=== PATIENT | female | born 1930 | race Asian ===

== ENCOUNTER → 2016-10-31 | Outpatient (CLI) | payer MEDICARE, OTHER | LOC: RAD 17:38 | PROVIDERS: ATTEND Family Medicine | DX: M25.551 Pain in right hip (principal) | CPT/HCPCS: 72110 ==

== ENCOUNTER 2016-11-03 04:18 | Emergency (ER) | payer MEDICARE, OTHER ==
[2016-11-03 04:42] VITALS: BP 171/62
--- NOTE | 2016-11-03 05:03 | ER Document Report ---
ED Hip Pain/Injury - General Chief Complaint: Hip Pain Stated Complaint: HIP PAIN Mode of Arrival: Medic Information source: Patient, Relative Notes: Pt is an 86 year old female who presents to the ER today for right hip pain that comes and goes and is worse with standing. She states it has been present for a few weeks, received an x-ray of the hip on the third of this month, 3 days ago which was negative for any acute pathology, however she did follow-up with orthopedics who states that on physical exam they believe that the hip is fractured, they have placed an MRI for next week. Daughter states that she was complaining of pain so badly today that she decided to bring her back and be further evaluated here in the emergency department for the hip pain, thinking that it is a fracture at this time. Patient denies any numbness, tingling or shooting pain anywhere else. Daughter also states the patient is being treated for UTI and has had 24 hours of an antibiotic, seems better as she apparently had an altered mental status prior to taking antibiotics and daughter states that she is back to her baseline now. Daughter does not remember what the antibiotic is called. Daughter also states that patient may or may not have had some chest pain earlier today on the right side of her chest. She has no history of heart attack or stroke. Patient denies chest pain at this time or prior today. TRAVEL OUTSIDE OF THE [place] IN LAST 30 DAYS: No - Related Data Allergies/Adverse Reactions: rosuvastatin calcium [From Crestor] Allergy (Unknown, Verified 11/03/16 04:42) "Symptoms like the flu" Past Medical History - General Information source: Patient, Relative - Social History Smoking Status: Unknown if Ever Smoked Frequency of alcohol use: None Drug Abuse: None Family History: Reviewed & Not Pertinent Patient has suicidal ideation: No Patient has homicidal ideation: No - Past Medical History Cardiac Medical History: Reports: Hx Congestive Heart Failure, Hx Coronary Artery Disease, Hx Heart Attack - PER EKG READING ON 03/25/14, Hx Hypercholesterolemia, Hx Hypertension Pulmonary Medical History: Reports: Hx COPD, Hx Pneumonia - Hx of 12/2014 Denies: Hx Asthma, Hx Bronchitis, Hx Tuberculosis Neurological Medical History: Denies: Hx Cerebrovascular Accident, Hx Seizures Endocrine Medical History: Reports: Hx Diabetes Mellitus Type 2 Renal/ Medical History: Reports: Hx End Stage Renal Disease GI Medical History: Reports: Hx Gastroesophageal Reflux Disease Musculoskeltal Medical History: Reports Hx Arthritis Traumatic Medical History: Reports: Hx Fractures - RECENT PELVIS Fx Past Surgical History: Reports: Hx Hysterectomy, Hx Orthopedic Surgery - left knee, Hx Vascular Surgery - Immunizations Hx Diphtheria, Pertussis, Tetanus Vaccination: No - unknown Hx Pneumococcal Vaccination: 10/29/13 Review of Systems - Review of Systems Constitutional: No symptoms reported EENT: No symptoms reported Cardiovascular: See HPI Respiratory: No symptoms reported Gastrointestinal: No symptoms reported Genitourinary: See HPI Female Genitourinary: No symptoms reported Musculoskeletal: See HPI Skin: No symptoms reported Hematologic/Lymphatic: No symptoms reported Neurological/Psychological: No symptoms reported Physical Exam - Vital signs Vitals: Temp Pulse Resp BP Pulse Ox 98.5 F 74 16 171/62 H 95 11/03/16 04:41 11/03/16 04:41 11/03/16 04:41 11/03/16 04:41 11/03/16 04:41 - Notes Notes: PHYSICAL EXAMINATION: GENERAL: Well-appearing and in no acute distress. HEAD: Atraumatic, normocephalic. EYES: Pupils equal round and reactive to light, extraocular movements intact, sclera anicteric, conjunctiva are normal. NECK: Normal range of motion, supple without lymphadenopathy LUNGS: CTAB and equal. No wheezes rales or rhonchi. HEART: Chest Nontender to palpation, Regular rate and rhythm without murmurs ABDOMEN: Soft, no tenderness. No guarding, no rebound BACK: Right SI joint tenderness, no tenderness to the right lateral hip or femur , no vertebral tenderness, normal ROM GI/: no CVA tenderness EXTREMITIES: Normal range of motion, no pitting edema. No cyanosis. NEUROLOGICAL: Cranial nerves grossly intact. Normal sensory/motor exams. PSYCH: Normal mood, normal affect. SKIN: Warm, Dry, normal turgor, no rashes or lesions noted Course - Re-evaluation Re-evalutation: 11/03/16 06:40 Lab work is unremarkable today, patient is at her baseline with kidney function with slightly elevated potassium but has dialysis in 1-1/2 hours. She will be discharged from here to go to dialysis on time. White count is normal here, patient does have a UTI but daughter states that she looks much better and is already on antibiotics that she's only been on for 2 doses. Advise her to continue those. CT of the hip/pelvis was performed and negative for any fracture or acute pathology. Patient is actually tender directly over the SI joint only, I will treat her with a muscle relaxer as she already takes narcotic pain medication at home and I will not give her steroids due to her chronic illnesses and dialysis. EKG was completely unchanged from recent EKG months ago with no evidence of abnormality or ischemia. 11/03/16 07:04 - Vital Signs Vital signs: Temp Pulse Resp BP Pulse Ox 98.5 F 74 16 171/62 H 95 11/03/16 04:41 11/03/16 04:41 11/03/16 04:41 11/03/16 04:41 11/03/16 04:41 - Laboratory Result Diagrams: 11/03/16 05:12 11/03/16 05:12 Laboratory results interpreted by me: 11/03/16 11/03/16 11/03/16 05:05 05:12 05:12 MCV 102 H MCH 33.6 H Potassium 5.4 H Chloride 97 L Carbon Dioxide 21 L Anion Gap 20 H BUN 54 H Creatinine 6.25 H Est GFR ( Amer) 8 L Est GFR (Non-Af Amer) 6 L Urine Protein 100 H Ur Leukocyte Esterase MODERATE H Discharge - Discharge Clinical Impression: Hip pain Qualifiers: Laterality: right Qualified Code(s): M25.551 - Pain in right hip UTI (urinary tract infection) Qualifiers: Urinary tract infection type: site unspecified Hematuria presence: without hematuria Qualified Code(s): N39.0 - Urinary tract infection, site not specified Condition: Stable Disposition: HOME, SELF-CARE Instructions: Urinary Tract Infection ([facility]) Additional Instructions: Return immediately for any new or worsening symptoms. Follow up with primary care provider, call tomorrow to make followup appointment. Prescriptions: Methocarbamol [Robaxin 500 mg Tablet] 500 mg PO QID PRN #40 tablet PRN Reason: Referrals: MC GONZALEZ MD [Primary Care Provider] - Follow up as needed
[2016-11-03 05:30] LABS: ABSOLUTE BASOPHILS # (AUTO) 0.1 10^3/uL (0.0-0.2); ABSOLUTE EOSINOPHILS # (AUTO) 0.2 10^3/uL (0.0-0.6); ABSOLUTE LYMPHOCYTES (AUTO) 1.2 10^3/uL (0.5-4.7); ABSOLUTE MONOCYTES (AUTO) 0.5 10^3/uL (0.1-1.4); BASOPHILS % (AUTO) 0.8 % (0-2); EOSINOPHILS % (AUTO) 2.3 % (0-6); HEMATOCRIT 38.2 % (36.0-47.0); HEMOGLOBIN 12.6 g/dL (12.0-15.5); HGB HCT DIFFERENCE -0.4; LYMPHOCYTES % (AUTO) 15.3 % (13-45); MEAN CORPUSCULAR HEMOGLOBIN 33.6 pg (27.0-33.4); MEAN CORPUSCULAR HGB CONC 32.9 g/dL (32.0-36.0); MEAN CORPUSCULAR VOLUME 102 fl (80-97); MONOCYTES % (AUTO) 6.7 % (3-13); RED BLOOD COUNT 3.74 10^6/uL (3.72-5.28); SEGMENTED NEUTROPHILS % (AUTO) 74.9 % (42-78)
[2016-11-03 05:37] LABS: APPEARANCE,URINE CLEAR; BILIRUBIN,URINE NEGATIVE (NEGATIVE); GLUCOSE, URINE NEGATIVE (NEGATIVE); KETONES,URINE NEGATIVE (NEGATIVE); LEUKOCYTE ESTERASE,URINE MODERATE (NEGATIVE); NITRITE,URINE NEGATIVE (NEGATIVE); PROTEIN,URINE 100 mg/dL (NEGATIVE); URINE SPECIFIC GRAVITY 1.014; UROBILINOGEN,URINE NEGATIVE mg/dL (<2.0)
[2016-11-03 05:49] LABS: ALANINE AMINOTRANSFERASE 25 U/L (9-52); ALBUMIN 4.8 g/dL (3.5-5.0); ALKALINE PHOSPHATASE 105 U/L (38-126); ASPARTATE AMINO TRANSFERASE 17 U/L (14-36); BILIRUBIN,TOTAL 0.5 mg/dL (0.2-1.3); BLOOD UREA NITROGEN 54 mg/dL (7-20); CALCIUM 9.2 mg/dL (8.4-10.2); CREATININE RESULT 6.25 mg/dL (0.52-1.25); GLUCOSE 102 mg/dL (75-110); POTASSIUM 5.4 mmol/L (3.6-5.0); SODIUM 138.3 mmol/L (137-145)
[2016-11-03 06:02] LABS: CARBON DIOXIDE 21 mmol/L (22-30); CHLORIDE 97 mmol/L (98-107)
[2016-11-03 06:06] LABS: ANION GAP 20 (5-19)
[2016-11-03] MEDS ORDERED: METHOCARBAMOL 500 MG TABLET PO ONE (06:27)
--- NOTE | 2016-11-03 10:24 | EKG REPORT ---
SEVERITY:- ABNORMAL ECG - SINUS RHYTHM FIRST DEGREE AV BLOCK BORDERLINE R WAVE PROGRESSION, ANTERIOR LEADS : Confirmed by: Rigo Herrera 03-Nov-2016 10:22:47
== END 2016-11-03 06:40 | disposition home or self-care (01) ==
LOC: ER 04:18
DX: M25.551 Pain in right hip (principal); N39.0 Urinary tract infection, site not specified; I25.10 Atherosclerotic heart disease of native coronary artery without angina pectoris; E11.22 Type 2 diabetes mellitus with diabetic chronic kidney disease; I12.0 Hypertensive chronic kidney disease with stage 5 chronic kidney disease or end stage renal disease; N18.6 End stage renal disease; Z99.2 Dependence on renal dialysis; J44.9 Chronic obstructive pulmonary disease, unspecified; Z87.81 Personal history of (healed) traumatic fracture; Z79.891 Long term (current) use of opiate analgesic; Z88.8 Allergy status to other drugs, medicaments and biological substances
CPT/HCPCS: 93005; 99284; 51701; 36415; 85025; 80053; 81001; 72192; 93010; A9270

== ENCOUNTER 2016-11-28 06:37 | Day surgery (SDC) | payer MEDICARE, OTHER ==
[2016-11-28 07:22] LABS: ABSOLUTE BASOPHILS # (AUTO) 0.1 10^3/uL (0.0-0.2); ABSOLUTE EOSINOPHILS # (AUTO) 0.3 10^3/uL (0.0-0.6); ABSOLUTE LYMPHOCYTES (AUTO) 1.2 10^3/uL (0.5-4.7); ABSOLUTE MONOCYTES (AUTO) 0.7 10^3/uL (0.1-1.4); ABSOLUTE NEUT (AUTO) 2.9 10^3/uL (1.7-8.2); BASOPHILS % (AUTO) 1.8 % (0-2); EOSINOPHILS % (AUTO) 5.5 % (0-6); HEMATOCRIT 31.7 % (36.0-47.0); HEMOGLOBIN 10.5 g/dL (12.0-15.5); HGB HCT DIFFERENCE -0.2; MEAN CORPUSCULAR HGB CONC 33.3 g/dL (32.0-36.0); MEAN CORPUSCULAR VOLUME 99 fl (80-97); RED BLOOD COUNT 3.19 10^6/uL (3.72-5.28); RED CELL DISTRIBUTION WIDTH 13.8 % (11.5-14.0); SEGMENTED NEUTROPHILS % (AUTO) 56.7 % (42-78); WHITE BLOOD COUNT 5.2 10^3/uL (4.0-10.5)
[2016-11-28 07:24] LABS: PROTHROMBIN TIME 13.3 SEC (11.4-15.4)
[2016-11-28 07:25] LABS: PARTIAL THROMBOPLASTIN TIME 31.7 SEC (23.5-35.8)
[2016-11-28 07:30] LABS: ANION GAP 14 (5-19); BLOOD UREA NITROGEN 30 mg/dL (7-20); CALCIUM 8.9 mg/dL (8.4-10.2); CARBON DIOXIDE 26 mmol/L (22-30); CHLORIDE 98 mmol/L (98-107); CREATININE RESULT 4.11 mg/dL (0.52-1.25); GLUCOSE 90 mg/dL (75-110); POTASSIUM 4.6 mmol/L (3.6-5.0); SODIUM 138.2 mmol/L (137-145)
[2016-11-28] MEDS ORDERED: LIDOCAINE 0.5% INJ-PF (5 MG/ML) 50 ML SDV ONE (08:09)
[2016-11-28] MEDS ORDERED: OXYCODONE-ACETAMINOPHEN 5-325 MG TABLET ONE (08:26)
[2016-11-28] MEDS ORDERED: DIAZEPAM 5 MG TABLET ONE ×2 (08:26→08:32)
[2016-11-28] MEDS ORDERED: MIDAZOLAM 2 MG/2 ML INJ ONE (08:27)
[2016-11-28] MEDS ORDERED: FENTANYL CITRATE INJ/PF 100 MCG/2 ML AMPUL ONE (08:28)
[2016-11-28] MEDS ORDERED: HEPARIN SOD (PORCINE) 5,000 UNIT/ML 1 ML SYRINGE ONE (08:28)
--- NOTE | 2016-11-28 09:37 | PDOC H&P ---
General Chief Complaint: This patient was referred across for evaluation and treatment of fistula. Apparently flow rates have been in decline. She is needed to have angioplasty every few months for the last year or so. It seems worthwhile and preserving this pressures transposed fistula, and a fragile patient. - Current Medications/Allergies Home Medications: Hydralazine HCl 50 mg PO TID 03/12/14 Omeprazole [Prilosec] 40 mg PO DAILY 03/12/14 Allopurinol 100 mg PO DAILY 04/30/14 Amlodipine Besylate [Norvasc 10 mg Tablet] 10 mg PO DAILY 05/01/14 Sevelamer HCl [Renagel] 2,400 mg PO BID 02/23/15 Aspirin 81 mg PO DAILY 05/28/15 Citalopram Hydrobromide [Celexa 10 mg Tablet] 10 mg PO QHS 05/28/15 Docusate Sodium [Colace 100 mg Capsule] 100 mg PO BID 05/28/15 Furosemide [Lasix 40 mg Tablet] 40 mg PO BID 05/28/15 Clonidine HCl [Catapres] 0.1 mg PO DAILY 06/30/15 Acetaminophen [Tylenol Extra Strength] 2 tab PO PRN PRN 08/10/15 Oxycodone HCl 5 mg PO ASDIR PRN 08/10/15 Clonidine HCl 0.2 mg PO QHS 11/28/16 Methocarbamol [Robaxin 500 mg Tablet] 500 mg PO Q8 11/28/16 Allergies/Adverse Reactions: rosuvastatin calcium [From Crestor] Allergy (Unknown, Verified 11/28/16 07:24) "Symptoms like the flu" Past Medical History Cardiac Medical History: Reports: Congestive Heart Failure, Coronary Artery Disease, Myocardial Infarction - PER EKG READING ON 03/25/14, Hyperlipidema, Hypertension Pulmonary Medical History: Reports: Chronic Obstructive Pulmonary Disease (COPD) , Pneumonia - Hx of 12/2014 Denies: Asthma, Bronchitis, Tuberculosis Neurological Medical History: Denies: Seizures Endocrine Medical History: Reports: Diabetes Mellitus Type 2 Renal/ Medical History: Reports: End Stage Renal Disease GI Medical History: Reports: Gastroesophageal Reflux Disease Musculoskeltal Medical History: Reports: Arthritis Hematology: Denies: Anemia Past Surgical History Past Surgical History: Reports: Hysterectomy, Orthopedic Surgery - left knee, Vascular Surgery Family History Family History: Reviewed & Not Pertinent Parental Family History Reviewed: No Children Family History Reviewed: No Sibling(s) Family History Reviewed.: No Social History Smoking Status: Never Smoker Frequency of Alcohol Use: None Hx Recreational Drug Use: No Hx Prescription Drug Abuse: No Physical Exam Vital Signs: Temp Pulse Resp BP Pulse Ox 98.7 F 64 16 160/52 H 97 11/28/16 07:11 11/28/16 09:15 11/28/16 07:11 11/28/16 07:11 11/28/16 07:11 Intake & Output 11/27/16 11/28/16 11/29/16 06:59 06:59 06:59 Weight 59.874 kg Additional comments: A well-developed well-nourished [place] lady. Mildly increased body habitus. No acute distress. Eyes membranes is pink and moist, sclerae anicteric. Respiratory no shortness of breath. Breath sounds are normal and equal bilaterally. Cardiac: Heart sounds 1 and 2 heard, no murmurs. Upper extremities show normal range of movement and pulsatile to the radials. Normal capillary refill. A transposed basilic to brachial fistula is appreciated. In the left upper extremity. Somewhat firm, suggesting cephalad stenosis. Psychiatric the patient is alert, oriented, judgment, memory, insight normal Impression/Plan Impression: #1 malfunctioning AV fistula left transposed basilic to brachial. #2 end-stage renal disease on hemodialysis. #3 diabetes mellitus type II. #4 coronary artery disease. #5 history of uterine cancer. #6 history of back pain. Plan: The plan is to admit the patient for ambulatory angiogram and possible angioplasty as needed. The risks, benefits, expected outcome and alternatives her family to the patient and her daughter.
--- NOTE | 2016-11-28 09:40 | PDOC DISCHARGE SUMMARY ---
Discharge Summary (SDC) - Discharge Final Diagnosis: #1 malfunctioning AV fistula left transposed basilic to brachial. #2 end-stage renal disease on hemodialysis. #3 diabetes mellitus type II. #4 coronary artery disease. #5 history of uterine cancer. #6 history of back pain. Date of Surgery: 11/28/16 Discharge Date: 11/28/16 Condition: Fair Treatment or Instructions: #1 activities within moderation encouraged. #2 follow up in my office by appointment in about 1 month. Call for appointment. #3 the wounds covered clean and dry until removed in dialysis. #4 hold off on school/work until evaluation in office. #5 may shower in 48 hours, keep operated area as dry as possible. #6 discharge from ambulatory when ASU criteria met. #7 medications per medication reconciliation sheet. #8 ADA diet. Discharge Diet: Other (Comments) - Renal, ADA. Respiratory Treatments at Home: Deep Breathing/Coughing Discharge Activity: Activity As Tolerated Report the Following to Your Physician Immediately: Unusual Bleeding
--- NOTE | 2016-11-28 09:46 | Operative Report ---
Operative Report DATE OF SURGERY: 11/28/16 PREOPERATIVE DIAGNOSIS: #1 malfunctioning AV fistula left transposed basilic to brachial. #2 end-stage renal disease on hemodialysis. #3 diabetes mellitus type II. #4 coronary artery disease. #5 history of uterine cancer. #6 history of back pain. POSTOPERATIVE DIAGNOSIS: #1 malfunctioning AV fistula left transposed basilic to brachial. #2 end-stage renal disease on hemodialysis. #3 diabetes mellitus type II. #4 coronary artery disease. #5 history of uterine cancer. #6 history of back pain. OPERATION: #1 needle introduction and arteriovenous fistula. #2 angioplasty and fistula. #3 angiogram and interpretation. SURGEON: CORTEZ RIGGINS RADIO DIRECTOR: none ANESTHESIA: Moderate Sedation TISSUE REMOVED OR ALTERED: Not applicable. ESTIMATED BLOOD LOSS: 2 mL. INTRAOPERATIVE FINDINGS: Of an initially very firm left basilic transposed fistula. Culprit lesions at about 25 cm, the connecting point of the basilic vein to the brachial vein and also at 17 cm. Each of these quite significant easily 90% of the adjacent lumen and for about 2 or 3 mm in length. The 17 cm lesion completely resolved. The lesion at 25 cm exhibited rebound with a residual 20% stenosis. Inflating with a larger balloon in this case 9 or 10 mm was considered but given the initial small size and the fragility of this patient's ulceration. Inserting a stent is certainly a possible solution but with very grave possibility of jailing the brachial vein. In addition after the procedure holding pressure resulted in continued bleeding for some time. A suture was placed and pressure continued. PROCEDURE: PROCEDURE: After verifying the procedure and having obtained informed consent, the patient's left arm was prepared with Chlorhexidine and draped out with sterile linen. Local anesthesia infiltrated. Percutaneous access into the fistula ,[ antegrade], obtained about [6 cm] from the arteriovenous anastomosis using a micro puncture needle followed by micro puncture wire and then a micro puncture catheter. Angiogram demonstrated the aforementioned findings. Angioplasty was elected. A 0.035 Baxter wire was inserted, and over this, a 7 Korean short introducer was placed, this was followed by a [8] angioplasty balloon . Angioplasty was serially done from the upper fistula down to the introducer. Inflating up to 18 atmospheres for 1-2 minutes at a time.]. Completion angiogram demonstrated fairly [satisfactory result]. The instrumentation was now withdrawn over pressure for over 20 minutes. Dressings applied, procedure concluded. Exposure time: 0.3 minutes Radiation: 14 ronni per centimeters squared Contrast: 25 mL of Isovue-M 300 low osmolality. DICTATING PHYSICIAN: CORTEZ HOGAN M.D. cc: CORTEZ HOGAN M.D. ([id number]) >>
--- NOTE | 2016-11-28 11:05 | EKG REPORT ---
SEVERITY:- ABNORMAL ECG - SINUS RHYTHM ATRIAL PREMATURE COMPLEX FIRST DEGREE AV BLOCK CONSIDER LEFT VENTRICULAR HYPERTROPHY : Confirmed by: Rigo Herrera 28-Nov-2016 11:03:46
[2016-11-28 11:13] VITALS: BP 151/41
== END 2016-11-28 11:00 | disposition home or self-care (01) ==
LOC: CCL 06:37
PROVIDERS: ATTEND Surgery
PROC: 057A3DZ Dilation of Left Brachial Vein with Intraluminal Device, Percutaneous Approach (ICD-10-PCS; principal; 2016-11-28)
DX: T82.858A Stenosis of other vascular prosthetic devices, implants and grafts, initial encounter (principal); Y83.2 Surgical operation with anastomosis, bypass or graft as the cause of abnormal reaction of the patient, or of later complication, without mention of misadventure at the time of the procedure; Z79.01 Long term (current) use of anticoagulants; E11.22 Type 2 diabetes mellitus with diabetic chronic kidney disease; N18.6 End stage renal disease; Z99.2 Dependence on renal dialysis; I25.10 Atherosclerotic heart disease of native coronary artery without angina pectoris; I50.9 Heart failure, unspecified; J44.9 Chronic obstructive pulmonary disease, unspecified; M19.90 Unspecified osteoarthritis, unspecified site; K21.9 Gastro-esophageal reflux disease without esophagitis; Z79.82 Long term (current) use of aspirin; Z88.8 Allergy status to other drugs, medicaments and biological substances; I25.2 Old myocardial infarction; Z85.42 Personal history of malignant neoplasm of other parts of uterus; Z79.899 Other long term (current) drug therapy
CPT/HCPCS: 36415; 85025; 85610; 85730; 80048; 36902; 36901; 71010; 93005; 93010; C1725; C1752; C1894; Q9967; C1769; J1644 ×2; A9270 ×2; J3490; J2250; J3010

== ENCOUNTER 2016-12-11 11:43 | Inpatient (IN) | payer MEDICARE, OTHER ==
[2016-12-11] MEDS ORDERED: IPRATROPIUM/ALBUTEROL 0.5-2.5 MG/3 ML AMPUL NEB ONE (11:57)
[2016-12-11] MEDS ORDERED: ONDANSETRON HCL INJ/PF 4 MG/2 ML SDV IV ONE (11:57)
--- NOTE | 2016-12-11 12:01 | ER Document Report ---
ED General - General Chief Complaint: Cough Stated Complaint: WEAKNESS Time seen by provider: 11:58 Mode of Arrival: Medic Information source: Patient, Relative Notes: 86-year-old female with a four-day history of generalized weakness and nonproductive cough. Patient was supposed to go to dialysis this morning but in route began vomiting after coughing episode and patient came to emergency department instead. Family reports patient ordinarily does dialysis and Dr. Rodriguez Sunday last week did Sunday and . Patient traveled out of town this weekend in spite of feeling weak. Family reports she still makes urine but had not noticed any dysuria. Other allergies had no fever, diarrhea. She dialyzes through left upper extremity fistula that is still working as far as they know. Patient denies any specific chest pain, abdominal pain, back pain, earache, sore throat. Physical Exam: General: Alert, appears well. HEENT: Normocephalic. Atraumatic. PERRLA. Extraocular movements intact. Oropharynx clear. Neck: Supple. Non-tender. No JVD Respiratory: No respiratory distress. Scattered rhonchi bilaterally breath sounds equal no accessory muscle use Cardiovascular: Regular rate and rhythm. PMI not displaced Abdominal: Normal Inspection. Soft, non-tender. No distension. Normal Bowel Sounds. Back: Non-tender. No deformity or step off. Extremities: Moves all four extremities. Upper extremities: Normal inspection. Non-tender. Normal color. Normal ROM. Normal temperature. Left upper extremity dialysis access site appears healthy Both lower extremities warm no cyanosis no edema no Homans sign. Neurological: Patient slow to answer questions. Life Management Teacher strength 5 out of 5 equal both upper extremities motor function 4-5 equal both lower extremities Psychological: Normal affect. Normal Mood. Skin: Warm. Dry. Normal color. TRAVEL OUTSIDE OF THE [place] IN LAST 30 DAYS: No - Related Data Allergies/Adverse Reactions: rosuvastatin calcium [From Crestor] Allergy (Unknown, Verified 12/11/16 13:24) "Symptoms like the flu" Past Medical History - Social History Smoking Status: Never Smoker Family History: Reviewed & Not Pertinent - Past Medical History Cardiac Medical History: Reports: Hx Congestive Heart Failure, Hx Coronary Artery Disease, Hx Heart Attack - PER EKG READING ON 03/25/14, Hx Hypercholesterolemia, Hx Hypertension Pulmonary Medical History: Reports: Hx COPD, Hx Pneumonia - Hx of 12/2014 Denies: Hx Asthma, Hx Bronchitis, Hx Tuberculosis Neurological Medical History: Denies: Hx Cerebrovascular Accident, Hx Seizures Endocrine Medical History: Reports: Hx Diabetes Mellitus Type 2 Renal/ Medical History: Reports: Hx End Stage Renal Disease GI Medical History: Reports: Hx Gastroesophageal Reflux Disease Musculoskeltal Medical History: Reports Hx Arthritis Traumatic Medical History: Reports: Hx Fractures - RECENT PELVIS Fx Past Surgical History: Reports: Hx Hysterectomy, Hx Orthopedic Surgery - left knee, Hx Vascular Surgery - Immunizations Hx Diphtheria, Pertussis, Tetanus Vaccination: Yes Hx Pneumococcal Vaccination: 07/29/16 Review of Systems - Review of Systems Constitutional: denies: Chills, Fever EENT: denies: Ear pain, Throat pain Cardiovascular: denies: Chest pain Respiratory: Cough, Short of breath Gastrointestinal: Vomiting. denies: Abdominal pain, Diarrhea Genitourinary: denies: Burning Female Genitourinary: denies: Musculoskeletal: denies: Back pain Hematologic/Lymphatic: denies: Swollen glands Neurological/Psychological: Weakness - Generalized Physical Exam - Vital signs Vitals: Temp Pulse Resp BP Pulse Ox 98.7 F 85 20 184/45 H 99 12/11/16 11:49 12/11/16 11:49 12/11/16 11:49 12/11/16 11:49 12/11/16 11:49 Course - Re-evaluation Re-evalutation: 12/11/16 17:45 And discussed disposition with patient's daughter. They're concerned the patient is not safe at home because her inability to walk. I believe her increasing weakness is due to a right lower lobe pneumonia and she also has some of her UTI. She is started on IV antibiotics. We had some difficulty getting chemistry results but ultimately potassiums come back at 6.1. The patient is not have any evidence of volume overload and did not believe she needs emergent dialysis. I discussed case with Dr. Zamorano who requested [facility] bed and discussed case with Dr. Rodriguez who is agreeing to provide inpatient dialysis - Vital Signs Vital signs: Temp Pulse Resp BP Pulse Ox 98.7 F 85 13 196/58 H 98 12/11/16 11:49 12/11/16 11:49 12/11/16 13:01 12/11/16 13:01 12/11/16 13:01 - Laboratory Result Diagrams: 12/11/16 12:45 12/11/16 16:45 Laboratory results interpreted by me: 12/11/16 12/11/16 12/11/16 12:45 13:55 16:45 WBC 12.5 H RBC 2.96 L Hgb 9.9 L Hct 29.8 L MCV 101 H RDW 15.0 H Seg Neutrophils % 87.1 H Lymphocytes % 5.7 L Absolute Neutrophils 10.9 H Sodium 134.1 L Potassium 6.1 H* Carbon Dioxide 17 L BUN 63 H Creatinine 8.19 H Est GFR ( Amer) 6 L Est GFR (Non-Af Amer) 5 L Glucose 120 H Total Bilirubin 1.9 H AST 13 L Urine Protein 100 H Urine Blood SMALL H Ur Leukocyte Esterase MODERATE H - Diagnostic Test Radiology reviewed: Image reviewed, Reports reviewed - EKG Interpretation by Me Additional EKG results interpreted by me: 12/11/16 12:32 EKG review, so shows sinus rhythm at 79 first degree AV block no acute change no significant change compared to 11/28/2016 Discharge - Discharge Clinical Impression: End stage renal failure on dialysis Pneumonia Qualifiers: Pneumonia type: due to unspecified organism Laterality: right Lung location: lower lobe of lung Qualified Code(s): J18.1 - Lobar pneumonia, unspecified organism Urinary tract infection Qualifiers: Urinary tract infection type: site unspecified Hematuria presence: without hematuria Qualified Code(s): N39.0 - Urinary tract infection, site not specified Condition: Fair Disposition: ADMITTED INPATIENT Admitting Provider: Zamorano Unit Admitted: [facility]
[2016-12-11 13:00] LABS: ABSOLUTE EOSINOPHILS # (AUTO) 0.1 10^3/uL (0.0-0.6); ABSOLUTE LYMPHOCYTES (AUTO) 0.7 10^3/uL (0.5-4.7); ABSOLUTE MONOCYTES (AUTO) 0.7 10^3/uL (0.1-1.4); ABSOLUTE NEUT (AUTO) 10.9 10^3/uL (1.7-8.2); BASOPHILS % (AUTO) 0.4 % (0-2); EOSINOPHILS % (AUTO) 1.2 % (0-6); HEMATOCRIT 29.8 % (36.0-47.0); HEMOGLOBIN 9.9 g/dL (12.0-15.5); HGB HCT DIFFERENCE -0.1; LYMPHOCYTES % (AUTO) 5.7 % (13-45); MEAN CORPUSCULAR HEMOGLOBIN 33.4 pg (27.0-33.4); MEAN CORPUSCULAR HGB CONC 33.2 g/dL (32.0-36.0); MEAN CORPUSCULAR VOLUME 101 fl (80-97); MONOCYTES % (AUTO) 5.6 % (3-13); RED BLOOD COUNT 2.96 10^6/uL (3.72-5.28); SEGMENTED NEUTROPHILS % (AUTO) 87.1 % (42-78); WHITE BLOOD COUNT 12.5 10^3/uL (4.0-10.5)
[2016-12-11 14:19] LABS: APPEARANCE,URINE SLIGHTLY-CLOUDY; BILIRUBIN,URINE NEGATIVE (NEGATIVE); GLUCOSE, URINE NEGATIVE (NEGATIVE); KETONES,URINE NEGATIVE (NEGATIVE); LEUKOCYTE ESTERASE,URINE MODERATE (NEGATIVE); NITRITE,URINE NEGATIVE (NEGATIVE); PROTEIN,URINE 100 mg/dL (NEGATIVE); URINE SPECIFIC GRAVITY 1.015; UROBILINOGEN,URINE NEGATIVE mg/dL (<2.0)
[2016-12-11] MEDS ORDERED: VANCOMYCIN HCL INJ 1000 MG VIAL IV ONE (16:19)
[2016-12-11] MEDS ORDERED: CEFEPIME 2 GM/D5W RTU 50 ML IV ONE (16:20)
[2016-12-11] MEDS ORDERED: LEVOFLOXACIN 750 MG TABLET PO ONE (16:20)
[2016-12-11 17:14] LABS: ALANINE AMINOTRANSFERASE 15 U/L (9-52); ALBUMIN 4.2 g/dL (3.5-5.0); ALKALINE PHOSPHATASE 99 U/L (38-126); ANION GAP 18 (5-19); ASPARTATE AMINO TRANSFERASE 13 U/L (14-36); BILIRUBIN,TOTAL 1.9 mg/dL (0.2-1.3); BLOOD UREA NITROGEN 63 mg/dL (7-20); CALCIUM 9.2 mg/dL (8.4-10.2); CARBON DIOXIDE 17 mmol/L (22-30); CHLORIDE 99 mmol/L (98-107); CREATINE KINASE 52 U/L (30-135); CREATININE RESULT 8.19 mg/dL (0.52-1.25); GLUCOSE 120 mg/dL (75-110); LIPASE 44.5 U/L (23-300); MAGNESIUM 2.1 mg/dL (1.6-2.3); SODIUM 134.1 mmol/L (137-145); TOTAL PROTEIN 6.6 g/dL (6.3-8.2)
[2016-12-11 17:19] LABS: POTASSIUM 6.1 mmol/L (3.6-5.0)
[2016-12-11 17:26] LABS: CREATINE KINASE MB 2.49 ng/mL (<4.55)
[2016-12-11 17:28] LABS: TROPONIN I 0.112 ng/mL
[2016-12-11] MEDS ORDERED: ONDANSETRON HCL INJ/PF 4 MG/2 ML SDV IV PRN (17:47)
[2016-12-11] MEDS ORDERED: OXYCODONE-ACETAMINOPHEN 5-325 MG TABLET PO PRN (17:47)
[2016-12-11] MEDS ORDERED: FUROSEMIDE INJ/PF 40 MG/4 ML SDV IV ONE (17:50)
[2016-12-11] MEDS ORDERED: SODIUM POLYSTYRENE SULFONATE 15 GM/60 ML PO ONE (17:50)
[2016-12-11] MEDS ORDERED: DEXTROSE 40% GEL 15 GM TUBE PO PRN ×2 (17:50)
[2016-12-11] MEDS ORDERED: DEXTROSE 50%-WATER 25 GM/50 ML DISP.SYRIN IV PRN ×2 (17:50)
[2016-12-11] MEDS ORDERED: INSULIN LISPRO 100 UNIT/ML 3 ML VIAL SUBCUT PRN (17:50)
[2016-12-11] MEDS ORDERED: GLUCAGON,HUMAN RECOMB 1 MG INJ IM PRN (17:50)
--- NOTE | 2016-12-11 17:59 | PDOC H&P ---
History of Present Illness Admission Date/PCP: [facility] GONZALEZ MD Patient complains of: weak/cough and congestion History of Present Illness: DAVID FLETCHER is a 86 year old female pt came with c/o weakness and not feeling well since came from [place] pt aslo c/o cough and congstion and er pt wbc is elevated and cxr shows vasculer congetion vs infiltrate pt also miss appt for hd today pt potassium was 6.1 and d/w nephrology and give lasix and kaxlate and no ekg chage and hd in am Past Medical History Cardiac Medical History: Reports: Congestive Heart Failure, Coronary Artery Disease, Myocardial Infarction - PER EKG READING ON 03/25/14, Hyperlipidema, Hypertension Pulmonary Medical History: Reports: Chronic Obstructive Pulmonary Disease (COPD) , Pneumonia - Hx of 12/2014 Denies: Asthma, Bronchitis, Tuberculosis Neurological Medical History: Denies: Seizures Endocrine Medical History: Reports: Diabetes Mellitus Type 2 Renal/ Medical History: Reports: End Stage Renal Disease GI Medical History: Reports: Gastroesophageal Reflux Disease Musculoskeltal Medical History: Reports: Arthritis Hematology: Denies: Anemia Past Surgical History Past Surgical History: Reports: Hysterectomy, Orthopedic Surgery - left knee, Vascular Surgery Social History Smoking Status: Never Smoker Frequency of Alcohol Use: None Hx Recreational Drug Use: No Hx Prescription Drug Abuse: No Family History Family History: Reviewed & Not Pertinent Parental Family History Reviewed: Yes Children Family History Reviewed: Yes Sibling(s) Family History Reviewed.: Yes Medication/Allergy Allergies/Adverse Reactions: rosuvastatin calcium [From Crestor] Allergy (Unknown, Verified 12/11/16 13:24) "Symptoms like the flu" Review of Systems Constitutional: PRESENT: fatigue, weakness Nose, Mouth, and Throat: ABSENT: as per HPI, headache(s), mouth pain, sore throat, vertigo, other Cardiovascular: ABSENT: as per HPI, chest pain, dyspnea on exertion, edema, orthropnea, palpitations, other Respiratory: PRESENT: cough Gastrointestinal: PRESENT: nausea, vomiting Genitourinary: ABSENT: as per HPI, difficulty urinating, dysuria, hematuria, nocturia, other Musculoskeletal: PRESENT: back pain Neurological: ABSENT: as per HPI, abnormal gait, abnormal movements, abnormal speech, confusion, convulsions, dizziness, focal weakness, frequent falls, lack of coordination, memory loss, numbness, paresthesias, restless legs, syncope, tingling, tremor(s), vertigo, weakness, other Psychiatric: PRESENT: anxiety Physical Exam Vital Signs: Temp Pulse Resp BP Pulse Ox 98.7 F 85 13 196/58 H 98 12/11/16 11:49 12/11/16 11:49 12/11/16 13:01 12/11/16 13:01 12/11/16 13:01 General appearance: PRESENT: no acute distress Head exam: PRESENT: normocephalic Eye exam: PRESENT: PERRLA Mouth exam: PRESENT: moist Neck exam: PRESENT: full ROM Respiratory exam: PRESENT: clear to auscultation irma Cardiovascular exam: PRESENT: +S1, +S2 GI/Abdominal exam: PRESENT: normal bowel sounds, soft. ABSENT: tenderness Extremities exam: ABSENT: pedal edema Musculoskeletal exam: PRESENT: deformity Neurological exam: PRESENT: alert, awake, oriented to person, oriented to place Psychiatric exam: PRESENT: anxious Skin exam: PRESENT: dry, normal color Results Laboratory Results: 12/11/16 12:45 12/11/16 16:45 12/11/16 12/11/16 12/11/16 12:45 12:45 13:55 WBC 12.5 H RBC 2.96 L Hgb 9.9 L Hct 29.8 L MCV 101 H MCH 33.4 MCHC 33.2 RDW 15.0 H Plt Count 195 Seg Neutrophils % 87.1 H Lymphocytes % 5.7 L Monocytes % 5.6 Eosinophils % 1.2 Basophils % 0.4 Absolute Neutrophils 10.9 H Absolute Lymphocytes 0.7 Absolute Monocytes 0.7 Absolute Eosinophils 0.1 Absolute Basophils 0.0 Sodium Cancelled Potassium Cancelled Chloride Cancelled Carbon Dioxide Cancelled Anion Gap Cancelled BUN Cancelled Creatinine Cancelled Est GFR ( Amer) Cancelled Est GFR (Non-Af Amer) Cancelled Glucose Cancelled Calcium Cancelled Magnesium Cancelled Total Bilirubin Cancelled AST Cancelled ALT Cancelled Alkaline Phosphatase Cancelled Total Protein Cancelled Albumin Cancelled Lipase Cancelled Urine Color YELLOW Urine Appearance SLIGHTLY-CLOUDY Urine pH 5.0 Ur Specific [place] 1.015 Urine Protein 100 H Urine Glucose (UA) NEGATIVE Urine Ketones NEGATIVE Urine Blood SMALL H Urine Nitrite NEGATIVE Ur Leukocyte Esterase MODERATE H Urine WBC (Auto) 23 Urine RBC (Auto) 8 12/11/16 16:45 WBC RBC Hgb Hct MCV MCH MCHC RDW Plt Count Seg Neutrophils % Lymphocytes % Monocytes % Eosinophils % Basophils % Absolute Neutrophils Absolute Lymphocytes Absolute Monocytes Absolute Eosinophils Absolute Basophils Sodium 134.1 L Potassium 6.1 H* Chloride 99 Carbon Dioxide 17 L Anion Gap 18 BUN 63 H Creatinine 8.19 H Est GFR ( Amer) 6 L Est GFR (Non-Af Amer) 5 L Glucose 120 H Calcium 9.2 Magnesium 2.1 Total Bilirubin 1.9 H AST 13 L ALT 15 Alkaline Phosphatase 99 Total Protein 6.6 Albumin 4.2 Lipase 44.5 Urine Color Urine Appearance Urine pH Ur Specific [place] Urine Protein Urine Glucose (UA) Urine Ketones Urine Blood Urine Nitrite Ur Leukocyte Esterase Urine WBC (Auto) Urine RBC (Auto) 12/11/16 12/11/16 12/11/16 12:45 12:45 16:45 Creatine Kinase Cancelled 52 CK-MB (CK-2) Cancelled Troponin I Cancelled 12/11/16 16:45 Creatine Kinase CK-MB (CK-2) 2.49 Troponin I 0.112 Impressions: Chest X-Ray 12/11/16 11:56 IMPRESSION: Cardiomegaly with mild pulmonary vascular congestion. On the current study there is some blunting of the costophrenic angles suggesting small bilateral pleural effusions. Other findings as noted above Assessment & Plan - Diagnosis (1) End stage renal disease on dialysis Is this a current diagnosis for this admission?: YesPlan: on hd consult dr alva (2) Pneumonia Qualifiers: Pneumonia type: due to unspecified organism Laterality: right Lung location: lower lobe of lung Qualified Code(s): J18.1 - Lobar pneumonia, unspecified organism Is this a current diagnosis for this admission?: YesPlan: start iv antibiotics (3) UTI (urinary tract infection) Qualifiers: Urinary tract infection type: site unspecified Hematuria presence: without hematuria Qualified Code(s): N39.0 - Urinary tract infection, site not specified Is this a current diagnosis for this admission?: YesPlan: send urine culture (4) CAD (coronary artery disease) Is this a current diagnosis for this admission?: YesPlan: elevated tropnin but no s/s of acute cad and due to ckd troponin leak (5) Diabetes mellitus Qualifiers: Diabetes mellitus type: type 2 Is this a current diagnosis for this admission?: YesPlan: ss with [facility] (6) CHF (congestive heart failure) Qualifiers: Congestive heart failure type: diastolic Congestive heart failure chronicity: chronic Qualified Code(s): I50.32 - Chronic diastolic ( congestive) heart failure Is this a current diagnosis for this admission?: YesPlan: give lasix 40 mg iv (8) Hypertension Is this a current diagnosis for this admission?: YesPlan: cont curr med - Time Time Spent: 30 to 50 Minutes Medications reviewed and adjusted accordingly: Yes Anticipated discharge: Home - Inpatient Certification Medical Necessity: Significant Comorbidiites Make Outpatient Treatment Too Risky , Need for IV Antibiotics Post Hospital Care: D/C Brewing Technician Documentation - Plan Summary Plan Summary: d/w pt and family about pt condition and admit
[2016-12-11] MEDS ORDERED: CEFTRIAXONE 1 GM/D5W RTU 50 ML IV SCH (18:00)
[2016-12-11] MEDS ORDERED: CEFEPIME HCL 2 GM in DEXTROSE 5%-WATER 50 ML IV ONE (18:30)
[2016-12-11] MEDS: IPRATROPIUM/ALBUTEROL 0.5-2.5 MG/3 ML AMPUL NEB SCH (20:22)
[2016-12-11] MEDS ORDERED: LUBIPROSTONE 24 MCG CAPSULE PO PRN (20:48)
[2016-12-11] MEDS ORDERED: METHOCARBAMOL 500 MG TABLET PO PRN (20:48)
--- NOTE | 2016-12-11 21:52 | EKG REPORT ---
SEVERITY:- ABNORMAL ECG - SINUS RHYTHM FIRST DEGREE AV BLOCK PROBABLE LEFT ATRIAL ABNORMALITY BORDERLINE R WAVE PROGRESSION, ANTERIOR LEADS : Confirmed by: Rigo Herrera 11-Dec-2016 21:51:44
[2016-12-11] MEDS ORDERED: CEFEPIME 1 GM/D5W RTU 50 ML IV SCH (22:00)
[2016-12-11] MEDS ORDERED: CLONIDINE HCL 0.2 MG TABLET PO SCH (22:00)
[2016-12-11] MEDS ORDERED: DOCUSATE SODIUM 100 MG CAPSULE PO SCH (22:00)
[2016-12-11] MEDS ORDERED: ENOXAPARIN SODIUM INJ 30 MG/0.3 ML DISP.SYRIN SUBCUT ONE (23:00)
[2016-12-11] MEDS: CLONIDINE HCL 0.1 MG TABLET PO SCH (23:29)
[2016-12-11] MEDS: DOCUSATE SODIUM 100 MG CAPSULE PO SCH (23:29)
[2016-12-12] MEDS: IPRATROPIUM/ALBUTEROL 0.5-2.5 MG/3 ML AMPUL NEB SCH ×4 (02:06→20:11)
[2016-12-12 06:54] LABS: ABSOLUTE BASOPHILS # (AUTO) 0.1 10^3/uL (0.0-0.2); ABSOLUTE EOSINOPHILS # (AUTO) 0.2 10^3/uL (0.0-0.6); ABSOLUTE LYMPHOCYTES (AUTO) 0.8 10^3/uL (0.5-4.7); ABSOLUTE MONOCYTES (AUTO) 0.7 10^3/uL (0.1-1.4); ABSOLUTE NEUT (AUTO) 9.8 10^3/uL (1.7-8.2); BASOPHILS % (AUTO) 0.6 % (0-2); HEMATOCRIT 29.7 % (36.0-47.0); HEMOGLOBIN 9.8 g/dL (12.0-15.5); HGB HCT DIFFERENCE -0.3; LYMPHOCYTES % (AUTO) 6.5 % (13-45); MEAN CORPUSCULAR HEMOGLOBIN 33.2 pg (27.0-33.4); MEAN CORPUSCULAR HGB CONC 32.9 g/dL (32.0-36.0); MEAN CORPUSCULAR VOLUME 101 fl (80-97); MONOCYTES % (AUTO) 6.1 % (3-13); RED BLOOD COUNT 2.94 10^6/uL (3.72-5.28); RED CELL DISTRIBUTION WIDTH 14.5 % (11.5-14.0); SEGMENTED NEUTROPHILS % (AUTO) 84.8 % (42-78); WHITE BLOOD COUNT 11.5 10^3/uL (4.0-10.5)
[2016-12-12 07:08] LABS: ANION GAP 19 (5-19); BLOOD UREA NITROGEN 69 mg/dL (7-20); CALCIUM 9.1 mg/dL (8.4-10.2); CARBON DIOXIDE 16 mmol/L (22-30); CHLORIDE 100 mmol/L (98-107); CREATINE KINASE 62 U/L (30-135); CREATININE RESULT 8.45 mg/dL (0.52-1.25); GLUCOSE 108 mg/dL (75-110); MAGNESIUM 2.1 mg/dL (1.6-2.3); SODIUM 135.2 mmol/L (137-145)
[2016-12-12 07:22] LABS: CREATINE KINASE MB 2.62 ng/mL (<4.55); TROPONIN I 0.096 ng/mL
[2016-12-12 07:35] LABS: POTASSIUM 6.5 mmol/L (3.6-5.0)
[2016-12-12] MEDS ORDERED: EPOETIN ALFA 10,000 UNIT in SYRINGE, DISPOSABLE, 1 EACH IV PRN (09:00)
[2016-12-12] MEDS: ENOXAPARIN SODIUM INJ 30 MG/0.3 ML DISP.SYRIN SUBCUT SCH (09:08)
[2016-12-12] MEDS ORDERED: AZITHROMYCIN 250 MG TABLET PO SCH (10:00)
[2016-12-12] MEDS ORDERED: (PENDING PHARMACY ID) (Citalopram Hydrobromide [Celexa 10 Mg Tablet] 10 MG) PO SCH (10:00)
[2016-12-12] MEDS: CLONIDINE HCL 0.1 MG TABLET PO SCH ×2 (10:07→22:29)
--- NOTE | 2016-12-12 10:41 | PDOC PROGRESS REPORT ---
Subjective Progress Note for:: 12/12/16 Subjective:: Patient is currently doing and currently on the hemodialysis denied any chest denied any shortness of the breath and denied any abdominal pain no nausea no vomiting Physical Exam Vital Signs: Temp Pulse Resp BP Pulse Ox 97.8 F 83 18 189/42 H 98 12/12/16 03:46 12/12/16 08:58 12/12/16 08:58 12/12/16 03:46 12/12/16 08:58 Intake & Output 12/11/16 12/12/16 12/13/16 06:59 06:59 06:59 Intake Total 720 Balance 720 Weight 58.6 kg General appearance: PRESENT: no acute distress Head exam: PRESENT: normocephalic Eye exam: PRESENT: PERRLA Mouth exam: PRESENT: neck supple Respiratory exam: PRESENT: clear to auscultation irma. ABSENT: wheezes Cardiovascular exam: PRESENT: +S1, +S2 GI/Abdominal exam: PRESENT: normal bowel sounds, soft. ABSENT: tenderness Extremities exam: ABSENT: pedal edema Neurological exam: PRESENT: alert, awake, oriented to person, oriented to place Results Laboratory Results: 12/12/16 06:40 12/12/16 06:40 12/12/16 12/12/16 06:40 06:40 WBC 11.5 H RBC 2.94 L Hgb 9.8 L Hct 29.7 L MCV 101 H MCH 33.2 MCHC 32.9 RDW 14.5 H Plt Count 162 Seg Neutrophils % 84.8 H Lymphocytes % 6.5 L Monocytes % 6.1 Eosinophils % 2.0 Basophils % 0.6 Absolute Neutrophils 9.8 H Absolute Lymphocytes 0.8 Absolute Monocytes 0.7 Absolute Eosinophils 0.2 Absolute Basophils 0.1 Sodium 135.2 L Potassium 6.5 H* Chloride 100 Carbon Dioxide 16 L Anion Gap 19 BUN 69 H Creatinine 8.45 H Est GFR ( Amer) 5 L Est GFR (Non-Af Amer) 4 L Glucose 108 Calcium 9.1 Magnesium 2.1 12/12/16 12/12/16 06:40 06:40 Creatine Kinase 62 CK-MB (CK-2) 2.62 Troponin I 0.096 Impressions: Chest X-Ray 12/11/16 11:56 IMPRESSION: Cardiomegaly with mild pulmonary vascular congestion. On the current study there is some blunting of the costophrenic angles suggesting small bilateral pleural effusions. Other findings as noted above Assessment & Plan - Diagnosis (1) End stage renal disease on dialysis Is this a current diagnosis for this admission?: YesPlan: Currently on hemodialysis (2) Pneumonia Qualifiers: Pneumonia type: due to unspecified organism Laterality: right Lung location: lower lobe of lung Qualified Code(s): J18.1 - Lobar pneumonia, unspecified organism Is this a current diagnosis for this admission?: YesPlan: Continues to IV antibiotic (3) UTI (urinary tract infection) Qualifiers: Urinary tract infection type: site unspecified Hematuria presence: without hematuria Qualified Code(s): N39.0 - Urinary tract infection, site not specified Is this a current diagnosis for this admission?: YesPlan: Urine cultures show some gram-negative wait for the culture and sensitivity (4) CAD (coronary artery disease) Is this a current diagnosis for this admission?: YesPlan: elevated tropnin but no s/s of acute cad and due to ckd troponin leak (5) Diabetes mellitus Qualifiers: Diabetes mellitus type: type 2 Is this a current diagnosis for this admission?: YesPlan: ss with [facility] (6) CHF (congestive heart failure) Qualifiers: Congestive heart failure type: diastolic Congestive heart failure chronicity: chronic Qualified Code(s): I50.32 - Chronic diastolic ( congestive) heart failure Is this a current diagnosis for this admission?: YesPlan: give lasix 40 mg iv (7) Weakness generalized Plan: Possible from the UTI and sepsis (8) Hypertension Is this a current diagnosis for this admission?: YesPlan: Improving - Time Time Spent with patient: 15-24 minutes Medications reviewed and adjusted accordingly: Yes Anticipated discharge: Home Within: within 48 hours - Inpatient Certification Medical Necessity: Need Close Monitoring Due to Risk of Patient Decompensation, Need for IV Antibiotics - Plan Summary Plan Summary: Continues to IV and follow with the nephrology
[2016-12-12] MEDS: AMLODIPINE BESYLATE 10 MG TABLET PO SCH (12:01)
[2016-12-12] MEDS: DOCUSATE SODIUM 100 MG CAPSULE PO SCH ×2 (12:01→22:29)
[2016-12-12] MEDS: ALLOPURINOL 100 MG TABLET PO SCH (12:01)
[2016-12-12] MEDS: CITALOPRAM HYDROBROMIDE 20 MG TABLET PO SCH (12:02)
[2016-12-12] MEDS: FUROSEMIDE 40 MG TABLET PO SCH ×2 (12:02→17:51)
[2016-12-12] MEDS: HYDRALAZINE HCL 50 MG TABLET PO SCH ×3 (12:02→17:51)
[2016-12-12] MEDS: LANSOPRAZOLE 30 MG TAB.RAP.DR PO SCH (12:03)
--- NOTE | 2016-12-12 14:40 | Physician Advisory Note ---
Physician Advisor ProgressNote .: Pursuant to the plan for [facility], I have reviewed the medical record for this patient. Physician Advisor Statement: Nice documentation of chronic diastolic CHF, DM type 2, ESRD on HD. Possible documentation opportunities if attending agrees: 1. "RLL Pneumonia, possibly gram-negative type given DM pt on Hemodialysis" 2. "mild hyponatremia, possibly due to intravascular volume overload due to missing HD" 3. "small bilateral pleural effusions" 4. "anemia of chronic kidney dz" 5. Medical necessity - please document concerns such as those below under "Status" with which you agree, to support decision for Inpatient status. As always, if concerned about any unstable VS or abnormal labs, please comment on them & note what doing about them, & please document each day the potential clinical problems you are concerned could occur if pt not kept in hospital for tx at this time. Discussion: 86yo female w/ chronic co-morbidities including ESRD on HD, chr diastolic CHF, CAD w/CO per EKG, HTN, DM-2, COPD, recent pelvic fx - presented late /13 AM to ED w/cough, weakness x4days, SOB, post-tussive vomiting. Had last HD 1 day early & missed that AM's HD. Daughter concerned pt unsafe at home due to inability to walk from the degree of weakness. (+) T98.7, HR85, R20, BP 184/45.scattered bilat rhonchi per ED drSoo WBC 12.5, HGb 9.9 w/high MCV/RDW, Na 134.1, K 6.1, bicarb 17, Cr 8.19, CXR w/vasc congestion vs infiltrate, possible small bilat pl effusions. No acute EKG changes. ED gave meds including Lasix, Kayexalate. Attending ordered IV CEfepime, IV vanc, & po Levaquin, Lasix IV x1 then po bid, hydralazine IV prn Duonebs q6h, I/O'ss, daily wts, nephrol consult, tele, specialty bed, sputum cx, BCs. Status: 86yo female with multiple concerning co-morbidities came in w/acute pneumonia + acute metabolic acidosis/hyperkalemia/azotemia due to missing hemodialysis. So weak from this acute illness that she was unable to walk (as she normally does based on description). Thai Masseur ordered HepB testing, AM labs for 12/13. Although she was initially appearing hemodynamicaly stable - and H&P doesn't explicitly document reasons pt was expected, from time of admission, to require at least 2MNs, after 1MN - she still has leukocytosis with only small improvement from >24hrs of abx, and ur cx is growing GNRs. With her ESRD/HD tx, & DM-2, as well as underlying COPD, GNR infxn in lungs is also quite possible, & these organisms are frequently [id number] these days. She still has hypontremia present, & hyperkalemia, & acute metabolic acidosis. She may quickly worsen again if she is inadequately covered by abx outpt, risking further organ system failure. Ur Cx sensitivities, sputum cx, & BC results, are pending. Continued tx & close monitoring in inpatient hospital setting for a 2nd MN appears medically reasonable & necessary to protect pt's health, safety, & medical condition. Appropriate for Inpt status. Thanks for your help with documentation accuracy/specificity improvement! Mary Donohue MD [facility] Physician Advisor, Fellow of Hospital Medicine
[2016-12-12] MEDS: HYDRALAZINE HCL INJ/PF 20 MG/1 ML SDV IV PRN ×2 (16:24→19:57)
[2016-12-12] MEDS: SEVELAMER HCL 400 MG TABLET PO SCH (16:24)
--- NOTE | 2016-12-12 18:16 | PDOC CONSULTATION ---
Consultation Consult Date: 12/12/16 Consult reason:: Acute hemodialysis in the setting of congestive heart failure and hyperkalemia. History of Present Illness Admission Date/PCP: 12/11/16 17:47 MC GONZALEZ MD History of Present Illness: Mrs. Viveros is an 86 years old lady of [place] extraction was brought to the ER with complaints of progressive shortness of breath generalized weakness. She is a ESRD patient in the background of diabetes hypertension with other comorbidities which includes diastolic heart failure uterine cancer CAD. Evaluations revealed that she was in no early heart failure and the potassium was about 6. She was admitted and treated immediately with appropriate anti- potassium measures and admitted for dialysis. Patient denied any history of chest pains no history of any fever or chills. She has a dry cough. No history of generalized myalgia. She is presently undergoing dialysis and has no specific complaints. She is quite anxious. Past Medical History Cardiac Medical History: Reports: Coronary Artery Disease, Hyperlipidemia, Hypertension-primary, Myocardial Infarction - PER EKG READING ON 03/25/14 Pulmonary Medical History: Reports: Chronic Obstructive Pulmonary Disease (COPD) , Pneumonia - Hx of 12/2014 Denies: Asthma, Bronchitis, Tuberculosis Neurological Medical History: Denies: Seizures Endocrine Medical History: Reports: Diabetes Mellitus Type 2 Renal/ Medical History: Reports: End Stage Renal Disease Malignancy Medical History: Reports: Other - Uterine cancer GI Medical History: Reports: Gastroesophageal Reflux Disease Musculoskeltal Medical History: Reports: Arthritis Psychiatric Medical History: Denies: Depression Hematology Medical History: Reports Anemia of Chronic Kidney Disease Past Surgical History Past Surgical History: Reports: Hysterectomy, Orthopedic Surgery - left knee, Vascular Surgery Social History Smoking Status: Never Smoker Frequency of Alcohol Use: None Hx Recreational Drug Use: No Drugs: None Hx Prescription Drug Abuse: No - Advance Directive Resuscitation Status: Full Code Family History Parental Family History Reviewed: Yes - Negative for ESRD Children Family History Reviewed: No Sibling(s) Family History Reviewed.: No Medication/Allergy Home Medications: Allopurinol [Zyloprim 100 mg Tablet] 100 mg PO DAILY 12/11/16 Amlodipine Besylate [Norvasc 10 mg Tablet] 10 mg PO DAILY 12/11/16 Citalopram Hydrobromide [Celexa 10 mg Tablet] 10 mg PO DAILY 12/11/16 Clonidine HCl [Catapres 0.1 mg Tablet] 0.1 mg PO Q12 12/11/16 Clonidine HCl [Catapres 0.2 mg Tablet] 0.2 mg PO QHS 12/11/16 Docusate Sodium [Dok] 100 mg PO Q12 12/11/16 Furosemide [Lasix] 40 mg PO BID 12/11/16 Hydralazine HCl [Apresoline 50 mg Tablet] 100 mg PO TID 12/11/16 Lubiprostone [Amitiza 24 Mcg Capsule] 24 mcg PO Q12HP PRN 12/11/16 Methocarbamol [Robaxin 500 mg Tablet] 500 mg PO Q8HP PRN 12/11/16 Omeprazole 40 mg PO DAILY 12/11/16 Oxycodone HCl [Oxy-Ir 5 mg Tablet] 5 mg PO BIDP PRN 12/11/16 Sevelamer HCl [Renagel] 2,400 mg PO MEALS 12/11/16 Aspirin [Adult Low Dose Aspirin EC] 81 mg PO DAILY 12/12/16 Benzonatate 100 mg PO TID 12/12/16 Ipratropium/Albuterol Sulfate [Iprat-Albut 0.5-3(2.5) Mg/3 Ml] 3 ml IH Q8 Polyethylene Glycol 3350 [Miralax Powder 17 gm/Packet] 1 packet PO DAILY Polyvinyl Alcohol/Povidone/Pf [Refresh Classic Eye Drops] 1 each OP DAILY Allergies/Adverse Reactions: rosuvastatin calcium [From Crestor] Allergy (Unknown, Verified 12/11/16 19:13) "Symptoms like the flu" Review of Systems Review of Systems: Constitutional: PRESENT: as per HPI. ABSENT: chills, fever(s), headache(s), weight gain, weight loss Eyes: ABSENT: visual disturbances Ears: ABSENT: hearing changes Cardiovascular: ABSENT: chest pain, edema, orthropnea, palpitations Respiratory: ABSENT: cough, hemoptysis Gastrointestinal: ABSENT: abdominal pain, constipation, diarrhea, hematemesis, hematochezia, nausea, vomiting Genitourinary: ABSENT: dysuria, hematuria Musculoskeletal: ABSENT: joint swelling Integumentary: ABSENT: rash, wounds Neurological: ABSENT: abnormal gait, abnormal speech, confusion, dizziness, focal weakness, syncope Psychiatric: ABSENT: Depression, homicidal ideation, suicidal ideation Endocrine: ABSENT: cold intolerance, heat intolerance, menstrual abnormalities, polydipsia, polyuria Hematologic/Lymphatic: ABSENT: easy bleeding, easy bruising, lymphadenopathy Physical Exam Vital Signs: Temp Pulse Resp BP Pulse Ox 98.9 F 87 20 178/46 H 97 12/12/16 16:12 12/12/16 16:12 12/12/16 16:12 12/12/16 16:12 12/12/16 16:12 Intake & Output 12/11/16 12/12/16 12/13/16 06:59 06:59 06:59 Intake Total 720 0 Output Total 800 Balance 720 -800 Weight 58.6 kg General appearance: PRESENT: mild distress Eye exam: PRESENT: conjunctiva pink, EOMI, PERRLA. ABSENT: nystagmus, periorbital swelling, scleral icterus Ear exam: PRESENT: normal external ear exam Mouth exam: PRESENT: moist, neck supple Neck exam: ABSENT: meningismus, tenderness, thyromegaly, tracheal deviation Respiratory exam: PRESENT: clear to auscultation irma, crackles, symmetrical, tachypnea. ABSENT: rhonchi, stridor Cardiovascular exam: PRESENT: +S1, +S2 GI/Abdominal exam: PRESENT: soft. ABSENT: distended, firm, guarding, organomegaly, tenderness Extremities exam: PRESENT: +1 edema Neurological exam: PRESENT: alert, awake, oriented to person, oriented to place , oriented to time Skin exam: PRESENT: dry. ABSENT: cyanosis, erythema, normal color, rash, vesicles Results Laboratory Results: 12/12/16 06:40 12/12/16 06:40 12/12/16 12/12/16 06:40 06:40 WBC 11.5 H RBC 2.94 L Hgb 9.8 L Hct 29.7 L MCV 101 H MCH 33.2 MCHC 32.9 RDW 14.5 H Plt Count 162 Seg Neutrophils % 84.8 H Lymphocytes % 6.5 L Monocytes % 6.1 Eosinophils % 2.0 Basophils % 0.6 Absolute Neutrophils 9.8 H Absolute Lymphocytes 0.8 Absolute Monocytes 0.7 Absolute Eosinophils 0.2 Absolute Basophils 0.1 Sodium 135.2 L Potassium 6.5 H* Chloride 100 Carbon Dioxide 16 L Anion Gap 19 BUN 69 H Creatinine 8.45 H Est GFR ( Amer) 5 L Est GFR (Non-Af Amer) 4 L Glucose 108 Calcium 9.1 Magnesium 2.1 12/12/16 12/12/16 06:40 06:40 Creatine Kinase 62 CK-MB (CK-2) 2.62 Troponin I 0.096 Impressions: Chest X-Ray 12/11/16 11:56 IMPRESSION: Cardiomegaly with mild pulmonary vascular congestion. On the current study there is some blunting of the costophrenic angles suggesting small bilateral pleural effusions. Other findings as noted above Assessment & Plan - Diagnosis (1) Anemia due to chronic kidney disease treated with erythropoietin Plan: We will adjust erythropoietin. (2) End stage renal disease on dialysis Is this a current diagnosis for this admission?: YesPlan: Congestive heart failure as well as hyperkalemia. Orders have been placed and patient undergoing dialysis without any issues. Orders were discussed with the treating nurse Liliane. Will try to extract at least 1-2 L of fluid. Patient on a 2K bath this should correct her hyperkalemia. Discussed with patient about dietary modifications. (3) Diabetes mellitus Qualifiers: Diabetes mellitus type: type 2 Is this a current diagnosis for this admission?: YesPlan: Advised on diet controlled. (4) CHF (congestive heart failure) Qualifiers: Congestive heart failure type: diastolic Congestive heart failure chronicity: chronic Qualified Code(s): I50.32 - Chronic diastolic ( congestive) heart failure Is this a current diagnosis for this admission?: YesPlan: Respond to dialysis. Discussed dietary modifications and compliance with medications. She should be on p.o. Lasix. (6) Hypertension Is this a current diagnosis for this admission?: YesPlan: Monitor postdialysis
[2016-12-12] MEDS: ACETAMINOPHEN 325 MG TABLET PO PRN (19:52)
[2016-12-12] MEDS ORDERED: LORAZEPAM 0.5 MG TABLET PO ONE (20:00)
[2016-12-12] MEDS ORDERED: POLYETHYLENE GLYCOL 3350 POWDER 17 GM/1 PACKET PO ONE (21:00)
[2016-12-13] MEDS: IPRATROPIUM/ALBUTEROL 0.5-2.5 MG/3 ML AMPUL NEB SCH ×4 (02:01→19:54)
[2016-12-13 06:37] LABS: ABSOLUTE EOSINOPHILS # (AUTO) 0.1 10^3/uL (0.0-0.6); ABSOLUTE LYMPHOCYTES (AUTO) 0.6 10^3/uL (0.5-4.7); ABSOLUTE MONOCYTES (AUTO) 0.8 10^3/uL (0.1-1.4); ABSOLUTE NEUT (AUTO) 5.9 10^3/uL (1.7-8.2); BASOPHILS % (AUTO) 0.5 % (0-2); EOSINOPHILS % (AUTO) 0.9 % (0-6); HEMATOCRIT 25.7 % (36.0-47.0); HEMOGLOBIN 8.7 g/dL (12.0-15.5); HGB HCT DIFFERENCE 0.4; LYMPHOCYTES % (AUTO) 8.6 % (13-45); MEAN CORPUSCULAR HEMOGLOBIN 33.2 pg (27.0-33.4); MEAN CORPUSCULAR HGB CONC 33.7 g/dL (32.0-36.0); MEAN CORPUSCULAR VOLUME 99 fl (80-97); MONOCYTES % (AUTO) 10.5 % (3-13); RED CELL DISTRIBUTION WIDTH 14.3 % (11.5-14.0); SEGMENTED NEUTROPHILS % (AUTO) 79.5 % (42-78); WHITE BLOOD COUNT 7.4 10^3/uL (4.0-10.5)
[2016-12-13 07:07] LABS: CALCIUM 8.5 mg/dL (8.4-10.2); CHLORIDE 97 mmol/L (98-107); CREATININE RESULT 4.37 mg/dL (0.52-1.25); GLUCOSE 105 mg/dL (75-110)
[2016-12-13 07:15] LABS: ANION GAP 12 (5-19)
[2016-12-13 07:24] LABS: BLOOD UREA NITROGEN 26 mg/dL (7-20); CARBON DIOXIDE 30 mmol/L (22-30); POTASSIUM 3.8 mmol/L (3.6-5.0)
[2016-12-13] MEDS ORDERED: EPOETIN ALFA INJ 20000 UNIT/1 ML VIAL (RENAL) IV PRN (09:51)
[2016-12-13] MEDS ORDERED: HEPARIN SOD (PORCINE) 1,000 UNIT/ML 10 ML VIAL IV PRN (09:51)
[2016-12-13] MEDS ORDERED: DEXTROSE 50%-WATER 25 GM/50 ML DISP.SYRIN IV PRN (09:52)
[2016-12-13] MEDS ORDERED: CLONIDINE HCL 0.1 MG TABLET PO ONE (11:30)
[2016-12-13] MEDS: ALLOPURINOL 100 MG TABLET PO SCH (13:19)
[2016-12-13] MEDS: HYDRALAZINE HCL 50 MG TABLET PO SCH ×2 (13:20→21:24)
[2016-12-13] MEDS: AMLODIPINE BESYLATE 10 MG TABLET PO SCH (13:20)
[2016-12-13] MEDS: CITALOPRAM HYDROBROMIDE 20 MG TABLET PO SCH (13:21)
[2016-12-13] MEDS: FUROSEMIDE 40 MG TABLET PO SCH ×2 (13:21→17:39)
[2016-12-13] MEDS: DOCUSATE SODIUM 100 MG CAPSULE PO SCH ×2 (13:21→21:24)
[2016-12-13] MEDS: SEVELAMER HCL 400 MG TABLET PO SCH ×2 (13:22→17:39)
[2016-12-13] MEDS: LANSOPRAZOLE 30 MG TAB.RAP.DR PO SCH (13:22)
[2016-12-13] MEDS: POLYETHYLENE GLYCOL 3350 POWDER 17 GM/1 PACKET PO SCH (13:28)
[2016-12-13] MEDS: ENOXAPARIN SODIUM INJ 30 MG/0.3 ML DISP.SYRIN SUBCUT SCH (13:29)
--- NOTE | 2016-12-13 13:46 | PDOC PROGRESS REPORT ---
Subjective Progress Note for:: 12/13/16 Subjective:: Patient is doing well no fever no chills no chest pain and no shortness of the breath. Patient scheduled for dialysis today. Patient urine culture so the E. coli. Physical Exam Vital Signs: Temp Pulse Resp BP Pulse Ox 99.0 F 84 20 161/54 H 100 12/13/16 07:17 12/13/16 07:46 12/13/16 07:46 12/13/16 07:17 12/13/16 07:46 Intake & Output 12/12/16 12/13/16 12/14/16 06:59 06:59 06:59 Intake Total 720 240 Output Total 850 Balance 720 -610 Weight 58.6 kg General appearance: PRESENT: no acute distress Head exam: PRESENT: normocephalic Eye exam: PRESENT: PERRLA Mouth exam: PRESENT: neck supple Respiratory exam: PRESENT: clear to auscultation irma Cardiovascular exam: PRESENT: +S1, +S2 GI/Abdominal exam: PRESENT: normal bowel sounds, soft Extremities exam: ABSENT: pedal edema Neurological exam: PRESENT: alert, awake, oriented to person, oriented to place Psychiatric exam: PRESENT: anxious Results Laboratory Results: 12/13/16 06:21 12/13/16 06:21 12/13/16 12/13/16 06:21 06:21 WBC 7.4 RBC 2.60 L Hgb 8.7 L Hct 25.7 L MCV 99 H MCH 33.2 MCHC 33.7 RDW 14.3 H Plt Count 157 Seg Neutrophils % 79.5 H Lymphocytes % 8.6 L Monocytes % 10.5 Eosinophils % 0.9 Basophils % 0.5 Absolute Neutrophils 5.9 Absolute Lymphocytes 0.6 Absolute Monocytes 0.8 Absolute Eosinophils 0.1 Absolute Basophils 0.0 Sodium 139.0 Potassium 3.8 D Chloride 97 L Carbon Dioxide 30 D Anion Gap 12 BUN 26 H D Creatinine 4.37 H Est GFR ( Amer) 12 L Est GFR (Non-Af Amer) 10 L Glucose 105 Calcium 8.5 12/12/16 12/12/16 06:40 06:40 Creatine Kinase 62 CK-MB (CK-2) 2.62 Troponin I 0.096 Impressions: Chest X-Ray 12/13/16 07:00 IMPRESSION: Cardiomegaly. Small bilateral pleural effusions are identified and I cannot exclude some associated atelectasis or infiltrate in the lung bases. Other findings as noted above Assessment & Plan - Diagnosis (1) End stage renal disease on dialysis Is this a current diagnosis for this admission?: YesPlan: Currently on hemodialysis (2) Pneumonia Qualifiers: Pneumonia type: due to unspecified organism Laterality: right Lung location: lower lobe of lung Qualified Code(s): J18.1 - Lobar pneumonia, unspecified organism Is this a current diagnosis for this admission?: YesPlan: Continues to Levaquin and Rocephin (3) UTI (urinary tract infection) Qualifiers: Urinary tract infection type: site unspecified Hematuria presence: without hematuria Qualified Code(s): N39.0 - Urinary tract infection, site not specified Is this a current diagnosis for this admission?: YesPlan: Start the Rocephin for the sensitivity (4) CAD (coronary artery disease) Is this a current diagnosis for this admission?: YesPlan: Stable (5) Diabetes mellitus Qualifiers: Diabetes mellitus type: type 2 Is this a current diagnosis for this admission?: YesPlan: ss with [facility] (6) CHF (congestive heart failure) Qualifiers: Congestive heart failure type: diastolic Congestive heart failure chronicity: chronic Qualified Code(s): I50.32 - Chronic diastolic ( congestive) heart failure Is this a current diagnosis for this admission?: YesPlan: give lasix 40 mg iv (8) Hypertension Is this a current diagnosis for this admission?: Yes - Time Time Spent with patient: 15-24 minutes Medications reviewed and adjusted accordingly: Yes Anticipated discharge: Home Within: within 24 hours - Inpatient Certification Medical Necessity: Need for IV Antibiotics 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
[2016-12-13] MEDS ORDERED: CEFTRIAXONE 1 GM/D5W RTU 1 GM/50 ML RTUPB IV ONE (16:00)
--- NOTE | 2016-12-13 17:07 | PDOC PROGRESS REPORT ---
Subjective Progress Note for:: 12/13/16 Subjective:: Patient is seen on dialysis this morning. Overall she is looking better. However she seemed a little bit fidgety. I did stat Accu-Chek and it came back up to 104. I have ordered an amp of D50 and will see the response. She denies any history of chest pain shortness of breath no history of nausea vomiting. She is being treated for UTI with Levaquin. Her daughter was at the bedside and we discussed the case at length. Dialysis orders were discussed with the treating nurse Physical Exam Vital Signs: Temp Pulse Resp BP Pulse Ox 99.0 F 95 14 161/54 H 94 12/13/16 07:17 12/13/16 14:00 12/13/16 14:00 12/13/16 07:17 12/13/16 14:00 Intake & Output 12/12/16 12/13/16 12/14/16 06:59 06:59 06:59 Intake Total 720 240 Output Total 850 2000 Balance 720 -610 -2000 Weight 58.6 kg General appearance: PRESENT: no acute distress Respiratory exam: PRESENT: clear to auscultation irma. ABSENT: crackles, rhonchi Cardiovascular exam: PRESENT: +S1, +S2 GI/Abdominal exam: PRESENT: soft. ABSENT: distended, firm, guarding, organomegaly, tenderness Neurological exam: PRESENT: awake, oriented to person, oriented to place, oriented to time. ABSENT: aphasic Results Laboratory Results: 12/13/16 06:21 12/13/16 06:21 12/13/16 12/13/16 06:21 06:21 WBC 7.4 RBC 2.60 L Hgb 8.7 L Hct 25.7 L MCV 99 H MCH 33.2 MCHC 33.7 RDW 14.3 H Plt Count 157 Seg Neutrophils % 79.5 H Lymphocytes % 8.6 L Monocytes % 10.5 Eosinophils % 0.9 Basophils % 0.5 Absolute Neutrophils 5.9 Absolute Lymphocytes 0.6 Absolute Monocytes 0.8 Absolute Eosinophils 0.1 Absolute Basophils 0.0 Sodium 139.0 Potassium 3.8 D Chloride 97 L Carbon Dioxide 30 D Anion Gap 12 BUN 26 H D Creatinine 4.37 H Est GFR ( Amer) 12 L Est GFR (Non-Af Amer) 10 L Glucose 105 Calcium 8.5 12/12/16 12/12/16 06:40 06:40 Creatine Kinase 62 CK-MB (CK-2) 2.62 Troponin I 0.096 Impressions: Chest X-Ray 12/13/16 07:00 IMPRESSION: Cardiomegaly. Small bilateral pleural effusions are identified and I cannot exclude some associated atelectasis or infiltrate in the lung bases. Other findings as noted above Assessment & Plan - Diagnosis (1) Anemia due to chronic kidney disease treated with erythropoietin Plan: We will adjust erythropoietin. Presently stable numbers. (2) End stage renal disease on dialysis Is this a current diagnosis for this admission?: YesPlan: Congestive heart failure and hyperkalemia Has improved with yesterday's dialysis. We will see how she responds to today as well. Orders were discussed with the treating nurse Liliane. We will try to extract 1-2 L as tolerated. Even though she was initially a bit fidgety she seems to have become more stable after I gave her D50 in spite of the blood sugars being 104. Orders have been placed and patient undergoing dialysis without any issues. Orders were discussed with the treating nurse Liliane. (3) Diabetes mellitus Qualifiers: Diabetes mellitus type: type 2 Is this a current diagnosis for this admission?: Yes (4) CHF (congestive heart failure) Qualifiers: Congestive heart failure type: diastolic Congestive heart failure chronicity: chronic Qualified Code(s): I50.32 - Chronic diastolic ( congestive) heart failure Is this a current diagnosis for this admission?: YesPlan: Has responded well to dialysis. Discussed dietary modifications and compliance with medications. She should be on p.o. Lasix. (6) Hypertension Is this a current diagnosis for this admission?: Yes (7) UTI (urinary tract infection) Qualifiers: Urinary tract infection type: site unspecified Hematuria presence: without hematuria Qualified Code(s): N39.0 - Urinary tract infection, site not specified Is this a current diagnosis for this admission?: YesPlan: On Levaquin
[2016-12-13] MEDS ORDERED: LEVOFLOXACIN 250 MG TABLET PO SCH (18:00)
[2016-12-13] MEDS: ACETAMINOPHEN 325 MG TABLET PO PRN (18:55)
[2016-12-13] MEDS ORDERED: CLONIDINE HCL 0.1 MG TABLET PO SCH (22:00)
[2016-12-14] MEDS: IPRATROPIUM/ALBUTEROL 0.5-2.5 MG/3 ML AMPUL NEB SCH ×2 (02:01→07:51)
[2016-12-14] MEDS: HYDRALAZINE HCL 50 MG TABLET PO SCH (05:42)
[2016-12-14 06:41] LABS: FOLATE 9.11 ng/mL (>2.76)
[2016-12-14 07:00] LABS: HEMOGLOBIN 9.8 g/dL (12.0-15.5); HGB HCT DIFFERENCE 0.4; MEAN CORPUSCULAR HEMOGLOBIN 33.8 pg (27.0-33.4); MEAN CORPUSCULAR HGB CONC 33.8 g/dL (32.0-36.0); MEAN CORPUSCULAR VOLUME 100 fl (80-97); WHITE BLOOD COUNT 5.7 10^3/uL (4.0-10.5)
[2016-12-14] MEDS: ENOXAPARIN SODIUM INJ 30 MG/0.3 ML DISP.SYRIN SUBCUT SCH (08:24)
[2016-12-14] MEDS: SEVELAMER HCL 400 MG TABLET PO SCH (08:25)
[2016-12-14] MEDS: LANSOPRAZOLE 30 MG TAB.RAP.DR PO SCH (09:37)
[2016-12-14] MEDS: FUROSEMIDE 40 MG TABLET PO SCH (09:37)
[2016-12-14] MEDS: CITALOPRAM HYDROBROMIDE 20 MG TABLET PO SCH (09:37)
[2016-12-14] MEDS: POLYETHYLENE GLYCOL 3350 POWDER 17 GM/1 PACKET PO SCH (09:37)
[2016-12-14] MEDS: ALLOPURINOL 100 MG TABLET PO SCH (09:38)
[2016-12-14] MEDS: AMLODIPINE BESYLATE 10 MG TABLET PO SCH (09:38)
[2016-12-14] MEDS: DOCUSATE SODIUM 100 MG CAPSULE PO SCH (09:38)
[2016-12-14] MEDS ORDERED: CLONIDINE HCL 0.1 MG TABLET PO SCH (10:00)
[2016-12-14 12:14] VITALS: BP 184/45
--- NOTE | 2016-12-14 17:11 | PDOC DISCHARGE SUMMARY ---
General - Admit/Disc Date/PCP Admission Date/Primary Care Provider: 12/11/16 17:47 [facility] GONZALEZ MD Discharge Date: 12/14/16 - Discharge Diagnosis (1) End stage renal disease on dialysis Is this a current diagnosis for this admission?: YesSummary: Currently on hemodialysis (2) Pneumonia Is this a current diagnosis for this admission?: YesSummary: Continues to Levaquin (3) UTI (urinary tract infection) Is this a current diagnosis for this admission?: YesSummary: E. coliContinues the Keflex (4) CAD (coronary artery disease) Is this a current diagnosis for this admission?: YesSummary: Stable (5) Diabetes mellitus Is this a current diagnosis for this admission?: YesSummary: Continues the current medication (6) CHF (congestive heart failure) Is this a current diagnosis for this admission?: YesSummary: Stable (7) Weakness generalized Summary: Most likely from the infections is all improving arrange for home physical therapy (8) Hypertension Is this a current diagnosis for this admission?: YesSummary: IMPROVING currently stable - Additional Information Resuscitation Status: Full Code Discharge Activity: Activity As Tolerated Home Medications: Allopurinol [Zyloprim 100 mg Tablet] 100 mg PO DAILY 12/11/16 Amlodipine Besylate [Norvasc 10 mg Tablet] 10 mg PO DAILY 12/11/16 Citalopram Hydrobromide [Celexa 10 mg Tablet] 10 mg PO DAILY 12/11/16 Clonidine HCl [Catapres 0.1 mg Tablet] 0.1 mg PO Q12 12/11/16 Clonidine HCl [Catapres 0.2 mg Tablet] 0.2 mg PO QHS 12/11/16 Docusate Sodium [Dok] 100 mg PO Q12 12/11/16 Furosemide [Lasix] 40 mg PO BID 12/11/16 Hydralazine HCl [Apresoline 50 mg Tablet] 100 mg PO TID 12/11/16 Lubiprostone [Amitiza 24 Mcg Capsule] 24 mcg PO Q12HP PRN 12/11/16 Methocarbamol [Robaxin 500 mg Tablet] 500 mg PO Q8HP PRN 12/11/16 Omeprazole 40 mg PO DAILY 12/11/16 Oxycodone HCl [Oxy-Ir 5 mg Tablet] 5 mg PO BIDP PRN 12/11/16 Sevelamer HCl [Renagel] 2,400 mg PO MEALS 12/11/16 Aspirin [Adult Low Dose Aspirin EC] 81 mg PO DAILY 12/12/16 Benzonatate 100 mg PO TID 12/12/16 Ipratropium/Albuterol Sulfate [Iprat-Albut 0.5-3(2.5) mg/3 ml] 3 ml IH Q8 Polyethylene Glycol 3350 [Miralax Powder 17 gm/Packet] 1 packet PO DAILY Polyvinyl Alcohol/Povidone/Pf [Refresh Classic Eye Drops] 1 each OP DAILY Cephalexin Monohydrate [Keflex 500 mg Capsule] 500 mg PO BID #14 capsule Levofloxacin [Levaquin 250 mg Tablet] 250 mg PO DAILY #7 tablet 12/14/16 History of Present Illness History of Present Illness: DAVID FLETCHER is a 86 year old female pt came with c/o weakness and not feeling well since came from [place] pt aslo c/o cough and congstion and er pt wbc is elevated and cxr shows vasculer congetion vs infiltrate pt also miss appt for hd today pt potassium was 6.1 and d/w nephrology and give lasix and kaxlate and no ekg chage and hd in am Hospital Course Hospital Course: This is a 86-year-old female present in the emergency department with a not feeling well and some mild Congestions and the bronchitis and the patient's also found possible pneumonia and urinary tract infections and a vascular congestions from missing the dialysis and admitting in the hospital for further evaluation and give IV antibiotic. Patient's responds very well with IV antibiotic and responded very well with the dialysis and patients back to the baseline and patient is discharged home with the p.o. antibiotic. Discussed with the daughter about the patient's current conditions and arrange the home health and physical therapy and follow as outpatient in 1 week and continues follow-up with the nephrology as per schedule dialysis Physical Exam Vital Signs: Temp Pulse Resp BP Pulse Ox 98.1 F 62 16 184/45 H 99 12/14/16 11:33 12/14/16 11:33 12/14/16 11:33 12/14/16 11:33 12/14/16 11:33 Intake & Output 12/13/16 12/14/16 12/15/16 06:59 06:59 06:59 Intake Total 240 1501 Output Total 850 2000 Balance -610 -499 Weight 58.6 kg General appearance: PRESENT: no acute distress Eye exam: PRESENT: PERRLA Mouth exam: PRESENT: neck supple Respiratory exam: PRESENT: clear to auscultation irma Cardiovascular exam: PRESENT: +S1, +S2 GI/Abdominal exam: PRESENT: normal bowel sounds, soft Extremities exam: ABSENT: pedal edema Neurological exam: PRESENT: alert, awake, oriented to person, oriented to place Psychiatric exam: PRESENT: anxious Skin exam: PRESENT: dry Results Laboratory Results: 12/14/16 04:34 12/13/16 06:21 12/14/16 12/14/16 12/14/16 04:34 04:34 04:34 WBC 5.7 RBC 2.90 L Hgb 9.8 L Hct 29.0 L MCV 100 H MCH 33.8 H MCHC 33.8 RDW 14.0 Plt Count 180 Retic Count (auto) 1.40 Absolute Retic 0.042 Iron 64.4 TIBC 178 L % Saturation 36 Ferritin 713.00 H Vitamin B12 955.0 H Folate 9.11 12/12/16 12/12/16 06:40 06:40 Creatine Kinase 62 CK-MB (CK-2) 2.62 Troponin I 0.096 Impressions: Chest X-Ray 12/13/16 07:00 IMPRESSION: Cardiomegaly. Small bilateral pleural effusions are identified and I cannot exclude some associated atelectasis or infiltrate in the lung bases. Other findings as noted above Plan Time Spent: Less than 30 Minutes - Discussed with the daughter about the patient 's current conditions and discuss about the all the new medications and follow as outpatient
[2016-12-14] MEDS ORDERED: CEFTRIAXONE 1 GM/D5W RTU 1 GM/50 ML RTUPB IV SCH (18:00)
== END 2016-12-14 12:14 | disposition home health service (06) | DRG 291 ==
LOC: ER 11:43 → EH 17:47 → UNDOADMIN 19:30 → EH 19:30 → 3N 21:56
PROVIDERS: ADMIT Family Medicine; ATTEND Family Medicine
PROC: 5A1D60Z (ICD-10-PCS; principal; 2016-12-12)
DX: I13.2 Hypertensive heart and chronic kidney disease with heart failure and with stage 5 chronic kidney disease, or end stage renal disease (principal); N18.6 End stage renal disease; J18.9 Pneumonia, unspecified organism; I50.32 Chronic diastolic (congestive) heart failure; N39.0 Urinary tract infection, site not specified; I25.10 Atherosclerotic heart disease of native coronary artery without angina pectoris; E78.5 Hyperlipidemia, unspecified; E11.22 Type 2 diabetes mellitus with diabetic chronic kidney disease; E87.5 Hyperkalemia; D63.1 Anemia in chronic kidney disease; I25.2 Old myocardial infarction; Z99.2 Dependence on renal dialysis
CPT/HCPCS: 36415; 71010; 71020; 80048; 80053; 81001; 82550; 82553; 82607; 82728; 82746; 82962; 83540; 83550; 83690; 83735; 84466; 84484; 85025; 85027; 85045; 86317; 86706; 87040; 87086; 87088; 87186; 87340; 87804; 93005; 93010; 94640; 96365; 96367; 96375; 99285; J0360; J0692; J0696; J1644; J1650; J1940; J2405; J3370; J3490; J7620; Q4081

== ENCOUNTER 2016-12-25 10:11 | Emergency (ER) | payer MEDICARE, OTHER ==
[2016-12-25] MEDS ORDERED: ONDANSETRON ODT 4 MG TAB (6 TAB/DSPK) PO PRN ×2 (11:08→11:10)
--- NOTE | 2016-12-25 11:11 | ER Document Report ---
ED General - General Chief Complaint: Cough Stated Complaint: DIFFICULTY BREATHING TRAVEL OUTSIDE OF THE [place] IN LAST 30 DAYS: No - HPI Patient complains to provider of: cough difficulty breathing Notes: Patient coming in recent discharge from the hospital after having pneumonia scheduled for dialysis today at 11:00 for cough difficulty breathing generalized weakness. According to the daughter the patient's caregiver was unable to have the patient stand up today therefore EMS was called. Patient had an episode of coughing and vomiting prior to arrival. Upon arrival patient is alert has no complaints states that she is feeling better. No fevers no chills. Patient's vital signs are within normal limits. - Related Data Allergies/Adverse Reactions: rosuvastatin calcium [From Crestor] Allergy (Unknown, Verified 12/11/16 19:13) "Symptoms like the flu" Past Medical History - Social History Smoking Status: Unknown if Ever Smoked Family History: Reviewed & Not Pertinent - Past Medical History Cardiac Medical History: Reports: Hx Congestive Heart Failure, Hx Coronary Artery Disease, Hx Heart Attack - PER EKG READING ON 03/25/14, Hx Hypercholesterolemia, Hx Hypertension Pulmonary Medical History: Reports: Hx COPD, Hx Pneumonia - Hx of 12/2014 Denies: Hx Asthma, Hx Bronchitis, Hx Tuberculosis Neurological Medical History: Denies: Hx Cerebrovascular Accident, Hx Seizures Endocrine Medical History: Reports: Hx Diabetes Mellitus Type 2 Renal/ Medical History: Reports: Hx End Stage Renal Disease GI Medical History: Reports: Hx Gastroesophageal Reflux Disease Musculoskeltal Medical History: Reports Hx Arthritis Psychiatric Medical History: Denies: Hx Depression Traumatic Medical History: Reports: Hx Fractures - RECENT PELVIS Fx Past Surgical History: Reports: Hx Hysterectomy, Hx Orthopedic Surgery - left knee, Hx Vascular Surgery - Immunizations Hx Diphtheria, Pertussis, Tetanus Vaccination: Yes Hx Pneumococcal Vaccination: 07/29/16 Review of Systems - Review of Systems Constitutional: Weakness EENT: No symptoms reported Cardiovascular: No symptoms reported Respiratory: Short of breath Gastrointestinal: No symptoms reported Genitourinary: No symptoms reported Female Genitourinary: No symptoms reported Musculoskeletal: No symptoms reported Skin: No symptoms reported Hematologic/Lymphatic: No symptoms reported Neurological/Psychological: No symptoms reported -: Yes All other systems reviewed and negative Physical Exam - Vital signs Vitals: Temp Pulse Resp BP Pulse Ox 98.3 F 77 16 173/48 H 96 12/25/16 10:45 12/25/16 10:45 12/25/16 10:45 12/25/16 10:45 12/25/16 10:45 Interpretation: Normal - General General appearance: Appears well, Alert - HEENT Head: Normocephalic, Atraumatic Eyes: Normal Pupils: PERRL - Respiratory Respiratory status: No respiratory distress Chest status: Nontender Breath sounds: Rales Chest palpation: Normal - Cardiovascular Rhythm: Regular Heart sounds: Normal auscultation Murmur: No - Abdominal Inspection: Normal Distension: No distension Bowel sounds: Normal Tenderness: Nontender Organomegaly: No organomegaly - Back Back: Normal, Nontender - Extremities General upper extremity: Normal inspection, Nontender, Normal color, Normal ROM , Normal temperature, Other - AV fistula left upper extremity with palpable thrill General lower extremity: Normal inspection, Nontender, Normal color, Normal ROM , Normal temperature, Normal weight bearing. No: Carlos Alberto's sign - Neurological Neuro grossly intact: Yes Cognition: Normal Orientation: AAOx4 Neptali Coma Scale Eye Opening: Spontaneous [place] Coma Scale Verbal: Oriented Neptali Coma Scale Motor: Obeys Commands Neptali Coma Scale Total: 15 Speech: Normal Motor strength normal: LUE, RUE, LLE, RLE Sensory: Normal - Psychological Associated symptoms: Normal affect, Normal mood - Skin Skin Temperature: Warm Skin Moisture: Dry Skin Color: Normal Course - Re-evaluation Re-evalutation: 12/25/16 14:46 EKG showed no acute pathology. The x-ray shows mild fluid overload. Explained this to the family at bedside. Otherwise patient has normal vital signs doesn' t acute distress offered to obtain lab work otherwise patient could be safely discharged to go to her dialysis. Family agrees be taking the patient directly to dialysis will forego lab work at this time is that lab work will be performed at dialysis Center. I later found patient PCP discuss case Dr. Gonzalez is unaware - Vital Signs Vital signs: Temp Pulse Resp BP Pulse Ox 98.3 F 77 16 173/48 H 96 12/25/16 10:45 12/25/16 10:45 12/25/16 10:45 12/25/16 10:45 12/25/16 10:45 Discharge - Discharge Clinical Impression: End stage renal disease on dialysis Fluid overload Qualifiers: Hypervolemia type: unspecified Qualified Code(s): E87.70 - Fluid overload, unspecified Nausea & vomiting Qualifiers: Vomiting type: unspecified Vomiting Intractability: unspecified Qualified Code( s): R11.2 - Nausea with vomiting, unspecified Condition: Fair Disposition: HOME, SELF-CARE Instructions: Nausea or Vomiting, Nonspecific ([facility]) Additional Instructions: Your examination of this consistent with some mild fluid overload please go directly to dialysis. At this time your abdominal examination is benign do not see any surgical pathology more likely her nausea vomiting could be due to a virus. We will see any home with some medication to aid in the symptoms. Return to the ER symptoms worsen Prescriptions: Ondansetron [Zofran Odt 4 mg Tablet] 1 - 2 tab PO Q4H PRN #15 tab.rapdis PRN Reason: For Nausea/Vomiting Referrals: [facility] GONZALEZ MD [Primary Care Provider] - Follow up as needed
[2016-12-25 11:40] VITALS: BP 173/48
--- NOTE | 2016-12-25 15:34 | EKG REPORT ---
SEVERITY:- ABNORMAL ECG - SINUS RHYTHM FIRST DEGREE AV BLOCK BORDERLINE R WAVE PROGRESSION, ANTERIOR LEADS : Confirmed by: Ebenezer Hutchins MD 25-Dec-2016 15:33:40
== END 2016-12-25 11:10 | disposition home or self-care (01) ==
LOC: ER 10:11
DX: N18.6 End stage renal disease (principal); E87.70 Fluid overload, unspecified; R11.2 Nausea with vomiting, unspecified; R05 Cough; R06.02 Shortness of breath; Z99.2 Dependence on renal dialysis
CPT/HCPCS: 99284; 71020; 93005; 93010; A9270

== ENCOUNTER 2017-01-22 06:27 | Emergency (ER) | payer MEDICARE, OTHER ==
[2017-01-22] MEDS ORDERED: LEVOFLOXACIN 500 MG/D5W RTU 100 ML IV ONE (06:48)
[2017-01-22] MEDS ORDERED: VANCOMYCIN HCL INJ 1000 MG VIAL IV ONE (06:48)
[2017-01-22] MEDS ORDERED: PIPERACILLIN/TAZOBACTAM 3.375 GM VIAL IV ONE (06:48)
--- NOTE | 2017-01-22 06:48 | ER Document Report ---
ED General - General Stated Complaint: DIFFICULTY BREATHING Mode of Arrival: Medic Information source: Patient Notes: 86 yr old female dialysis who had dialysis last on sunday presents with complaints of sob of 2 day duration. denies any fevers or chills, admits to thick productive cough worsened with exertion. TRAVEL OUTSIDE OF THE [place] IN LAST 30 DAYS: No - HPI Onset: Other Onset/Duration: Persistent Quality of pain: No pain Severity: Moderate Pain Level: 0 Associated symptoms: Productive cough, Shortness of breath Exacerbated by: Movement, Walking Relieved by: Denies Similar symptoms previously: Yes Recently seen / treated by doctor: Yes - Related Data Allergies/Adverse Reactions: rosuvastatin calcium [From Crestor] Allergy (Unknown, Verified 12/11/16 19:13) "Symptoms like the flu" Past Medical History - Social History Smoking Status: Never Smoker Cigarette use (# per day): No Chew tobacco use (# tins/day): No Smoking Education Provided: No Family History: Reviewed & Not Pertinent - Past Medical History Cardiac Medical History: Reports: Hx Congestive Heart Failure, Hx Coronary Artery Disease, Hx Heart Attack - PER EKG READING ON 03/25/14, Hx Hypercholesterolemia, Hx Hypertension Pulmonary Medical History: Reports: Hx COPD, Hx Pneumonia - Hx of 12/2014 Denies: Hx Asthma, Hx Bronchitis, Hx Tuberculosis Neurological Medical History: Denies: Hx Cerebrovascular Accident, Hx Seizures Endocrine Medical History: Reports: Hx Diabetes Mellitus Type 2 Renal/ Medical History: Reports: Hx End Stage Renal Disease GI Medical History: Reports: Hx Gastroesophageal Reflux Disease Musculoskeltal Medical History: Reports Hx Arthritis Psychiatric Medical History: Denies: Hx Depression Traumatic Medical History: Reports: Hx Fractures - RECENT PELVIS Fx Past Surgical History: Reports: Hx Hysterectomy, Hx Orthopedic Surgery - left knee, Hx Vascular Surgery - Immunizations Hx Diphtheria, Pertussis, Tetanus Vaccination: Yes Hx Pneumococcal Vaccination: 07/29/16 Review of Systems - Review of Systems Notes: REVIEW OF SYSTEMS: CONSTITUTIONAL : Denies fever, chills, or sweats. Denies recent illness. EENT: Denies eye, ear, throat, or mouth pain or symptoms. Denies nasal or sinus congestion or discharge. Denies throat, tongue, or mouth swelling or difficulty swallowing. CARDIOVASCULAR: Denies chest pain. Denies palpitations or racing or irregular heart beat. Denies ankle edema. RESPIRATORY: Admits shortness breath productive cough GASTROINTESTINAL: Denies abdominal pain or distention. Denies nausea, vomiting , or diarrhea. Denies blood in vomitus, stools, or per rectum. Denies black, tarry stools. Denies constipation. GENITOURINARY: Denies difficulty urinating, painful urination, burning, frequency, blood in urine, or discharge. FEMALE GENITOURINARY: Denies vaginal bleeding, heavy or abnormal periods, irregular periods. Denies vaginal discharge or odor. MUSCULOSKELETAL: Denies back or neck pain or stiffness. Denies joint pain or swelling. SKIN: Denies rash, lesions or sores. HEMATOLOGIC : Denies easy bruising or bleeding. LYMPHATIC: Denies swollen, enlarged glands. NEUROLOGICAL: Denies confusion or altered mental status. Denies passing out or loss of consciousness. Denies dizziness or lightheadedness. Denies headache. Denies weakness or paralysis or loss of use of either side. Denies problems with gait or speech. Denies sensory loss, numbness, or tingling. Denies seizures. PSYCHIATRIC: Denies anxiety or stress. Denies depression, suicidal ideation, or homicidal ideation. ALL OTHER SYSTEMS REVIEWED AND NEGATIVE. Dictation was performed using [employer] voice recognition software PHYSICAL EXAMINATION: GENERAL: Elderly Well-appearing, well-nourished and in no acute distress. HEAD: Atraumatic, normocephalic. EYES: Pupils equal round and reactive to light, extraocular movements intact, conjunctiva are normal. ENT: Nares patent, oropharynx clear without exudates. Moist mucous membranes. NECK: Normal range of motion, supple without lymphadenopathy LUNGS: Coarse rhonchi all throughout HEART: Regular rate and rhythm without murmurs ABDOMEN: Soft, nontender, nondistended abdomen. No guarding, no rebound. No masses appreciated. Female : deferred Musculoskeletal: Normal range of motion, no pitting or edema. No cyanosis. NEUROLOGICAL: Cranial nerves grossly intact. Normal speech, normal gait. Normal sensory, motor exams PSYCH: Normal mood, normal affect. SKIN: Warm, Dry, normal turgor, no rashes or lesions noted. Physical Exam - Vital signs Vitals: Temp 99.8 F 01/22/17 06:54 Course - Re-evaluation Re-evalutation: 01/22/17 06:47 Patient noted to be febrile by EMS, productive cough probable pneumonia septic workup ordered 01/22/17 08:32 Patient noted to have pneumonia, antibodies have already been ordered, patient unfortunately still does not have blood work due to difficulty. BiPAP ordered - Vital Signs Vital signs: Temp Pulse Resp BP Pulse Ox 99.8 F 01/22/17 06:54 Critical Care Note - Critical Care Note Total time excluding time spent on procedures (mins): 34 Comments: 34 minutes of critical care time spent in direct contact evaluating and reevaluating the patient, treating symptoms, reviewing labs and studies and speaking with family and consultants excluding any procedures Discharge - Discharge Clinical Impression: Respiratory distress, Hospital-acquired pneumonia, End stage renal disease on dialysis Condition: Fair Disposition: ADMITTED INPATIENT Admitting Provider: Hospitalist Unit Admitted: [facility]
[2017-01-22] MEDS ORDERED: LORAZEPAM INJ 2 MG/1 ML VIAL IV ONE (08:27)
[2017-01-22 10:05] LABS: VENOUS BLOOD BASE EXCESS -12.7 mmol/L; VENOUS BLOOD HCO3 14.8 mmol/L (20-32); VENOUS BLOOD PCO2 39.8 mmHg (35-63)
[2017-01-22 10:07] LABS: HEMATOCRIT 29.3 % (36.0-47.0); HEMOGLOBIN 9.9 g/dL (12.0-15.5); HGB HCT DIFFERENCE 0.4; MEAN CORPUSCULAR HGB CONC 33.7 g/dL (32.0-36.0); MEAN CORPUSCULAR VOLUME 101 fl (80-97); RED BLOOD COUNT 2.91 10^6/uL (3.72-5.28); WHITE BLOOD COUNT 10.1 10^3/uL (4.0-10.5)
[2017-01-22 10:09] LABS: VENOUS BLOOD PH 7.19 (7.30-7.42)
[2017-01-22 10:21] LABS: PROTHROMBIN TIME 13.5 SEC (11.4-15.4)
[2017-01-22 10:26] LABS: ALANINE AMINOTRANSFERASE 15 U/L (9-52); ALBUMIN 4.3 g/dL (3.5-5.0); ALKALINE PHOSPHATASE 126 U/L (38-126); ASPARTATE AMINO TRANSFERASE 19 U/L (14-36); BILIRUBIN,TOTAL 1.5 mg/dL (0.2-1.3); BLOOD UREA NITROGEN 89 mg/dL (7-20); CALCIUM 8.5 mg/dL (8.4-10.2); CARBON DIOXIDE 14 mmol/L (22-30); CHLORIDE 100 mmol/L (98-107); CREATININE RESULT 8.24 mg/dL (0.52-1.25); GLUCOSE 134 mg/dL (75-110); SODIUM 137.2 mmol/L (137-145); TOTAL PROTEIN 6.7 g/dL (6.3-8.2)
[2017-01-22 10:47] LABS: ANISOCYTOSIS 1+; BAND NEUTROPHILS % (MANUAL) 1 % (3-5); BASOPHILS % (MANUAL) 0 % (0-2); EOSINOPHILS % (MANUAL) 0 % (0-6); HYPOCHROMASIA SLIGHT; LYMPHOCYTES % (MANUAL) 1 % (13-45); OVALOCYTES SLIGHT; POIKILOCYTOSIS SLIGHT; TOTAL CELLS COUNTED 100; TOXIC GRANULATION SLIGHT; TOXIC VACUOLATION PRESENT
[2017-01-22 10:49] LABS: POTASSIUM 6.2 mmol/L (3.6-5.0)
[2017-01-22] MEDS ORDERED: ALBUTEROL SULFATE 0.083% NEB 2.5 MG/3 ML AMPUL NEB ONE (10:50)
[2017-01-22] MEDS ORDERED: INSULIN REG, HUMAN 100 UNIT/ML 3 ML VIAL (PYX) IV ONE (10:50)
[2017-01-22] MEDS ORDERED: SODIUM BICARBONATE 8.4% INJ 50 MEQ/50 ML DISP.SYRIN IV ONE (10:50)
[2017-01-22] MEDS ORDERED: DEXTROSE 50%-WATER 25 GM/50 ML DISP.SYRIN IV ONE (10:51)
[2017-01-22] MEDS ORDERED: CALCIUM CHLORIDE 10% PF/INJ 1000 MG/10 ML SDV IV ONE (10:52)
[2017-01-22 11:16] LABS: ANION GAP 23 (5-19)
[2017-01-22] MEDS ORDERED: ACETAMINOPHEN 325 MG TABLET PO ONE (13:16)
[2017-01-22] MEDS ORDERED: CALCIUM GLUCONATE 1000 MG/10 ML INJ IV ONE (13:16)
[2017-01-22 13:25] LABS: APPEARANCE,URINE CLOUDY; BILIRUBIN,URINE NEGATIVE (NEGATIVE); GLUCOSE, URINE 50 mg/dL (NEGATIVE); KETONES,URINE NEGATIVE (NEGATIVE); LEUKOCYTE ESTERASE,URINE MODERATE (NEGATIVE); NITRITE,URINE NEGATIVE (NEGATIVE); PROTEIN,URINE 100 mg/dL (NEGATIVE); URINE SPECIFIC GRAVITY 1.014; UROBILINOGEN,URINE NEGATIVE mg/dL (<2.0)
--- NOTE | 2017-01-22 16:06 | EKG REPORT ---
SEVERITY:- ABNORMAL ECG - SINUS RHYTHM BORDERLINE R WAVE PROGRESSION, ANTERIOR LEADS NONSPECIFIC T ABNORMALITIES, ANTERIOR LEADS : Confirmed by: Rigo Herrera 22-Jan-2017 16:05:09
[2017-01-22 17:23] VITALS: BP 163/78
== END 2017-01-22 17:26 | disposition short-term general hospital (02) ==
LOC: ER 06:27
DX: R06.00 Dyspnea, unspecified (principal); J18.9 Pneumonia, unspecified organism; Y95 Nosocomial condition; E11.22 Type 2 diabetes mellitus with diabetic chronic kidney disease; I13.2 Hypertensive heart and chronic kidney disease with heart failure and with stage 5 chronic kidney disease, or end stage renal disease; I50.9 Heart failure, unspecified; N18.6 End stage renal disease; I25.10 Atherosclerotic heart disease of native coronary artery without angina pectoris; E78.00 Pure hypercholesterolemia, unspecified; Z99.2 Dependence on renal dialysis; I25.2 Old myocardial infarction; Z90.710 Acquired absence of both cervix and uterus
CPT/HCPCS: 93005; 94640; 99285; 96375; 96365; 96366; 96367; 36415; 87040; 87086; 82962; 85025; 85610; 80053; 81001; 82803; 83605; 71010; 93010; A9270 ×3; J1956; J0610; J3490 ×2; J2060; J3370; J1815

== ENCOUNTER → 2017-02-16 | Outpatient (CLI) | payer MEDICARE, OTHER | LOC: OD 09:53 | PROVIDERS: ATTEND Physician Assistant | DX: R06.02 Shortness of breath (principal) | CPT/HCPCS: 71020 ==

== ENCOUNTER → 2017-03-01 | Outpatient (CLI) | payer MEDICARE, OTHER | LOC: OD 10:36 | PROVIDERS: ATTEND Family Medicine | DX: R06.02 Shortness of breath (principal); I51.7 Cardiomegaly | CPT/HCPCS: 71020 ==

== ENCOUNTER 2017-03-07 18:09 | Emergency (ER) | payer MEDICARE, OTHER ==
--- NOTE | 2017-03-07 18:47 | ER Document Report ---
ED General - General Chief Complaint: General Weakness Stated Complaint: WEAKNESS Time Seen by Provider: 03/07/17 18:19 Mode of Arrival: Medic Information source: Patient, Relative Notes: This is an 86-year-old female dialysis dependent who presents to the ER via EMS for complaints of generalized weakness. Majority of history is obtained from the daughter who the patient lives with. Daughter states that patient did well during her regular scheduled dialysis today. However upon returning patient had more fatigue and generalized weakness than is usual for her. The caregiver at home reported that patient was too weak to ambulate to the bathroom with her walker as she normally does. Of note patient saw her primary care physician Dr. Gonzalez last Sunday and was told that she might have pneumonia. She was already on an antibiotic (Keflex) for a UTI and no further antibiotics were ordered. No reported fever however EMS did have a temperature of 100.3. Daughter reports the patient has been intermittently cold and then diaphoretic this afternoon. Patient denies any specific complaints and states she just feels tired. She denies any chest pain, shortness of breath, abdominal pain, nausea or vomiting. She states she had a normal bowel movement this morning. She states she occasionally does still make urine and has not had dysuria. TRAVEL OUTSIDE OF THE [place] IN LAST 30 DAYS: No - Related Data Allergies/Adverse Reactions: rosuvastatin calcium [From Crestor] Allergy (Unknown, Verified 03/07/17 18:43) "Symptoms like the flu" Past Medical History - General Information source: Relative, [facility] Records - Social History Smoking Status: Unknown if Ever Smoked Frequency of alcohol use: None Drug Abuse: None Lives with: Family Family History: Reviewed & Not Pertinent - Past Medical History Cardiac Medical History: Reports: Hx Congestive Heart Failure, Hx Coronary Artery Disease, Hx Heart Attack - PER EKG READING ON 03/25/14, Hx Hypercholesterolemia, Hx Hypertension Pulmonary Medical History: Reports: Hx COPD, Hx Pneumonia - Hx of 12/2014 Denies: Hx Asthma, Hx Bronchitis, Hx Tuberculosis Neurological Medical History: Denies: Hx Cerebrovascular Accident, Hx Seizures Endocrine Medical History: Reports: Hx Diabetes Mellitus Type 2 Renal/ Medical History: Reports: Hx End Stage Renal Disease GI Medical History: Reports: Hx Gastroesophageal Reflux Disease Musculoskeltal Medical History: Reports Hx Arthritis Psychiatric Medical History: Denies: Hx Depression Traumatic Medical History: Reports: Hx Fractures - RECENT PELVIS Fx Past Surgical History: Reports: Hx Hysterectomy, Hx Orthopedic Surgery - left knee, Hx Vascular Surgery - Immunizations Hx Diphtheria, Pertussis, Tetanus Vaccination: Yes Hx Pneumococcal Vaccination: 07/29/16 Review of Systems - Review of Systems Constitutional: See HPI, Weakness. denies: Fever EENT: No symptoms reported Cardiovascular: No symptoms reported. denies: Chest pain, Palpitations Respiratory: See HPI, Short of breath Gastrointestinal: No symptoms reported, Abdominal pain, Nausea, Vomiting Genitourinary: No symptoms reported, See HPI Musculoskeletal: No symptoms reported Skin: No symptoms reported Hematologic/Lymphatic: No symptoms reported Neurological/Psychological: No symptoms reported Physical Exam - Vital signs Vitals: Temp Pulse Resp BP Pulse Ox 99.3 F 67 21 H 138/42 H 97 03/07/17 18:20 03/07/17 18:20 03/07/17 18:20 03/07/17 18:20 03/07/17 18:20 - Notes Notes: PHYSICAL EXAMINATION: GENERAL: Frail elderly female who appears younger than stated age, well- nourished pleasant/conversant, and in no acute distress. Smiling. HEAD: Atraumatic, normocephalic. EYES: Pupils equal round and reactive to light, extraocular movements intact, sclera anicteric, conjunctiva are normal. ENT: nares patent, oropharynx clear without exudates. Moist mucous membranes. NECK: Normal range of motion, supple without lymphadenopathy LUNGS: decreased bibasilar breath sounds, good air movement bilaterally, no wheezes or rhonchi appreciated HEART: Regular rate and rhythm without murmurs ABDOMEN: Soft, nontender, normoactive bowel sounds. No guarding, no rebound. No masses appreciated. EXTREMITIES: Normal range of motion, no edema NEUROLOGICAL: Cranial nerves grossly intact. Normal speech. No gross focal motor or sensory deficits appreciated. PSYCH: Normal mood, normal affect. SKIN: Warm, Dry, normal turgor, no rashes or lesions noted. Course - Re-evaluation Re-evalutation: 03/07/17 20:31 Patient was reevaluated. She is smiling, pleasant, and conversant. I discussed with her and with her daughter the lab results. Her chest x-ray shows no evidence of pneumonia. Her catheter urine specimen does show evidence of a UTI. I suspect that this is the source of the low-grade fever and generalized weakness. Given that she has been on Keflex for the past week, I will change her antibiotic to Levaquin. She received 1 dose of Levaquin IV in the ER. She is discharged with a prescription for oral antibiotic and will follow up with her primary care physician. She feels well at this time and does not want to stay in the hospital and I feel that outpatient treatment is appropriate at this time. Daughter is well versed in patient's care and reliable to return with the patient should symptoms persist or worsen. - Vital Signs Vital signs: Temp Pulse Resp BP Pulse Ox 99.3 F 67 16 146/42 H 97 03/07/17 18:20 03/07/17 18:20 03/07/17 19:02 03/07/17 19:02 03/07/17 19:02 - Laboratory Result Diagrams: 03/07/17 18:28 03/07/17 18:28 Laboratory results interpreted by me: 03/07/17 03/07/17 03/07/17 18:28 18:28 18:28 WBC 14.0 H RBC 2.78 L Hgb 9.2 L Hct 28.0 L MCV 101 H RDW 16.5 H Seg Neuts % (Manual) 92 H Lymphocytes % (Manual) 2 L Abs Neuts (Manual) 12.9 H Abs Lymphs (Manual) 0.3 L APTT 39.8 H Sodium 134.7 L Potassium 3.4 L Chloride 96 L BUN 24 H Creatinine 2.51 H Est GFR ( Amer) 22 L Est GFR (Non-Af Amer) 18 L Glucose 126 H Calcium 8.2 L Direct Bilirubin 0.7 H Alkaline Phosphatase 183 H Urine Protein Urine Blood Ur Leukocyte Esterase 03/07/17 19:32 WBC RBC Hgb Hct MCV RDW Seg Neuts % (Manual) Lymphocytes % (Manual) Abs Neuts (Manual) Abs Lymphs (Manual) APTT Sodium Potassium Chloride BUN Creatinine Est GFR ( Amer) Est GFR (Non-Af Amer) Glucose Calcium Direct Bilirubin Alkaline Phosphatase Urine Protein >=500 H Urine Blood MODERATE H Ur Leukocyte Esterase LARGE H - EKG Interpretation by Me Additional EKG results interpreted by me: 03/07/17 20:38 EKG at 1957 demonstrates sinus rhythm with multiple atrial premature complexes. No ST segment elevation or depression. Discharge - Discharge Clinical Impression: UTI (urinary tract infection) Condition: Stable Disposition: HOME, SELF-CARE Additional Instructions: URINARY TRACT INFECTION: Your evaluation indicates that you have a urinary tract infection. This is due to germs growing in the bladder. This is a common problem. This infection usually responds quickly to antibiotics. Your antibiotic should be taken exactly as prescribed. Drink plenty of fluids -- three to four quarts a day. Occasionally, a bladder anesthetic will be prescribed to help stop the feeling of urgency until the antibiotic has a chance to clear the infection. This may cause your urine to be dark orange. Certain urine infections require a culture. If the doctor obtained a culture, the results will be back in two days. You should call to see if a change in treatment is needed. A repeat urinalysis after you finish treatment is often recommended. The physician will let you know if further testing is required. Call the doctor if you develop fever, chills, flank pain, inability to urinate, or blood in the urine. ANTIBIOTIC THERAPY: You have been given an antibiotic prescription. It's important that you take all the medication, unless instructed otherwise by your physician. Failure to complete the entire course can result in relapse of your condition. Common side effects of antibiotics include nausea, intestinal cramping, or diarrhea. Women may develop vaginal yeast infections, and babies can get yeast (thrush) in the mouth following the use of antibiotics. Contact your physician if you develop significant side effects from this medication. Allergy to this antibiotic can result in hives, wheezing, faintness, or itching. If symptoms of allergy occur, stop the medication and call the doctor. LEVOFLOXACIN: You have been given an antibacterial agent, levofloxacin (Levaquin). This medicine is not related to the penicillins, sulfas, cephalosporins, or tetracyclines. It is often given to patients who are allergic to these drugs. It has been chosen for you either because other drugs are not appropriate, or because of the nature of your problem. Levaquin should not be taken with antacids, as these can decrease its effectiveness. It can be taken without regard to meals. LEVAQUIN SHOULD NOT BE TAKEN BY CHILDREN, NURSING WOMEN, OR WOMEN. Although Levaquin is usually well-tolerated, common side effects can include nausea and diarrhea. Contact your doctor if you experience any unusual symptoms while on this medication, such as joint pain or swelling, shortness of breath, wheezing, faintness, or hives. FOLLOW-UP CARE: If you have been referred to a physician for follow-up care, call the physician s office for an appointment as you were instructed or within the next two days. If you experience worsening or a significant change in your symptoms, notify the physician immediately or return to the Emergency Department at any time for re-evaluation. Prescriptions: Levofloxacin [Levaquin 750 mg Tablet] 750 mg PO DAILY #7 tablet Referrals: MC GONZALEZ MD [Primary Care Provider] - Follow up in 3-5 days
[2017-03-07 19:05] LABS: ALANINE AMINOTRANSFERASE 23 U/L (9-52); ALBUMIN 3.5 g/dL (3.5-5.0); ALKALINE PHOSPHATASE 183 U/L (38-126); ANION GAP 11 (5-19); ASPARTATE AMINO TRANSFERASE 15 U/L (14-36); BILIRUBIN,DIRECT 0.7 mg/dL (0.0-0.4); BILIRUBIN,TOTAL 0.9 mg/dL (0.2-1.3); BLOOD UREA NITROGEN 24 mg/dL (7-20); CALCIUM 8.2 mg/dL (8.4-10.2); CARBON DIOXIDE 28 mmol/L (22-30); CHLORIDE 96 mmol/L (98-107); CREATININE RESULT 2.51 mg/dL (0.52-1.25); GLUCOSE 126 mg/dL (75-110); POTASSIUM 3.4 mmol/L (3.6-5.0); PROTHROMBIN TIME 13.6 SEC (11.4-15.4); SODIUM 134.7 mmol/L (137-145); TOTAL PROTEIN 6.5 g/dL (6.3-8.2)
[2017-03-07 19:06] LABS: PARTIAL THROMBOPLASTIN TIME 39.8 SEC (23.5-35.8)
[2017-03-07] MEDS ORDERED: LEVOFLOXACIN 500 MG/D5W RTU 100 ML IV ONE ×2 (19:26→20:26)
[2017-03-07 19:29] LABS: HEMOGLOBIN 9.2 g/dL (12.0-15.5); HGB HCT DIFFERENCE -0.4; MEAN CORPUSCULAR HEMOGLOBIN 33.2 pg (27.0-33.4); MEAN CORPUSCULAR VOLUME 101 fl (80-97); RED BLOOD COUNT 2.78 10^6/uL (3.72-5.28); RED CELL DISTRIBUTION WIDTH 16.5 % (11.5-14.0)
[2017-03-07 19:49] LABS: BASOPHILS % (MANUAL) 1 % (0-2); EOSINOPHILS % (MANUAL) 0 % (0-6); LYMPHOCYTES % (MANUAL) 2 % (13-45); TOTAL CELLS COUNTED 100
[2017-03-07 19:51] LABS: APPEARANCE,URINE CLOUDY; BILIRUBIN,URINE NEGATIVE (NEGATIVE); GLUCOSE, URINE NEGATIVE (NEGATIVE); KETONES,URINE NEGATIVE (NEGATIVE); LEUKOCYTE ESTERASE,URINE LARGE (NEGATIVE); NITRITE,URINE NEGATIVE (NEGATIVE); PROTEIN,URINE >=500 mg/dL (NEGATIVE); UROBILINOGEN,URINE NEGATIVE mg/dL (<2.0)
[2017-03-07 19:52] LABS: ANISOCYTOSIS 1+; HYPOCHROMASIA 1+; ROULEAUX SLIGHT; TOXIC VACUOLATION PRESENT
[2017-03-07 21:01] VITALS: BP 135/56
--- NOTE | 2017-03-07 23:38 | EKG REPORT ---
SEVERITY:- ABNORMAL ECG - SINUS RHYTHM MULTIPLE ATRIAL PREMATURE COMPLEXES BORDERLINE R WAVE PROGRESSION, ANTERIOR LEADS : Confirmed by: Rigo Herrera 07-Mar-2017 23:38:01
== END 2017-03-07 21:00 | disposition home or self-care (01) ==
LOC: ER 18:09
DX: N39.0 Urinary tract infection, site not specified (principal); R50.9 Fever, unspecified; R53.1 Weakness; R53.83 Other fatigue; R06.02 Shortness of breath; I12.0 Hypertensive chronic kidney disease with stage 5 chronic kidney disease or end stage renal disease; E11.22 Type 2 diabetes mellitus with diabetic chronic kidney disease; N18.6 End stage renal disease; Z99.2 Dependence on renal dialysis; I25.10 Atherosclerotic heart disease of native coronary artery without angina pectoris; J44.9 Chronic obstructive pulmonary disease, unspecified; Z88.8 Allergy status to other drugs, medicaments and biological substances
CPT/HCPCS: 93005; 99285; 51701; 96365; 36415; 87040; 87086; 85025; 85610; 85730; 87077; 80053; 81001; 71010; 93010; J1956

== ENCOUNTER 2017-03-19 14:51 | Emergency (ER) | payer MEDICARE, OTHER ==
--- NOTE | 2017-03-19 16:02 | ER Document Report ---
ED Medical Screen (RME) - General Chief Complaint: Confusion, weakness Stated Complaint: CONFUSION Time Seen by Provider: 03/19/17 15:57 Mode of Arrival: Wheelchair Information source: Patient, Relative Notes: pt presents with family member who states pt has had confusion off/on for the past 3 days. Pt has had frequent bouts of pnuemonia and recently was treated for a UTI 2 weeks ago. Pt has been complaining of knee pain. Right knee swollen. Pt had difficulty ambulating which is not typical for patient. Hx Dialysis MWF, CHF TRAVEL OUTSIDE OF THE [place] IN LAST 30 DAYS: No - Related Data Allergies/Adverse Reactions: rosuvastatin calcium [From Crestor] Allergy (Unknown, Verified 03/07/17 18:43) "Symptoms like the flu" Past Medical History - Past Medical History Cardiac Medical History: Reports: Hx Congestive Heart Failure, Hx Coronary Artery Disease, Hx Heart Attack - PER EKG READING ON 03/25/14, Hx Hypercholesterolemia, Hx Hypertension Pulmonary Medical History: Reports: Hx COPD, Hx Pneumonia - Hx of 12/2014 Denies: Hx Asthma, Hx Bronchitis, Hx Tuberculosis Neurological Medical History: Denies: Hx Cerebrovascular Accident, Hx Seizures Endocrine Medical History: Reports: Hx Diabetes Mellitus Type 2 Renal/ Medical History: Reports: Hx End Stage Renal Disease. Denies: Hx Peritoneal Dialysis GI Medical History: Reports: Hx Gastroesophageal Reflux Disease Musculoskeltal Medical History: Reports Hx Arthritis Psychiatric Medical History: Denies: Hx Depression Traumatic Medical History: Reports: Hx Fractures - RECENT PELVIS Fx Past Surgical History: Reports: Hx Hysterectomy, Hx Orthopedic Surgery - left knee, Hx Vascular Surgery - Immunizations Hx Diphtheria, Pertussis, Tetanus Vaccination: Yes Physical Exam - Vital signs Vitals: Temp Pulse Resp BP Pulse Ox 98.1 F 69 16 129/48 H 97 03/19/17 15:19 03/19/17 15:19 03/19/17 15:19 03/19/17 15:19 03/19/17 15:19 - Respiratory Breath sounds: Nonproductive cough, Rales - Left side - Extremities General lower extremity: Tender - tender, swollen right knee Course - Vital Signs Vital signs: Temp Pulse Resp BP Pulse Ox 98.1 F 69 16 129/48 H 97 03/19/17 15:19 03/19/17 15:19 03/19/17 15:19 03/19/17 15:19 03/19/17 15:19
--- NOTE | 2017-03-19 16:58 | RADIOLOGY REPORT (SQ) ---
EXAM DESCRIPTION: CHEST PA/LAT COMPLETED DATE/TIME: 03/19/2017 4:46 pm REASON FOR STUDY: confusion COMPARISON: 12/25/2016 EXAM PARAMETERS: NUMBER OF VIEWS: two views TECHNIQUE: Digital Frontal and Lateral radiographic views of the chest acquired. RADIATION DOSE: NA LIMITATIONS: none FINDINGS: LUNGS AND PLEURA: Minimal pleural effusions are best seen on the lateral view. There are no pulmonary infiltrates. No mass is seen. MEDIASTINUM AND HILAR STRUCTURES: No masses or contour abnormalities. HEART AND VASCULAR STRUCTURES: Cardiomegaly with no evidence of failure. BONES: No acute findings. HARDWARE: None in the chest. OTHER: No other significant finding. IMPRESSION: Cardiomegaly with minimal pleural effusions but no jose maria CHF. TECHNICAL DOCUMENTATION: JOB ID: [id number] [employer]- All Rights Reserved
--- NOTE | 2017-03-19 17:00 | RADIOLOGY REPORT (SQ) ---
EXAM DESCRIPTION: KNEE RIGHT 2 VIEWS COMPLETED DATE/TIME: 03/19/2017 4:46 pm REASON FOR STUDY: r knee pain, swelling COMPARISON: None. NUMBER OF VIEWS: Two views. TECHNIQUE: AP and lateral radiographic images acquired of the right knee. LIMITATIONS: None. FINDINGS: MINERALIZATION: Osteopenia. BONES: No acute fracture or dislocation. No worrisome bone lesions. JOINT: There is narrowing of the medial joint compartment and the patellofemoral compartment. [place] Nurse ior patellar osteophytes are present. Marginal osteophytes are present the medial and lateral joint compartments. SOFT TISSUES: No soft tissue swelling. No radio-opaque foreign body. OTHER: No other significant finding. IMPRESSION: Degenerative joint disease as described. No acute abnormality is seen. TECHNICAL DOCUMENTATION: JOB ID: [id number] [employer]- All Rights Reserved
--- NOTE | 2017-03-19 17:24 | RADIOLOGY REPORT (SQ) ---
EXAM DESCRIPTION: CT HEAD WITHOUT COMPLETED DATE/TIME: 03/19/2017 4:59 pm REASON FOR STUDY: confusion COMPARISON: 04/19/2015 TECHNIQUE: Axial images acquired through the brain without intravenous contrast. Images reviewed wi th bone, brain and subdural windows. Images stored on PACS. All CT scanners at this facility use dose modulation, iterative reconstruction, and/or weight based d osing when appropriate to reduce radiation dose to as low as reasonably achievable (ALARA). [facility]: Dose Right [facility]: CareDose [facility]: Dose Right [facility]: Teradose 4D [facility]: Totally Interactive Weather RADIATION DOSE: 64.61 mGy. LIMITATIONS: None. FINDINGS: VENTRICLES: Normal size and contour. CEREBRUM: Cortical atrophy. There are small areas of decreased attenuation in the periventricular wh ite matter. There is an area of encephalomalacia in the right occipital lobe. No masses. No hemorr marco. No midline shift. Normal diaz/white matter differentiation. No evidence for acute infarction . CEREBELLUM: No masses. No hemorrhage. No alteration of density. No evidence for acute infarction. EXTRAAXIAL SPACES: No fluid collections. No masses. ORBITS AND GLOBE: No intra- or extraconal masses. Normal contour of globe without masses. CALVARIUM: No fracture. PARANASAL SINUSES: No fluid or mucosal thickening. SOFT TISSUES: No mass or hematoma. OTHER: No other significant finding. IMPRESSION: 1. Involutional changes of aging with evidence of chronic microvascular ischemic diseas e. 2. 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 TECHNICAL DOCUMENTATION: JOB ID: [id number] Quality ID # [id number]: Final reports with documentation of one or more dose reduction techniques (e.g., Au tomated exposure control, adjustment of the mA and/or kV according to patient size, use of iterative reconstruction technique) 2010 [employer]- All Rights Reserved
--- NOTE | 2017-03-19 18:44 | EKG REPORT ---
SEVERITY:- ABNORMAL ECG - SINUS RHYTHM MULTIPLE ATRIAL PREMATURE COMPLEXES BORDERLINE R WAVE PROGRESSION, ANTERIOR LEADS CONSIDER OLD ANTERIOR NC ABNORMAL T, CONSIDER ISCHEMIA, ANTERIOR LEADS : Confirmed by: Ebenezer Hutchins MD 19-Mar-2017 18:43:46
[2017-03-19 19:08] LABS: ABSOLUTE BASOPHILS # (AUTO) 0.1 10^3/uL (0.0-0.2); ABSOLUTE EOSINOPHILS # (AUTO) 0.1 10^3/uL (0.0-0.6); ABSOLUTE LYMPHOCYTES (AUTO) 0.9 10^3/uL (0.5-4.7); ABSOLUTE NEUT (AUTO) 7.9 10^3/uL (1.7-8.2); BASOPHILS % (AUTO) 0.6 % (0-2); EOSINOPHILS % (AUTO) 0.7 % (0-6); HEMATOCRIT 28.7 % (36.0-47.0); HEMOGLOBIN 9.6 g/dL (12.0-15.5); HGB HCT DIFFERENCE 0.1; MEAN CORPUSCULAR HEMOGLOBIN 33.5 pg (27.0-33.4); MEAN CORPUSCULAR HGB CONC 33.3 g/dL (32.0-36.0); MEAN CORPUSCULAR VOLUME 100 fl (80-97); MONOCYTES % (AUTO) 10.2 % (3-13); RED BLOOD COUNT 2.86 10^6/uL (3.72-5.28); RED CELL DISTRIBUTION WIDTH 15.2 % (11.5-14.0); SEGMENTED NEUTROPHILS % (AUTO) 79.5 % (42-78); WHITE BLOOD COUNT 9.9 10^3/uL (4.0-10.5)
[2017-03-19 19:29] LABS: ALANINE AMINOTRANSFERASE 21 U/L (9-52); ALBUMIN 3.6 g/dL (3.5-5.0); ALKALINE PHOSPHATASE 145 U/L (38-126); ANION GAP 16 (5-19); ASPARTATE AMINO TRANSFERASE 13 U/L (14-36); BILIRUBIN,DIRECT 0.8 mg/dL (0.0-0.4); BILIRUBIN,TOTAL 0.9 mg/dL (0.2-1.3); BLOOD UREA NITROGEN 23 mg/dL (7-20); CALCIUM 8.7 mg/dL (8.4-10.2); CARBON DIOXIDE 24 mmol/L (22-30); CHLORIDE 95 mmol/L (98-107); CREATININE RESULT 2.72 mg/dL (0.52-1.25); GLUCOSE 105 mg/dL (75-110); MAGNESIUM 1.7 mg/dL (1.6-2.3); POTASSIUM 3.8 mmol/L (3.6-5.0); SODIUM 135.2 mmol/L (137-145); TOTAL PROTEIN 6.3 g/dL (6.3-8.2)
[2017-03-19 19:30] LABS: CREATINE KINASE < 20 U/L (30-135)
[2017-03-19 19:41] LABS: CREATINE KINASE MB 1.09 ng/mL (<4.55); TROPONIN I 0.021 ng/mL
--- NOTE | 2017-03-19 20:09 | ER Document Report ---
ED General - General Chief Complaint: Confusion, weakness Stated Complaint: CONFUSION Time Seen by Provider: 03/19/17 15:57 Mode of Arrival: Wheelchair TRAVEL OUTSIDE OF THE [place] IN LAST 30 DAYS: No - HPI Patient complains to provider of: Generalized weakness Onset/Duration: Gradual, Persistent Quality of pain: Achy Severity: Moderate Pain Level: 3 Associated symptoms: Body/muscle aches, Weakness Exacerbated by: Denies Relieved by: Denies Similar symptoms previously: Yes Recently seen / treated by doctor: Yes Notes: Patient is an 86-year-old female with hypertension, COPD, diabetes, end-stage renal disease, acid reflux and arthritis, who was brought to the emergency room by daughter for complaints of generalized weakness, shortly after hemodialysis today, patient home health aide caregiver was unable to get her in and out of the car because of generalized weakness, she is also complaining of right knee pain, patient is a chronic pain patient who is involved in [place] pain management and takes oxycodone and Robaxin for her pain pain, she has a history of known arthritis, she was recently treated for urinary tract infection - Related Data Allergies/Adverse Reactions: rosuvastatin calcium [From Crestor] Allergy (Unknown, Verified 03/07/17 18:43) "Symptoms like the flu" Past Medical History - General Information source: Patient, Relative - Social History Smoking Status: Unknown if Ever Smoked Family History: Reviewed & Not Pertinent - Past Medical History Cardiac Medical History: Reports: Hx Congestive Heart Failure, Hx Coronary Artery Disease, Hx Heart Attack - PER EKG READING ON 03/25/14, Hx Hypercholesterolemia, Hx Hypertension Pulmonary Medical History: Reports: Hx COPD, Hx Pneumonia - Hx of 12/2014 Denies: Hx Asthma, Hx Bronchitis, Hx Tuberculosis Neurological Medical History: Denies: Hx Cerebrovascular Accident, Hx Seizures Endocrine Medical History: Reports: Hx Diabetes Mellitus Type 2 Renal/ Medical History: Reports: Hx End Stage Renal Disease. Denies: Hx Peritoneal Dialysis GI Medical History: Reports: Hx Gastroesophageal Reflux Disease Musculoskeltal Medical History: Reports Hx Arthritis Psychiatric Medical History: Denies: Hx Depression Traumatic Medical History: Reports: Hx Fractures - RECENT PELVIS Fx Past Surgical History: Reports: Hx Hysterectomy, Hx Orthopedic Surgery - left knee, Hx Vascular Surgery - Immunizations Hx Diphtheria, Pertussis, Tetanus Vaccination: Yes Hx Pneumococcal Vaccination: 07/29/16 Review of Systems - Review of Systems Constitutional: Weakness EENT: No symptoms reported Cardiovascular: No symptoms reported Respiratory: No symptoms reported Gastrointestinal: No symptoms reported Genitourinary: No symptoms reported Female Genitourinary: No symptoms reported Musculoskeletal: No symptoms reported Skin: No symptoms reported Hematologic/Lymphatic: No symptoms reported Neurological/Psychological: See HPI -: Yes All other systems reviewed and negative Physical Exam - Vital signs Vitals: Temp Pulse Resp BP Pulse Ox 98.1 F 69 16 129/48 H 97 03/19/17 15:19 03/19/17 15:19 03/19/17 15:19 03/19/17 15:19 03/19/17 15:19 Interpretation: Normal - General General appearance: Alert In distress: None - HEENT Head: Normocephalic, Atraumatic Eyes: Normal Conjunctiva: Normal Extraocular movements intact: Yes Eyelashes: Normal Pupils: PERRL - Respiratory Respiratory status: No respiratory distress Chest status: Nontender Breath sounds: Normal Chest palpation: Normal - Cardiovascular Rhythm: Regular Heart sounds: Normal auscultation Murmur: No - Abdominal Inspection: Normal Distension: No distension Bowel sounds: Normal Tenderness: Nontender Organomegaly: No organomegaly - Back Back: Normal, Tender - Palpation lumbar paraspinal musculature - Extremities General upper extremity: Normal inspection, Nontender, Normal color, Normal ROM , Normal temperature General lower extremity: Normal inspection, Nontender, Normal color, Normal ROM , Normal temperature. No: Carlos Alberto's sign - Neurological Neuro grossly intact: Yes Cognition: Normal [place] Coma Scale Eye Opening: Spontaneous Neptali Coma Scale Verbal: Oriented [place] Coma Scale Motor: Obeys Commands Neptali Coma Scale Total: 15 Speech: Normal - Psychological Associated symptoms: Normal affect, Normal mood - Skin Skin Temperature: Warm Skin Moisture: Dry Skin Color: Normal Course - Re-evaluation Re-evalutation: 03/19/17 20:15 Patient daughter at bedside who is her liquor inspector, she reports that she would prefer to take patient home and have her follow up with Dr. Zamorano as an outpatient, he was antibiotics for urinary tract infection, so she will also ensure that patient get the repeat urine at Dr. Zamorano's office, patient is uncomfortable because she has been sitting in a wheelchair since 230 this afternoon and would like to get home and take her pain medication, because she is in pain management daughter would prefer not to have her given pain medication in the emergency room but would prefer for patient to take her medications once they arrive home, lab and imaging findings were discussed with patient and daughter at bedside which are relatively unremarkable, therefore patient was discharged with instructions for follow-up and advised to return if symptoms worsen, patient and daughter acknowledge understanding and agreement with this plan - Vital Signs Vital signs: Temp Pulse Resp BP Pulse Ox 98.1 F 69 16 129/48 H 97 03/19/17 15:19 03/19/17 15:19 03/19/17 15:19 03/19/17 15:19 03/19/17 15:19 - Laboratory Result Diagrams: 03/19/17 18:43 03/19/17 18:43 Laboratory results interpreted by me: 03/19/17 03/19/17 18:43 18:43 RBC 2.86 L Hgb 9.6 L Hct 28.7 L MCV 100 H MCH 33.5 H RDW 15.2 H Plt Count 141 L Seg Neutrophils % 79.5 H Lymphocytes % 9.0 L Sodium 135.2 L Chloride 95 L BUN 23 H Creatinine 2.72 H Est GFR ( Amer) 20 L Est GFR (Non-Af Amer) 17 L Direct Bilirubin 0.8 H AST 13 L Alkaline Phosphatase 145 H Creatine Kinase < 20 L - Diagnostic Test Radiology reviewed: Image reviewed, Reports reviewed Discharge - Discharge Clinical Impression: Generalized weakness Condition: Stable Disposition: HOME, SELF-CARE Instructions: Weakness ([facility]) Additional Instructions: Follow up with your primary care provider in one to 2 days. Return to the emergency room immediately if symptoms worsen or any additional concerns.
[2017-03-19 20:46] VITALS: BP 143/61
== END 2017-03-19 20:44 | disposition home or self-care (01) ==
LOC: ER 14:51
DX: R53.1 Weakness (principal); M79.1 Myalgia; J44.9 Chronic obstructive pulmonary disease, unspecified; E11.22 Type 2 diabetes mellitus with diabetic chronic kidney disease; I13.2 Hypertensive heart and chronic kidney disease with heart failure and with stage 5 chronic kidney disease, or end stage renal disease; I50.9 Heart failure, unspecified; N18.6 End stage renal disease; Z99.2 Dependence on renal dialysis; I25.2 Old myocardial infarction; E78.00 Pure hypercholesterolemia, unspecified; I25.10 Atherosclerotic heart disease of native coronary artery without angina pectoris; Z90.710 Acquired absence of both cervix and uterus
CPT/HCPCS: 36415; 70450; 71020; 80053; 82550; 82553; 83605; 83735; 84484; 85025; 87040; 93005; 93010; 99285

== ENCOUNTER → 2017-04-12 | Outpatient (CLI) | payer MEDICARE, OTHER ==
--- NOTE | 2017-04-12 14:12 | RADIOLOGY REPORT (SQ) ---
EXAM DESCRIPTION: WRIST RIGHT 3 VIEWS COMPLETED DATE/TIME: 04/12/2017 1:19 pm REASON FOR STUDY: PAIN IN RIGHT WRIST M25.531 PAIN IN RIGHT WRIST COMPARISON: None. NUMBER OF VIEWS: Three views. TECHNIQUE: AP, lateral, and oblique radiographic images acquired of the right wrist. LIMITATIONS: None. FINDINGS: MINERALIZATION: Normal. BONES: No acute fracture or dislocation. No worrisome bone lesions. Normal alignment. 1st metacarpal carpal osteoarthritis. JOINTS: No erosions. No jennifer-articular osteopenia. No chondrocalcinosis. SOFT TISSUES: No swelling. No calcifications. OTHER: No other significant finding. IMPRESSION: Mild osteoarthritis. No acute fracture. TECHNICAL DOCUMENTATION: JOB ID: [id number] [employer]- All Rights Reserved
== END ==
LOC: OD 13:03
PROVIDERS: ATTEND Physician Assistant
DX: M25.531 Pain in right wrist (principal); M19.031 Primary osteoarthritis, right wrist

== ENCOUNTER 2017-04-17 10:29 | Emergency (ER) | payer MEDICARE, OTHER ==
--- NOTE | 2017-04-17 11:24 | ER Document Report ---
ED General - General Chief Complaint: Urinary Problem Stated Complaint: WEAKNESS Time Seen by Provider: 04/17/17 11:04 Notes: patient is a 86-year-old female who is well-known to the emergency department who presents today complaining of dry cough and shortness of breath yesterday. Caregiver and daughter at the bedside states that she has been treated for UTI over the past 5 months on and off. States that she yesterday was having cough and shortness of breath nonproductive. Denies any fevers or chills. Denies any chest pain. Denies any nausea, vomiting, abdominal pain, flank pain. Patient was complaining went to dialysis yesterday. History significant for ESRD on HD via left brachial fistula on //, COPD on as needed 2 L O2, diabetes, hypertension, GERD, arthritis, congestive heart failure, coronary artery disease, history of [place] TRAVEL OUTSIDE OF THE [place] IN LAST 30 DAYS: No - Related Data Allergies/Adverse Reactions: rosuvastatin calcium [From Crestor] Allergy (Unknown, Verified 03/07/17 18:43) "Symptoms like the flu" Past Medical History - Social History Smoking Status: Unknown if Ever Smoked Family History: Reviewed & Not Pertinent - Past Medical History Cardiac Medical History: Reports: Hx Congestive Heart Failure, Hx Coronary Artery Disease, Hx Heart Attack - PER EKG READING ON 03/25/14, Hx Hypercholesterolemia, Hx Hypertension Pulmonary Medical History: Reports: Hx COPD, Hx Pneumonia - Hx of 12/2014 Denies: Hx Asthma, Hx Bronchitis, Hx Tuberculosis Neurological Medical History: Denies: Hx Cerebrovascular Accident, Hx Seizures Endocrine Medical History: Reports: Hx Diabetes Mellitus Type 2 Renal/ Medical History: Reports: Hx End Stage Renal Disease. Denies: Hx Peritoneal Dialysis GI Medical History: Reports: Hx Gastroesophageal Reflux Disease Musculoskeltal Medical History: Reports Hx Arthritis Psychiatric Medical History: Denies: Hx Depression Traumatic Medical History: Reports: Hx Fractures - RECENT PELVIS Fx Past Surgical History: Reports: Hx Hysterectomy, Hx Orthopedic Surgery - left knee, Hx Vascular Surgery - Immunizations Hx Diphtheria, Pertussis, Tetanus Vaccination: Yes Hx Pneumococcal Vaccination: 07/29/16 Review of Systems - Review of Systems Constitutional: No symptoms reported EENT: No symptoms reported Cardiovascular: No symptoms reported Respiratory: Cough, Short of breath. denies: Hurts to breathe, Sputum, Stridor , Wheezing Gastrointestinal: No symptoms reported Genitourinary: No symptoms reported -: Yes All other systems reviewed and negative Physical Exam - Vital signs Vitals: Temp Pulse Resp BP Pulse Ox 97.9 F 79 16 182/50 H 97 04/17/17 11:16 04/17/17 11:16 04/17/17 11:16 04/17/17 11:16 04/17/17 11:16 - Notes Notes: PHYSICAL EXAM GENERAL: Alert, interacts well. HEAD: Normocephalic, atraumatic. EYES: Pupils equal, round, and reactive to light. Extraocular movements intact. ENT: Facial expression equal. Oral mucosa moist, tongue midline. NECK: Full range of motion. Supple. Trachea midline. LUNGS: decreased BS noted at the base of the left lung otherwise clear to auscultation bilaterally, no wheezes, rales, or rhonchi. No respiratory distress. HEART: Regular rate and rhythm. No murmurs, gallops, or rubs. ABDOMEN: Soft, nondistended, nontender. No guarding, rebound, or rigidity.. Bowel sounds present in all 4 quadrants. EXTREMITIES: Moves all 4 extremities spontaneously. 1+ pitting edema in b/l lower extremities, radial and dorsalis pedis pulses 2/4 bilaterally. No cyanosis. No pronator drift bilaterally. NEUROLOGICAL: Alert and oriented x4. Normal speech. PSYCH: Normal affect, normal mood. SKIN: Warm, dry, normal turgor. No rashes or lesions noted. Course - Re-evaluation Re-evalutation: 04/17/17 11:24 Patient is a 86-year-old female who is hemodynamically stable, no acute distress and afebrile. CBC without evidence of anemia significantly different than the patient's baseline labs. No evidence of leukocytosis. 04/17/17 13:08 Patient's chemistry panel shows chronic changes with patient's end-stage renal disease. Troponin elevated upper limits below AMI cut off. Correlate clinically with elevated BNP secondary to patient's end-stage renal disease. Patient without any signs of ACS per history and physical. EKG without any evidence of STEMI. Chest x-ray shows evidence of congestion and effusion. Consult was placed to patient's primary care physician Dr. Gonzalez. 04/17/17 15:06 Discussion with primary care physician indicates the patient is at her baseline fluid overloaded requiring hemodialysis. He states that he feels is appropriate to give her dose of Lasix in the emergency department discharge her home have her attend dialysis tomorrow and follow-up with him on . Patient's urine has returned with evidence of urinary tract infection however patient is receiving antibiotics for this for the past 5 months. Will send for culture. Patient has been doing well in the department, no acute distress, resting comfortably. - Vital Signs Vital signs: Temp Pulse Resp BP Pulse Ox 97.9 F 92 22 H 188/60 H 98 04/17/17 11:16 04/17/17 15:15 04/17/17 15:15 04/17/17 15:15 04/17/17 15:15 - Laboratory Result Diagrams: 04/17/17 12:05 04/17/17 12:05 Laboratory results interpreted by me: 04/17/17 04/17/17 04/17/17 12:05 12:05 12:05 RBC 3.17 L Hgb 9.9 L Hct 31.4 L MCV 99 H MCHC 31.6 L RDW 15.2 H Seg Neutrophils % 84.1 H Lymphocytes % 8.1 L APTT 40.9 H Sodium 134.5 L Chloride 97 L Carbon Dioxide 21 L BUN 28 H Creatinine 3.51 H Est GFR ( Amer) 15 L Est GFR (Non-Af Amer) 12 L Direct Bilirubin 0.9 H AST 12 L Alkaline Phosphatase 163 H NT-Pro-B Natriuret Pep Albumin 3.4 L Urine Protein Urine Blood Ur Leukocyte Esterase 04/17/17 04/17/17 12:05 12:30 RBC Hgb Hct MCV MCHC RDW Seg Neutrophils % Lymphocytes % APTT Sodium Chloride Carbon Dioxide BUN Creatinine Est GFR ( Amer) Est GFR (Non-Af Amer) Direct Bilirubin AST Alkaline Phosphatase NT-Pro-B Natriuret Pep 25415 H Albumin Urine Protein >=500 H Urine Blood SMALL H Ur Leukocyte Esterase LARGE H - Diagnostic Test Radiology reviewed: Image reviewed, Reports reviewed Discharge - Discharge Clinical Impression: End stage renal disease on dialysis Condition: Stable Disposition: HOME, SELF-CARE Instructions: Lasix Additional Instructions: You symptoms today are consistent with your end-stage renal disease which required dialysis. Please be sure to follow-up with dialysis and complete your entire session tomorrow. Please make an appointment to follow-up with Dr. Gonzalez on . Referrals: MC GONZALEZ MD [Primary Care Provider] - 04/19/17
[2017-04-17 12:21] LABS: ABSOLUTE EOSINOPHILS # (AUTO) 0.1 10^3/uL (0.0-0.6); ABSOLUTE LYMPHOCYTES (AUTO) 0.8 10^3/uL (0.5-4.7); ABSOLUTE MONOCYTES (AUTO) 0.6 10^3/uL (0.1-1.4); BASOPHILS % (AUTO) 0.5 % (0-2); EOSINOPHILS % (AUTO) 0.8 % (0-6); HEMATOCRIT 31.4 % (36.0-47.0); HEMOGLOBIN 9.9 g/dL (12.0-15.5); HGB HCT DIFFERENCE -1.7; LYMPHOCYTES % (AUTO) 8.1 % (13-45); MEAN CORPUSCULAR HEMOGLOBIN 31.3 pg (27.0-33.4); MEAN CORPUSCULAR HGB CONC 31.6 g/dL (32.0-36.0); MEAN CORPUSCULAR VOLUME 99 fl (80-97); MONOCYTES % (AUTO) 6.5 % (3-13); RED BLOOD COUNT 3.17 10^6/uL (3.72-5.28); RED CELL DISTRIBUTION WIDTH 15.2 % (11.5-14.0); SEGMENTED NEUTROPHILS % (AUTO) 84.1 % (42-78); WHITE BLOOD COUNT 9.5 10^3/uL (4.0-10.5)
[2017-04-17 12:24] LABS: PROTHROMBIN TIME 15.3 SEC (11.4-15.4)
[2017-04-17 12:25] LABS: PARTIAL THROMBOPLASTIN TIME 40.9 SEC (23.5-35.8)
--- NOTE | 2017-04-17 12:27 | RADIOLOGY REPORT (SQ) ---
EXAM DESCRIPTION: CHEST SINGLE VIEW COMPLETED DATE/TIME: 04/17/2017 11:38 am REASON FOR STUDY: cough, SOB COMPARISON: 03/19/2017 EXAM PARAMETERS: NUMBER OF VIEWS: One view. TECHNIQUE: Single frontal radiographic view of the chest acquired. RADIATION DOSE: NA LIMITATIONS: None. FINDINGS: LUNGS AND PLEURA: Mild increased interstitial densities. Abnormal air space density in th e right base with differential including pneumonia in asymmetric pulmonary edema. Minimal right effu emigdio. No definite left effusion. MEDIASTINUM AND HILAR STRUCTURES: No masses. Contour normal. HEART AND VASCULAR STRUCTURES: Cardiac silhouette is mildly enlarged. There is mild vascular congest ion. BONES: No acute findings. HARDWARE: None in the chest. OTHER: No other significant finding. IMPRESSION: 1. Findings suggest mild congestive failure with pneumonia versus asymmetric pulmonary edema in the right base. TECHNICAL DOCUMENTATION: JOB ID: [id number]
[2017-04-17 12:43] LABS: ALANINE AMINOTRANSFERASE 13 U/L (9-52); ALBUMIN 3.4 g/dL (3.5-5.0); ALKALINE PHOSPHATASE 163 U/L (38-126); ANION GAP 17 (5-19); ASPARTATE AMINO TRANSFERASE 12 U/L (14-36); BILIRUBIN,DIRECT 0.9 mg/dL (0.0-0.4); BLOOD UREA NITROGEN 28 mg/dL (7-20); CALCIUM 8.7 mg/dL (8.4-10.2); CARBON DIOXIDE 21 mmol/L (22-30); CHLORIDE 97 mmol/L (98-107); CREATININE RESULT 3.51 mg/dL (0.52-1.25); GLUCOSE 88 mg/dL (75-110); MAGNESIUM 1.9 mg/dL (1.6-2.3); POTASSIUM 3.9 mmol/L (3.6-5.0); SODIUM 134.5 mmol/L (137-145); TOTAL PROTEIN 6.3 g/dL (6.3-8.2)
--- NOTE | 2017-04-17 12:45 | EKG REPORT ---
SEVERITY:- ABNORMAL ECG - SINUS RHYTHM FIRST DEGREE AV BLOCK BORDERLINE R WAVE PROGRESSION, ANTERIOR LEADS : Confirmed by: Kay Crook MD 17-Apr-2017 12:44:16
[2017-04-17 13:05] LABS: TROPONIN I 0.038 ng/mL
[2017-04-17 13:30] LABS: APPEARANCE,URINE CLOUDY; BILIRUBIN,URINE NEGATIVE (NEGATIVE); GLUCOSE, URINE NEGATIVE (NEGATIVE); KETONES,URINE NEGATIVE (NEGATIVE); LEUKOCYTE ESTERASE,URINE LARGE (NEGATIVE); NITRITE,URINE NEGATIVE (NEGATIVE); PROTEIN,URINE >=500 mg/dL (NEGATIVE); URINE SPECIFIC GRAVITY 1.015; UROBILINOGEN,URINE NEGATIVE mg/dL (<2.0)
[2017-04-17] MEDS ORDERED: FUROSEMIDE INJ/PF 40 MG/4 ML SDV IV ONE (14:05)
[2017-04-17 15:16] VITALS: BP 188/60
== END 2017-04-17 15:16 | disposition home or self-care (01) ==
LOC: ER 10:29
DX: I12.0 Hypertensive chronic kidney disease with stage 5 chronic kidney disease or end stage renal disease (principal); E11.22 Type 2 diabetes mellitus with diabetic chronic kidney disease; N18.6 End stage renal disease; Z99.2 Dependence on renal dialysis; N39.0 Urinary tract infection, site not specified; R74.8 Abnormal levels of other serum enzymes; R05 Cough; R06.02 Shortness of breath; I25.2 Old myocardial infarction; I25.10 Atherosclerotic heart disease of native coronary artery without angina pectoris; J44.9 Chronic obstructive pulmonary disease, unspecified; Z88.8 Allergy status to other drugs, medicaments and biological substances; Z87.01 Personal history of pneumonia (recurrent); Z79.2 Long term (current) use of antibiotics
CPT/HCPCS: 93005; 99285; 51701; 96374; 36415; 87086; 83735; 85025; 85610; 85730; 80053; 81001; 84484; 83605; 83880; 71010; 93010; J1940

== ENCOUNTER → 2017-04-19 | Outpatient (CLI) | payer MEDICARE, OTHER ==
--- NOTE | 2017-04-19 15:11 | RADIOLOGY REPORT (SQ) ---
EXAM DESCRIPTION: U/S NON-OB PELVIS LTD W/O DOP COMPLETED DATE/TIME: 04/19/2017 1:41 pm REASON FOR STUDY: RECURRENT URINARY TRACT INFECTIONS COMPARISON: None. TECHNIQUE: Ultrasound of the pelvis was performed to evaluate the patient's bladder. Patient has fr equent urinary tract infections. LIMITATIONS: Body habitus, empty urinary bladder FINDINGS: The urinary bladder was empty, and not identified on the transabdominal scan of the pelvis . IMPRESSION: Bladder decompressed, not visualized TECHNICAL DOCUMENTATION: JOB ID: [id number] [employer]- All Rights Reserved
== END ==
LOC: RAD 12:32
PROVIDERS: ATTEND Internal Medicine Nephrology
DX: N39.0 Urinary tract infection, site not specified (principal)
CPT/HCPCS: 76857

== ENCOUNTER 2017-04-24 07:51 | Day surgery (SDC) | payer MEDICARE, OTHER ==
[~2017-04-24 07:51] MED LIST: FENTANYL CITRATE INJ/PF 100 MCG/2 ML AMPUL ONE; LIDOCAINE 0.5% INJ-PF (5 MG/ML) 50 ML SDV ONE; MIDAZOLAM 2 MG/2 ML INJ ONE; PROPOFOL INJ 200 MG/20 ML VIAL IV ONE
[2017-04-24] MEDS ORDERED: HEPARIN SOD (PORCINE) 1,000 UNIT/ML 10 ML VIAL ONE (09:07)
[2017-04-24] MEDS ORDERED: MEPERIDINE HCL/PF INJ 25 MG/1 ML DISP.SYRIN IV PRN (09:10)
[2017-04-24] MEDS ORDERED: PROMETHAZINE HCL INJ 25 MG/1 ML VIAL IV PRN (09:10)
[2017-04-24] MEDS ORDERED: ONDANSETRON HCL INJ/PF 4 MG/2 ML SDV IV PRN (09:10)
[2017-04-24] MEDS ORDERED: FENTANYL CITRATE INJ/PF 100 MCG/2 ML AMPUL IV PRN ×2 (09:10)
[2017-04-24] MEDS ORDERED: DIPHENHYDRAMINE HCL 50 MG/ML VIAL IV PRN (09:10)
[2017-04-24] MEDS ORDERED: OXYCODONE-ACETAMINOPHEN 5-325 MG TABLET PO PRN (09:10)
--- NOTE | 2017-04-24 09:46 | PDOC DISCHARGE SUMMARY ---
Discharge Summary (SDC) - Discharge Final Diagnosis: #1 malfunctioning arteriovenous fistula. 2. Coronary artery disease. 3. Diabetes mellitus type 2. 4. Hypertension. Date of Surgery: 04/24/17 Discharge Date: 04/24/17 Condition: Fair Treatment or Instructions: Discharge home [after recovery per ASU criteria]. Diet , [renal],as tolerated, when fully awake advance as tolerated. Activities within moderation encouraged. Follow up in my office by appointment in about [1 month]. Call for appointment. Leave wounds [covered], [keep clean and dry, until hemodialysis. Hold of on school/work [until evaluation in office]. May shower [in 48 hrs], [try to keep operated area as dry as possible]. Discharge Diet: Other (Comments) - Renal Discharge Activity: Activity As Tolerated Report the Following to Your Physician Immediately: Shortness of Breath, Unusual Bleeding
--- NOTE | 2017-04-24 09:50 | Operative Report ---
Operative Report DATE OF SURGERY: 04/24/17 PREOPERATIVE DIAGNOSIS: #1 malfunctioning arteriovenous fistula. 2. Coronary artery disease. 3. Diabetes mellitus type 2. 4. Hypertension. POSTOPERATIVE DIAGNOSIS: #1 malfunctioning arteriovenous fistula. 2. Coronary artery disease. 3. Diabetes mellitus type 2. 4. Hypertension. OPERATION: 1. Needle access into fistula. 2. Angioplasty and fistula. 3. Angiogram and interpretation. SURGEON: CORTEZ RIGGINS RETORT COOLER: None ANESTHESIA: LMAC TISSUE REMOVED OR ALTERED: Not applicable. COMPLICATIONS: None ESTIMATED BLOOD LOSS: 2 mL. INTRAOPERATIVE FINDINGS: Of a well founded left arm transposed basilic vein fistula. Somewhat firm initially. Angioplasty confirmed the presence of stenosis about 80% of the adjacent lumen situated at about 20 cm. Just lateral to the chest wall. A second area of stenosis about 2 cm long at about 16 cm. Both of these resolved completely with angioplasty. Palpation of the fistula was normal after angioplasty. The risks of the arteriovenous circuit including the superior vena cava and subclavian looked satisfactory. On angiogram. PROCEDURE: After verifying the procedure and having obtained informed consent, the patient's left arm was prepared with Chlorhexidine and draped out with sterile linen. Local anesthesia infiltrated. Percutaneous access into the fistula ,[ antegrade], obtained about [6 cm] from the arteriovenous anastomosis using a micro puncture needle followed by micro puncture wire and then a micro puncture catheter. Angiogram demonstrated the aforementioned findings. Angioplasty was elected. A 0.035 [place] wire was inserted, and over this, a 7 Russian short introducer was placed, this was followed by a [8 mm ] angioplasty balloon . Angioplasty was Done using a 3 mils syringe with contrast. Inflating for 2 minutes. Repeat angiogram showed residual stenoses. A 9 mm angioplasty balloon was done for insertion at the culprit area and inflated using a 3 mils syringe. Completion angiogram demonstrated [satisfactory result]. The instrumentation was now withdrawn over pressure for 10 minutes. Dressings applied, procedure concluded. Exposure time:2.1 minutes: Radiation: 5 mcg/cm. Contrast: Isovue-300, low osmolality. DICTATING PHYSICIAN: CORTEZ HOGAN M.D. cc: CORTEZ HOGAN M.D. ([id number]) >>
[2017-04-24] MEDS ORDERED: OXYCODONE HCL IR 5 MG TABLET ONE (10:59)
[2017-04-24 13:19] VITALS: BP 156/69
--- NOTE | 2017-04-24 15:24 | RADIOLOGY REPORT (SQ) ---
EXAM DESCRIPTION: SHOULDER LEFT 2 OR MORE VIEWS; NO CHG FLUORO COMPLETED DATE/TIME: 04/24/2017 2:04 pm REASON FOR STUDY: PLASTY T82.858A STENOSIS OF OTHER VASCULAR PROSTH DEV/GRFT, INIT N18.6 END STAGE RENAL DISEASE COMPARISON: None. FLUOROSCOPY TIME: 2.1 minutes 13 series of digital images saved to PACS. TECHNIQUE: Intra-operative images acquired during surgical procedure to evaluate progress. NUMBER OF IMAGES: Cine fluoroscopic images. LIMITATIONS: None. FINDINGS: Imaging in fluoroscopy during left upper extremity dialysis access evaluation and plasty b y Dr. Mathis . Please refer to the operative report for further details. IMPRESSION: INTRA PROCEDURAL IMAGING ABOVE . COMMENT: Quality ID [id number]: Final reports for procedures using fluoroscopy that document radiation exp osure indices, or exposure time and number of fluorographic images (if radiation exposure indices are not available) Please consult full operative report of the attending physician for description of the procedure. TECHNICAL DOCUMENTATION: JOB ID: [id number] [employer]- All Rights Reserved
== END 2017-04-24 12:05 | disposition home or self-care (01) ==
LOC: OROUT 07:51
PROVIDERS: ATTEND Surgery
PROC: 057C3DZ Dilation of Left Basilic Vein with Intraluminal Device, Percutaneous Approach (ICD-10-PCS; principal; 2017-04-24 08:45)
DX: T82.858A Stenosis of other vascular prosthetic devices, implants and grafts, initial encounter (principal); Y83.2 Surgical operation with anastomosis, bypass or graft as the cause of abnormal reaction of the patient, or of later complication, without mention of misadventure at the time of the procedure; I13.2 Hypertensive heart and chronic kidney disease with heart failure and with stage 5 chronic kidney disease, or end stage renal disease; I50.9 Heart failure, unspecified; E11.22 Type 2 diabetes mellitus with diabetic chronic kidney disease; N18.6 End stage renal disease; Z99.2 Dependence on renal dialysis; J44.9 Chronic obstructive pulmonary disease, unspecified; D64.9 Anemia, unspecified; E78.00 Pure hypercholesterolemia, unspecified; Z96.642 Presence of left artificial hip joint; Z86.73 Personal history of transient ischemic attack (TIA), and cerebral infarction without residual deficits; Z85.42 Personal history of malignant neoplasm of other parts of uterus; Z79.899 Other long term (current) drug therapy; Z79.82 Long term (current) use of aspirin
CPT/HCPCS: 36415; 84132; 73030; 36901; C1725; C1752; C1894; Q9967; C1769; J2250; J1644 ×2; J3490; J2704; A9270; 01844; J3010

== ENCOUNTER → 2017-06-05 | Outpatient (CLI) | payer MEDICARE, OTHER ==
--- NOTE | 2017-06-05 10:45 | RADIOLOGY REPORT (SQ) ---
EXAM DESCRIPTION: CT ABD/PELVIS NO ORAL OR IV COMPLETED DATE/TIME: 06/05/2017 10:15 am REASON FOR STUDY: GROSS HEMATURIA (R31.0) R31.0 GROSS HEMATURIA COMPARISON: None. TECHNIQUE: CT scan of the abdomen and pelvis performed without intravenous or oral contrast. Images reviewed with lung, soft tissue, and bone windows. Reconstructed coronal and sagittal MPR images revi ewed. All images stored on PACS. All CT scanners at this facility use dose modulation, iterative reconstruction, and/or weight based d osing when appropriate to reduce radiation dose to as low as reasonably achievable (ALARA). [facility]: Dose Right [facility]: CareDose [facility]: Dose Right [facility]: Teradose 4D [facility]: Smart Bag Borrow or Steal RADIATION DOSE: Up-to-date CT equipment and radiation dose reduction techniques were employed. CTDIv ol: 5.4 mGy. DLP: 260 mGy-cm.mGy. LIMITATIONS: None. FINDINGS: LOWER CHEST: Cardiomegaly. Significant right pleural effusion minimal left pleural effusi on. NON-CONTRASTED LIVER, SPLEEN, ADRENALS: Evaluation limited by lack of IV contrast. No identified sign ificant masses. PANCREAS: No masses. No peripancreatic inflammatory changes. GALLBLADDER: Multiple very small calculi are present. There is no ductal dilatation. RIGHT KIDNEY AND URETER: No suspicious masses. Assessment limited by lack of IV contrast. Small int rarenal calculi are present. There is an 8 mm calculus in the proximal right ureter. Mild hydronep hrosis in the lower pole, suggesting a duplicated collecting system. LEFT KIDNEY AND URETER: No suspicious masses. Assessment limited by lack of IV contrast. Small nono bstructing intrarenal calculi are present. No hydronephrosis or hydroureter. AORTA AND RETROPERITONEUM: The descending aorta is tortuous. Dense atherosclerotic plaques are prese nt. Atherosclerosis is present the origin of the superior mesenteric artery and at the origin of the renal arteries. BOWEL AND PERITONEAL CAVITY: Considerable stool is present in the colon. A small amount of ascites i s present around the liver. APPENDIX: Not identified. PELVIS, BLADDER, AND ABDOMINAL WALL:The urinary bladder is nondistended. There is the appearance of thickening of the bladder wall, but this may merely be secondary to nondistention. BONES: There is marked scoliosis. There is marked anterior wedging of the L1 vertebral body. Degene rative disc changes and spondylosis are present in the thoracolumbar spine. OTHER: Subcutaneous edema is present. IMPRESSION: 1. Cardiomegaly with significant right pleural effusion and with subcutaneous edema. T here is a small amount of ascites. 2. There is hydronephrosis in the lower pole of the right kidney and there is an 8 mm calculus in th e proximal ureter as described. 3. There are intrarenal calculi bilaterally. 4. Considerable stool is present. 5. There is scoliosis, spondylosis, degenerative disc disease, marked L1 compression changes that do not appear to be acute. 6. Questionable thickening of the bladder wall. TECHNICAL DOCUMENTATION: JOB ID: [id number] Quality ID # [id number]: Final reports with documentation of one or more dose reduction techniques (e.g., Au tomated exposure control, adjustment of the mA and/or kV according to patient size, use of iterative reconstruction technique) 2010 [employer]- All Rights Reserved
== END ==
LOC: RAD 09:47
PROVIDERS: ATTEND Urology
DX: R31.0 Gross hematuria (principal)
CPT/HCPCS: 74176

== ENCOUNTER → 2017-06-06 | Outpatient (CLI) | payer MEDICARE, OTHER ==
--- NOTE | 2017-06-06 10:42 | WOMENS IMAGING REPORT ---
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 TECHNIQUE: Dual-Energy X-ray Absorptiometry (DEXA) of the AP Spine and Hip. LIMITATIONS: None. FINDINGS: LUMBAR SPINE: The bone mineral density (BMD) measured from L1-L4 in the AP projection correlates with a T-score of -3.2, which is osteoporosis as defined by the World Health Organization. HIP: The bone mineral density (BMD) measured in the left hip correlates with a T-score of -5.8 in the femo ral neck, which is osteoporosis as defined by the World Health Organization. IMPRESSION: 1. LUMBAR SPINE: OSTEOPOROSIS. 2. HIP: OSTEOPOROSIS. COMMENT: The World Health Organization defines low BMD as follows: T-score: Normal: Greater than -1.0 Osteopenia: Between -1.0 and -2.5 Osteoporosis: Less than -2.5 without fractures Established osteoporosis: Less than -2.5 with fractures In general, you may wish to consider: Diagnosis Treatment Follow-up DEXA Normal BMD Prevention 2-3 years Osteopenia Prevention/Therapy 1-2 years Osteoporosis Therapy Yearly TECHNICAL DOCUMENTATION: JOB ID: [id number] [employer]- All Rights Reserved
== END ==
LOC: WI 09:26
PROVIDERS: ATTEND Family Medicine
DX: M81.0 Age-related osteoporosis without current pathological fracture (principal)
CPT/HCPCS: 77080

== ENCOUNTER → 2017-06-07 | Outpatient (CLI) | payer MEDICARE, OTHER ==
--- NOTE | 2017-06-07 12:40 | RADIOLOGY REPORT (SQ) ---
EXAM DESCRIPTION: CHEST PA/LATERAL COMPLETED DATE/TIME: 06/07/2017 12:24 pm REASON FOR STUDY: PLEURAL EFFUSION, NOT ELSEWHERE CLASSIFIED COMPARISON: Chest film 06/04/2016, 01/22/2017, 03/07/2017, 03/19/2017, 04/17/2017 CT abdomen pelvis 06/05/2017 EXAM PARAMETERS: NUMBER OF VIEWS: two views TECHNIQUE: Digital Frontal and Lateral radiographic views of the chest acquired. RADIATION DOSE: NA LIMITATIONS: none FINDINGS: LUNGS AND PLEURA: Small right pleural effusion blunts the lateral costophrenic sulcus. Th is is similar compared to CT 06/05/2017, and is a new finding compared to 04/17/2017. Mild bibasilar atelectasis. No fluffy alveolar infiltrates worrisome for edema or pneumonia. No pneumothorax. MEDIASTINUM AND HILAR STRUCTURES: No masses or contour abnormalities. HEART AND VASCULAR STRUCTURES: Stable marked cardiomegaly BONES: Kyphosis at the thoracolumbar junction related to vertebra plana deformity at L1 HARDWARE: None in the chest. OTHER: No other significant finding. IMPRESSION: Small right pleural effusion, similar compared to CT abdomen pelvis 06/05/2017, new compar ed to 04/17/2017 Stable cardiomegaly TECHNICAL DOCUMENTATION: JOB ID: [id number] [employer]- All Rights Reserved
== END ==
LOC: OD 12:10
PROVIDERS: ATTEND Family Medicine
DX: J90 Pleural effusion, not elsewhere classified (principal)
CPT/HCPCS: 71020

== ENCOUNTER → 2017-06-15 | Outpatient (CLI) | payer MEDICARE, OTHER ==
--- NOTE | 2017-06-15 13:03 | RADIOLOGY REPORT (SQ) ---
EXAM DESCRIPTION: U/S ABDOMEN LIMITED W/O DOP COMPLETED DATE/TIME: 06/15/2017 10:57 am REASON FOR STUDY: GALLSTONE (K80.20) K80.20 CALCULUS OF GALLBLADDER W/O CHOLECYSTITIS W/O OBSTRUC COMPARISON: CT abdomen pelvis 06/05/2017 Abdominal ultrasound 05/19/2012 TECHNIQUE: Dynamic and static grayscale images acquired of the abdomen and recorded on PACS. Additio nal selected color Doppler and spectral images recorded. LIMITATIONS: Midline bowel gas FINDINGS: PANCREAS: Midline pancreas unremarkable LIVER: No masses. Echotexture normal. LIVER VASCULATURE: Normal directional flow of the main portal vein and hepatic veins. GALLBLADDER: Tiny stones layer in the dependent part of the gallbladder. Borderline gallbladder wall thickening. No pericholecystic fluid. Negative sonographic Velazquez's sign. ULTRASOUND-DETECTED VELAZQUEZ'S SIGN: Negative. INTRAHEPATIC DUCTS AND COMMON DUCT: CBD and intrahepatic ducts normal caliber. No filling defects. D istal most common duct not well seen. INFERIOR VENA CAVA: Normal flow. AORTA: No aneurysm. RIGHT KIDNEY: 7 cm in length, cortical atrophy with multiple shadowing foci in the medullary pyramid s. PERITONEAL AND RIGHT PLEURAL SPACE: No ascites. Moderate right pleural effusion OTHER: No other significant findings. IMPRESSION: Small stones in the gallbladder Atrophy right kidney TECHNICAL DOCUMENTATION: JOB ID: [id number] [employer]- All Rights Reserved
== END ==
LOC: RAD 09:33
PROVIDERS: ATTEND Family Medicine
DX: K80.20 Calculus of gallbladder without cholecystitis without obstruction (principal)
CPT/HCPCS: 76705

== ENCOUNTER → 2017-07-19 | Outpatient (CLI) | payer MEDICARE, OTHER ==
--- NOTE | 2017-07-19 09:48 | RADIOLOGY REPORT (SQ) ---
EXAM DESCRIPTION: CHEST PA/LATERAL COMPLETED DATE/TIME: 07/19/2017 9:26 am REASON FOR STUDY: SHORTNESS OF BREATH COMPARISON: Chest films 12/11/2016, 03/07/2017, 03/17/2017, 04/17/2017, 06/07/2017 CT abdomen pelvis 06/05/2017 CT chest 08/10/2015 EXAM PARAMETERS: NUMBER OF VIEWS: two views TECHNIQUE: Digital Frontal and Lateral radiographic views of the chest acquired. RADIATION DOSE: NA LIMITATIONS: none FINDINGS: LUNGS AND PLEURA: Pulmonary vascular congestion. Few Rojas lines at the bases indicating mild interstitial edema or fluid overload. Trace bilateral pleural effusions right greater than lef t. MEDIASTINUM AND HILAR STRUCTURES: No masses or contour abnormalities. HEART AND VASCULAR STRUCTURES: Stable marked cardiomegaly BONES: Osteoporotic with vertebra plana at L1. HARDWARE: None in the chest. OTHER: No other significant finding. IMPRESSION: Fluid overload or congestive failure TECHNICAL DOCUMENTATION: JOB ID: [id number] [employer]- All Rights Reserved
== END ==
LOC: OD 09:04
PROVIDERS: ATTEND Physician Assistant
DX: R06.02 Shortness of breath (principal)
CPT/HCPCS: 71020

== ENCOUNTER 2017-08-06 17:14 | Emergency (ER) | payer MEDICARE, OTHER ==
[2017-08-06] MEDS ORDERED: BACITRACIN ZINC OINTMENT 15 GM TP ONE (19:17)
--- NOTE | 2017-08-06 19:20 | ER Document Report ---
ED General - General Chief Complaint: Skin Tear(s) Stated Complaint: SKIN TEAR Time Seen by Provider: 08/06/17 19:17 Mode of Arrival: Wheelchair Information source: Patient, Relative Notes: Patient fell at home this before arrival. She was trying to get off of the toilet and became unsteady. It is not uncommon for the patient to have unsteadiness. As she fell her right forearm suffered a skin tear. No other significant injuries. The pain is mild and constant. It is worse when touched and better when left alone. There is some pain that radiates up the left arm. TRAVEL OUTSIDE OF THE [place] IN LAST 30 DAYS: No - Related Data Allergies/Adverse Reactions: rosuvastatin calcium [From Crestor] Allergy (Unknown, Verified 08/06/17 19:01) "Symptoms like the flu" Past Medical History - Social History Smoking Status: Unknown if Ever Smoked Chew tobacco use (# tins/day): No Frequency of alcohol use: None Drug Abuse: None Family History: Reviewed & Not Pertinent Patient has suicidal ideation: No Patient has homicidal ideation: No - Past Medical History Cardiac Medical History: Reports: Hx Congestive Heart Failure, Hx Coronary Artery Disease, Hx Heart Attack - PER EKG READING ON 03/25/14, Hx Hypercholesterolemia, Hx Hypertension Pulmonary Medical History: Reports: Hx COPD, Hx Pneumonia - Hx of 12/2014 Denies: Hx Asthma, Hx Bronchitis, Hx Tuberculosis Neurological Medical History: Denies: Hx Cerebrovascular Accident, Hx Seizures Endocrine Medical History: Reports: Hx Diabetes Mellitus Type 2 Renal/ Medical History: Reports: Hx End Stage Renal Disease, Hx Peritoneal Dialysis GI Medical History: Reports: Hx Gastroesophageal Reflux Disease Musculoskeltal Medical History: Reports Hx Arthritis Psychiatric Medical History: Denies: Hx Depression Traumatic Medical History: Reports: Hx Fractures - RECENT PELVIS Fx Past Surgical History: Reports: Hx Hysterectomy, Hx Orthopedic Surgery - left knee, Hx Vascular Surgery - Immunizations Hx Diphtheria, Pertussis, Tetanus Vaccination: Yes Hx Pneumococcal Vaccination: 07/29/16 Review of Systems - Review of Systems Constitutional: denies: Chills, Fever Cardiovascular: denies: Chest pain, Syncope Respiratory: denies: Cough, Hemoptysis Physical Exam - Vital signs Vitals: Temp Pulse Resp BP Pulse Ox 98.4 F 72 16 142/43 H 96 08/06/17 17:25 08/06/17 17:25 08/06/17 17:25 08/06/17 17:25 08/06/17 17:25 Interpretation: Normal - General General appearance: Appears well, Alert - Respiratory Respiratory status: No respiratory distress Chest status: Nontender Breath sounds: Normal Chest palpation: Normal - Cardiovascular Rhythm: Regular Heart sounds: Normal auscultation Murmur: No - Back Back: Normal, Nontender - Psychological Associated symptoms: Normal affect, Normal mood - Skin Skin Temperature: Warm Skin Moisture: Dry Skin Color: Normal, Other - Patient has a moderate sized skin tear to the left forearm. Bleeding is well controlled. Is not amenable to suturing. Course - Vital Signs Vital signs: Temp Pulse Resp BP Pulse Ox 98.4 F 72 16 142/43 H 96 08/06/17 17:25 08/06/17 17:25 08/06/17 17:25 08/06/17 17:25 08/06/17 17:25 Discharge - Discharge Clinical Impression: Skin tear Condition: Stable Disposition: HOME, SELF-CARE Instructions: Skin Tear ([facility])
[2017-08-06 19:38] VITALS: BP 157/52
== END 2017-08-06 19:38 | disposition home or self-care (01) ==
LOC: ER 17:14
DX: S51.812A Laceration without foreign body of left forearm, initial encounter (principal); W19.XXXA Unspecified fall, initial encounter
CPT/HCPCS: 99283; J3490

== ENCOUNTER 2017-08-28 10:21 | Day surgery (SDC) | payer MEDICARE, OTHER ==
[2017-08-28 10:16] LABS: HEMATOCRIT 38.9 % (36.0-47.0); HEMOGLOBIN 12.6 g/dL (12.0-15.5); HGB HCT DIFFERENCE -1.1; MEAN CORPUSCULAR HEMOGLOBIN 31.7 pg (27.0-33.4); MEAN CORPUSCULAR HGB CONC 32.3 g/dL (32.0-36.0); MEAN CORPUSCULAR VOLUME 98 fl (80-97); RED BLOOD COUNT 3.97 10^6/uL (3.72-5.28); WHITE BLOOD COUNT 16.1 10^3/uL (4.0-10.5)
[2017-08-28 10:35] LABS: ANION GAP 17 (5-19); BLOOD UREA NITROGEN 38 mg/dL (7-20); CALCIUM 9.7 mg/dL (8.4-10.2); CARBON DIOXIDE 22 mmol/L (22-30); CHLORIDE 100 mmol/L (98-107); CREATININE RESULT 3.15 mg/dL (0.52-1.25); GLUCOSE 95 mg/dL (75-110); POTASSIUM 4.9 mmol/L (3.6-5.0); SODIUM 138.8 mmol/L (137-145)
[2017-08-28] MEDS ORDERED: DIAZEPAM 5 MG TABLET ONE (11:54)
[2017-08-28] MEDS ORDERED: OXYCODONE-ACETAMINOPHEN 5-325 MG TABLET ONE (11:55)
[2017-08-28] MEDS ORDERED: FENTANYL CITRATE INJ/PF 100 MCG/2 ML AMPUL ONE (12:04)
[2017-08-28] MEDS ORDERED: HEPARIN SOD (PORCINE) 5,000 UNIT/ML 1 ML SYRINGE ONE (12:04)
[2017-08-28] MEDS ORDERED: LIDOCAINE 0.5% INJ-PF (5 MG/ML) 50 ML SDV ONE ×2 (12:04→14:25)
[2017-08-28] MEDS ORDERED: MIDAZOLAM 2 MG/2 ML INJ ONE (12:04)
--- NOTE | 2017-08-28 13:37 | PDOC DISCHARGE SUMMARY ---
Discharge Summary ([facility]C) - Discharge Final Diagnosis: #1 malfunctioning arteriovenous fistula, left transposed basilic vein. 2. End-stage renal disease on hemodialysis. 3. Coronary artery disease. 4. Diabetes mellitus type 2. 5. Hypertension. Date of Surgery: 08/28/17 Discharge Date: 08/28/17 Condition: Fair Treatment or Instructions: Discharge home [after recovery per ASU criteria]. Diet , [renal],as tolerated, when fully awake advance as tolerated. Activities within moderation encouraged. Follow up in my office by appointment in about 1 month. Call for appointment. Leave wounds [covered], [keep clean and dry, until hemodialysis. Meds per med rec. May shower [in 48 hrs], [try to keep operated area as dry as possible]. Referrals: MC GONZALEZ MD [Primary Care Provider] - Discharge Diet: Other (Comments) - Renal, diabetic. Discharge Activity: Activity As Tolerated Report the Following to Your Physician Immediately: Shortness of Breath, Unusual Bleeding
--- NOTE | 2017-08-28 13:42 | Operative Report ---
Operative Report DATE OF SURGERY: 08/28/17 PREOPERATIVE DIAGNOSIS: #1 malfunctioning arteriovenous fistula, left transposed basilic vein. 2. End-stage renal disease on hemodialysis. 3. Coronary artery disease. 4. Diabetes mellitus type 2. 5. Hypertension. POSTOPERATIVE DIAGNOSIS: #1 malfunctioning arteriovenous fistula, left transposed basilic vein. Postangioplasty. 2. End-stage renal disease on hemodialysis. 3. Coronary artery disease. 4. Diabetes mellitus type 2. 5. Hypertension. OPERATION: 1. Needle introduction into arteriovenous fistula. 2. Central angioplasty subclavian. Drug-eluting balloon. 3. Fistula angioplasty, swing segment. Drug-eluting balloon. 4. Angiogram and interpretation. SURGEON: CORTEZ RIGGINS BIOMEDICAL ENGINEERING AIDE: None ANESTHESIA: Moderate Sedation TISSUE REMOVED OR ALTERED: Not applicable. COMPLICATIONS: None ESTIMATED BLOOD LOSS: 5 mL. INTRAOPERATIVE FINDINGS: Of a well founded left arm transposed basilic vein fistula. 90% stenosis noted at the transition from basilic to brachial vein. Somewhat irregular for another 3 cm cephalad to that. Stenosis in the subclavian estimated to be about 50% of the adjacent lumen. Subclavian stenosis completely resolved. Stenosis of the AV fistula resolved with 85% residual stenosis. 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 This persisted. PROCEDURE: PROCEDURE: After verifying the procedure and having obtained informed consent, the patient's left arm was prepared with Chlorhexidine and draped out with sterile linen. Local anesthesia infiltrated. Percutaneous access into the fistula ,[ antegrade], obtained about [4 cm] from the arteriovenous anastomosis using a micro puncture needle followed by micro puncture wire and then a micro puncture catheter. A 0.035 [place] wire was inserted, and over this, a 7 [place] short introducer was placed, Angiogram demonstrated the aforementioned findings. Angioplasty was elected. this was followed by a [8-mm] angioplasty balloon . Angioplasty was Done at the subclavian area. Inflating with a 3 mils syringe for 2 minutes.]. Angiogram demonstrated resolution. The balloon was withdrawn and angioplasty done in the culprit lesion in the fistula. The result was acceptable with slight residual stenosis at the fistula. A drug-eluting balloon, 8 mm in diameter was now inserted according to printed circuit board panels developer's instructions and placed over the subclavian area. It was inflated using an insufflator for 3 minutes at 10 magdiel. It was withdrawn and serially inflated at the AV fistula.. A 9 mm drug-eluting balloon was now inserted and placed over the culprit area and the arteriovenous fistula. It was inflated to 10 magdiel and inflation sustained for 3 minutes. Deflation was done and angiogram demonstrated some residual stenosis. The balloon was reinflated for an additional 2 minutes. Completion angiogram demonstrated [satisfactory result]. The instrumentation was now withdrawn over and pressure for 10 minutes. Dressings applied, procedure concluded. Exposure time: 2.2 minutes Radiation: 5.94 mg/cm Contrast: 25 mils of Isovue-300, low osmolality. DICTATING PHYSICIAN: CORTEZ HOGAN M.D. cc: CORTEZ HOGAN M.D. ([id number]) >>
[2017-08-28 15:44] VITALS: BP 162/57
--- NOTE | 2017-08-28 16:36 | RADIOLOGY REPORT (SQ) ---
EXAM DESCRIPTION: FISTULAGRAM W/PLASTY COMPLETED DATE/TIME: 08/28/2017 3:59 pm REASON FOR STUDY: T82.858A T82.858A STENOSIS OF OTHER VASCULAR PROSTH DEV/GRFT, INIT Z01.818 ENCOU NTER FOR OTHER PREPROCEDURAL EXAMINATION COMPARISON: None. FLUOROSCOPY TIME: 2.2 minutes. 23 images saved to PACS. TECHNIQUE: Intra-operative images acquired during surgical procedure to evaluate progress. NUMBER OF IMAGES: 23 images. LIMITATIONS: None. FINDINGS: Imaging in fluoroscopy during left upper extremity dialysis access evaluation and plasty b y Dr. Mathis . Please refer to the operative report for further details. IMPRESSION: INTRA PROCEDURAL IMAGING ABOVE . COMMENT: Quality ID [id number]: Final reports for procedures using fluoroscopy that document radiation exp osure indices, or exposure time and number of fluorographic images (if radiation exposure indices are not available) Please consult full operative report of the attending physician for description of the procedure. TECHNICAL DOCUMENTATION: JOB ID: [id number] [employer]- All Rights Reserved
== END 2017-08-28 15:29 | disposition home or self-care (01) ==
LOC: SC 10:21
PROVIDERS: ATTEND Surgery
PROC: 057C3DZ Dilation of Left Basilic Vein with Intraluminal Device, Percutaneous Approach (ICD-10-PCS; principal; 2017-08-28)
DX: T82.858A Stenosis of other vascular prosthetic devices, implants and grafts, initial encounter (principal); Y83.2 Surgical operation with anastomosis, bypass or graft as the cause of abnormal reaction of the patient, or of later complication, without mention of misadventure at the time of the procedure; E11.22 Type 2 diabetes mellitus with diabetic chronic kidney disease; I12.0 Hypertensive chronic kidney disease with stage 5 chronic kidney disease or end stage renal disease; N18.6 End stage renal disease; I25.10 Atherosclerotic heart disease of native coronary artery without angina pectoris; Z96.652 Presence of left artificial knee joint; E03.9 Hypothyroidism, unspecified; E78.00 Pure hypercholesterolemia, unspecified; Z88.8 Allergy status to other drugs, medicaments and biological substances; Z85.42 Personal history of malignant neoplasm of other parts of uterus; Z79.899 Other long term (current) drug therapy; Z79.82 Long term (current) use of aspirin
CPT/HCPCS: 36415; 85027; 80048; 36902; C1725; Q9967; C1769; J1644 ×2; A9270 ×2; J3490; 2623; C2623; J2250; J3010

== ENCOUNTER 2018-03-18 13:24 | Inpatient (IN) | payer MEDICARE, OTHER ==
--- NOTE | 2018-03-18 15:08 | RADIOLOGY REPORT (SQ) ---
EXAM DESCRIPTION: CHEST SINGLE VIEW COMPLETED DATE/TIME: 03/18/2018 2:28 pm REASON FOR STUDY: Dyspnea COMPARISON: Two-view chest 07/19/2017, 06/07/2017, 04/17/2017 EXAM PARAMETERS: NUMBER OF VIEWS: One view. TECHNIQUE: Single frontal radiographic view of the chest acquired. RADIATION DOSE: NA LIMITATIONS: None. FINDINGS: LUNGS AND PLEURA: Trace bilateral pleural effusions are present unchanged from 07/19/2017. There is right basilar airspace disease, atelectasis versus pneumonia. Left lung grossly clear. No pneumothorax MEDIASTINUM AND HILAR STRUCTURES: No masses. Contour normal. HEART AND VASCULAR STRUCTURES: Moderate cardiomegaly BONES: Osteoporotic HARDWARE: Surgical clips left upper arm for left upper extremity dialysis access OTHER: No other significant finding. IMPRESSION: Trace bilateral pleural effusions Mild right basilar airspace disease atelectasis versus pneumonia TECHNICAL DOCUMENTATION: JOB ID: [id number] [employer]- All Rights Reserved Reading location - IP/workstation name: [email or web address]
[2018-03-18 16:10] LABS: HEMATOCRIT 30.1 % (36.0-47.0); HEMOGLOBIN 9.4 g/dL (12.0-15.5); MEAN CORPUSCULAR HEMOGLOBIN 30.2 pg (27.0-33.4); MEAN CORPUSCULAR HGB CONC 31.2 g/dL (32.0-36.0); MEAN CORPUSCULAR VOLUME 97 fl (80-97); PLATELET COUNT 534 10^3/uL (150-450); RED BLOOD COUNT 3.11 10^6/uL (3.72-5.28); RED CELL DISTRIBUTION WIDTH 17.7 % (11.5-14.0); WHITE BLOOD COUNT 27.5 10^3/uL (4.0-10.5)
[2018-03-18 16:33] LABS: ABSOLUTE LYMPHOCYTES# (MANUAL) 0.6 10^3/uL (0.5-4.7); ABSOLUTE MONOCYTES # (MANUAL) 1.1 10^3/uL (0.1-1.4); ABSOLUTE NEUTROPHILS# (MANUAL) 25.9 10^3/uL (1.7-8.2); BASOPHILS % (MANUAL) 0 % (0-2); EOSINOPHILS % (MANUAL) 0 % (0-6); LYMPHOCYTES % (MANUAL) 2 % (13-45); MONOCYTES % (MANUAL) 4 % (3-13); SEGMENTED NEUTROPHILS % (MAN) 94 % (42-78); TOTAL CELLS COUNTED 100
[2018-03-18 16:35] LABS: ANISOCYTOSIS 1+; OVALOCYTES SLIGHT; PLATELET CLUMPS PRESENT; PLATELET COMMENT INCREASED; POIKILOCYTOSIS SLIGHT; POLYCHROMASIA 1+; TOXIC GRANULATION SLIGHT
[2018-03-18] MEDS ORDERED: VANCOMYCIN HCL INJ 1000 MG VIAL IV ONE (17:07)
[2018-03-18 17:29] LABS: ALANINE AMINOTRANSFERASE 13 U/L (9-52); ALBUMIN 3.3 g/dL (3.5-5.0); ALKALINE PHOSPHATASE 132 U/L (38-126); ASPARTATE AMINO TRANSFERASE 8 U/L (14-36); BLOOD UREA NITROGEN 49 mg/dL (7-20); CARBON DIOXIDE 21 mmol/L (22-30); CHLORIDE 97 mmol/L (98-107); GLUCOSE 80 mg/dL (75-110); POTASSIUM 4.5 mmol/L (3.6-5.0); TOTAL PROTEIN 6.3 g/dL (6.3-8.2)
[2018-03-18 17:35] LABS: SODIUM 137.3 mmol/L (137-145)
[2018-03-18 17:37] LABS: ANION GAP 19 (5-19)
[2018-03-18] MEDS ORDERED: ACETAMINOPHEN 325 MG TABLET PO PRN (18:07)
--- NOTE | 2018-03-18 18:11 | ER Document Report ---
ED General - General Chief Complaint: Respiratory Distress Stated Complaint: SHORTNESS OF BREATH Time Seen by Provider: 03/18/18 14:00 TRAVEL OUTSIDE OF THE [place] IN LAST 30 DAYS: No - HPI Notes: 87-year-old female, end-stage renal disease, on dialysis, who presents with difficulty breathing. Patient has not missed dialysis, brought with dyspnea and relative hypoxia on her normal basal 2 L oxygen nasal cannula. Some equivocal chest pain, nonradiating. Gradual onset of symptoms. No fever. No other modifying factors, no other associated symptoms, no other provocative or palliative factors. - Related Data Allergies/Adverse Reactions: rosuvastatin calcium [From Crestor] Allergy (Unknown, Verified 08/06/17 19:01) "Symptoms like the flu" Past Medical History - Social History Smoking Status: Never Smoker Family History: Reviewed & Not Pertinent Patient has suicidal ideation: No Patient has homicidal ideation: No - Past Medical History Cardiac Medical History: Reports: Hx Congestive Heart Failure, Hx Coronary Artery Disease, Hx Heart Attack - PER EKG READING ON 03/25/14, Hx Hypercholesterolemia, Hx Hypertension Pulmonary Medical History: Reports: Hx COPD, Hx Pneumonia - Hx of 12/2014 Denies: Hx Asthma, Hx Bronchitis, Hx Tuberculosis Neurological Medical History: Denies: Hx Cerebrovascular Accident, Hx Seizures Endocrine Medical History: Reports: Hx Diabetes Mellitus Type 2 Renal/ Medical History: Reports: Hx End Stage Renal Disease. Denies: Hx Peritoneal Dialysis GI Medical History: Reports: Hx Gastroesophageal Reflux Disease Musculoskeltal Medical History: Reports Hx Arthritis Psychiatric Medical History: Denies: Hx Depression Traumatic Medical History: Reports: Hx Fractures - RECENT PELVIS Fx Past Surgical History: Reports: Hx Hysterectomy, Hx Orthopedic Surgery - left knee, Hx Vascular Surgery - Immunizations Hx Diphtheria, Pertussis, Tetanus Vaccination: Yes Hx Pneumococcal Vaccination: 07/29/16 Review of Systems - Review of Systems Notes: Review of systems as in the history of present illness, otherwise negative. Physical Exam - Vital signs Vitals: Pulse Ox 100 03/18/18 13:48 - Notes Notes: General: Well developed . Chronically ill in appearance. HEENT: Normocephalic, atraumatic. Pupils equal round reactive to light. No JVD. Chest: No trauma. Respiratory: Poor air exchange, decreased excursion. Cardiac: Regular rhythm. No murmurs or gallops. Abdomen: Soft, benign. Nondistended. Nontender. Back: No asymmetry or gross abnormality. Motor: Grossly normal power and tone. Neurologic: Alert, nonfocal. Cranial nerves II-12 are intact. Sensation intact. Vascular: Well perfused. Normal peripheral pulses. Skin: N significant rashes Course - Re-evaluation Re-evalutation: 03/19/18 19:07 87-year-old female who presents with the after mentioned symptoms, consider underlying pneumonia, failure, less likely volume overload. Plan to proceed with basic labs, EKG, reassess. Labs reviewed, marked leukocytosis is noted. Chemistry showed pre-existing renal failure with elevated BUN and creatinine. Urine is pending. Ultras are pending. Patient is improved in terms of her work of breathing, oxygenation is improved. Her chest x-ray shows what may be a right lower lobe infiltrate. Patient was treated presumptively for healthcare associated pneumonia, given cefepime and vancomycin, admitted to Dr. Zamorano for further evaluation and workup. - Vital Signs Vital signs: Temp Pulse Resp BP Pulse Ox 98.9 F 76 16 124/42 L 99 03/19/18 15:15 03/19/18 15:15 03/19/18 15:15 03/19/18 15:15 03/19/18 15:15 - Laboratory Result Diagrams: 03/19/18 07:39 03/19/18 05:46 Laboratory results interpreted by me: 03/18/18 03/18/18 03/18/18 15:49 16:40 18:05 WBC 27.5 H RBC 3.11 L Hgb 9.4 L Hct 30.1 L MCHC 31.2 L RDW 17.7 H Plt Count 534 H Seg Neuts % (Manual) 94 H Lymphocytes % (Manual) 2 L Abs Neuts (Manual) 25.9 H Chloride 97 L Carbon Dioxide 21 L BUN 49 H Creatinine 3.88 H Est GFR ( Amer) 13 L Est GFR (Non-Af Amer) 11 L Direct Bilirubin 1.0 H AST 8 L Alkaline Phosphatase 132 H Albumin 3.3 L Urine Protein 100 H Urine Bilirubin SMALL H Ur Leukocyte Esterase LARGE H Discharge - Discharge Clinical Impression: Pneumonia Qualifiers: Pneumonia type: due to unspecified organism Laterality: right Lung location: unspecified part of lung Qualified Code(s): J18.9 - Pneumonia, unspecified organism Condition: Serious Disposition: ADMITTED INPATIENT Admitting Provider: Jaun Unit Admitted: [facility]
[2018-03-18] MEDS ORDERED: HYDRALAZINE HCL INJ/PF 20 MG/1 ML SDV IV PRN (18:15)
[2018-03-18] MEDS ORDERED: VANCOMYCIN HCL 0 MG in DEXTROSE 5%-WATER 250 ML IV NR (18:15)
[2018-03-18] MEDS ORDERED: DEXTROSE 50%-WATER 25 GM/50 ML DISP.SYRIN IV PRN (18:18)
[2018-03-18] MEDS ORDERED: INSULIN LISPRO 100 UNIT/ML 3 ML VIAL SUBCUT PRN (18:18)
[2018-03-18] MEDS ORDERED: DEXTROSE 40% GEL 15 GM TUBE PO PRN ×2 (18:18)
[2018-03-18 18:32] LABS: APPEARANCE,URINE CLOUDY; BILIRUBIN,URINE SMALL (NEGATIVE); COLOR,URINE YELLOW; GLUCOSE, URINE NEGATIVE (NEGATIVE); KETONES,URINE NEGATIVE (NEGATIVE); LEUKOCYTE ESTERASE,URINE LARGE (NEGATIVE); NITRITE,URINE NEGATIVE (NEGATIVE); PROTEIN,URINE 100 mg/dL (NEGATIVE); URINE SPECIFIC GRAVITY 1.019; UROBILINOGEN,URINE NEGATIVE mg/dL (<2.0)
[2018-03-18] MEDS: IPRATROPIUM/ALBUTEROL 0.5-2.5 MG/3 ML AMPUL NEB SCH (20:12)
[2018-03-18] MEDS ORDERED: VANCOMYCIN HCL 1,000 MG in DEXTROSE 5%-WATER 250 ML IV ONE (21:30)
[2018-03-18] MEDS ORDERED: FAMOTIDINE INJ/PF 20 MG/2 ML SDV IV SCH (22:00)
[2018-03-18] MEDS ORDERED: ONDANSETRON 4 MG TAB.RAPDIS PO PRN (22:17)
[2018-03-18] MEDS ORDERED: POLYETHYLENE GLYCOL 3350 POWDER 17 GM/1 PACKET PO PRN (22:17)
[2018-03-18] MEDS ORDERED: LUBIPROSTONE 24 MCG CAPSULE PO PRN (22:17)
[2018-03-18] MEDS ORDERED: FUROSEMIDE 40 MG TABLET PO ONE (22:45)
[2018-03-18] MEDS: METHOCARBAMOL 500 MG TABLET PO PRN (22:47)
[2018-03-18] MEDS: OXYCODONE HCL IR 5 MG TABLET PO PRN (22:47)
[2018-03-18] MEDS: GUAIFENESIN 600 MG TABLET.SA PO SCH (22:48)
[2018-03-18] MEDS: FAMOTIDINE INJ/PF 20 MG/2 ML SDV IV SCH (22:48)
[2018-03-18] MEDS: HEPARIN SOD (PORCINE) 5,000 UNIT/ML 1 ML SYRINGE SUBCUT SCH (22:49)
[2018-03-19] MEDS: CEFEPIME 2 GM/D5W RTU 2 GM/50 ML RTUPB IV SCH (00:29)
[2018-03-19] MEDS: CLONIDINE HCL 0.1 MG TABLET PO SCH ×3 (05:18→23:11)
[2018-03-19] MEDS: LEVOTHYROXINE SODIUM 0.05 MG TABLET PO SCH (05:18)
[2018-03-19] MEDS: LANSOPRAZOLE 30 MG TAB.RAP.DR PO SCH (05:18)
[2018-03-19] MEDS: HEPARIN SOD (PORCINE) 5,000 UNIT/ML 1 ML SYRINGE SUBCUT SCH ×2 (05:19→14:05)
[2018-03-19 06:53] LABS: ALANINE AMINOTRANSFERASE 9 U/L (9-52); ALBUMIN 3.7 g/dL (3.5-5.0); ALKALINE PHOSPHATASE 137 U/L (38-126); ASPARTATE AMINO TRANSFERASE 12 U/L (14-36); BILIRUBIN,DIRECT 1.3 mg/dL (0.0-0.4); BILIRUBIN,TOTAL 1.3 mg/dL (0.2-1.3); BLOOD UREA NITROGEN 58 mg/dL (7-20); CALCIUM 9.7 mg/dL (8.4-10.2); GLUCOSE 78 mg/dL (75-110); POTASSIUM 5.1 mmol/L (3.6-5.0); TOTAL PROTEIN 7.1 g/dL (6.3-8.2)
[2018-03-19 06:59] LABS: CARBON DIOXIDE 20 mmol/L (22-30); CHLORIDE 96 mmol/L (98-107); SODIUM 139.8 mmol/L (137-145)
[2018-03-19 07:27] LABS: ANION GAP 24 (5-19)
[2018-03-19 07:56] LABS: HEMATOCRIT 36.8 % (36.0-47.0); MEAN CORPUSCULAR HEMOGLOBIN 30.5 pg (27.0-33.4); MEAN CORPUSCULAR HGB CONC 31.2 g/dL (32.0-36.0); MEAN CORPUSCULAR VOLUME 98 fl (80-97); PLATELET COUNT 358 10^3/uL (150-450); RED BLOOD COUNT 3.77 10^6/uL (3.72-5.28); RED CELL DISTRIBUTION WIDTH 18.3 % (11.5-14.0); WHITE BLOOD COUNT 18.4 10^3/uL (4.0-10.5)
[2018-03-19] MEDS: SEVELAMER HCL 2400 MG PO SCH ×2 (08:24→13:07)
[2018-03-19] MEDS: IPRATROPIUM/ALBUTEROL 0.5-2.5 MG/3 ML AMPUL NEB SCH ×3 (08:27→20:28)
[2018-03-19 08:43] LABS: HEMOGLOBIN 11.5 g/dL (12.0-15.5)
[2018-03-19 08:45] LABS: ABSOLUTE LYMPHOCYTES# (MANUAL) 0.6 10^3/uL (0.5-4.7); ABSOLUTE MONOCYTES # (MANUAL) 0.7 10^3/uL (0.1-1.4); ABSOLUTE NEUTROPHILS# (MANUAL) 16.9 10^3/uL (1.7-8.2); BAND NEUTROPHILS % (MANUAL) 3 % (3-5); BASOPHILS % (MANUAL) 0 % (0-2); EOSINOPHILS % (MANUAL) 1 % (0-6); LYMPHOCYTES % (MANUAL) 3 % (13-45); MONOCYTES % (MANUAL) 4 % (3-13); SEGMENTED NEUTROPHILS % (MAN) 89 % (42-78); TOTAL CELLS COUNTED 100
[2018-03-19 08:46] LABS: ANISOCYTOSIS 1+; OVALOCYTES 1+; PLATELET COMMENT ADEQUATE; POIKILOCYTOSIS 1+; TOXIC VACUOLATION PRESENT
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
[2018-03-19] MEDS ORDERED: DOCUSATE SODIUM 100 MG CAPSULE PO PRN (10:00)
[2018-03-19] MEDS: GUAIFENESIN 600 MG TABLET.SA PO SCH ×2 (10:16→22:50)
[2018-03-19] MEDS: ASPIRIN 81 MG TABLET, ENT COATED PO SCH (10:16)
[2018-03-19] MEDS: FUROSEMIDE 40 MG TABLET PO SCH ×2 (10:16→17:39)
[2018-03-19] MEDS: CITALOPRAM HYDROBROMIDE 20 MG TABLET PO SCH (10:17)
[2018-03-19] MEDS: AMLODIPINE BESYLATE 10 MG TABLET PO SCH (10:17)
[2018-03-19] MEDS: ALLOPURINOL 100 MG TABLET PO SCH (10:17)
--- NOTE | 2018-03-19 11:53 | PDOC PROGRESS REPORT ---
Subjective Progress Note for:: 03/19/18 Subjective:: Patient is currently doing much better this morningPatient's denied any chest pain denied any shortness of the breath patient's white count is also coming down Reason For Visit: PNEUMONIA t82.858a Physical Exam Vital Signs: Temp Pulse Resp BP Pulse Ox 97.6 F 73 16 130/33 H 100 03/19/18 07:07 03/19/18 08:27 03/19/18 08:27 03/19/18 07:07 03/19/18 07:07 Intake & Output 03/18/18 03/19/18 03/20/18 06:59 06:59 06:59 Intake Total 550 Output Total 0 Balance 550 Weight 43.9 kg General appearance: PRESENT: no acute distress, well-developed, well-nourished Head exam: PRESENT: atraumatic, normocephalic Eye exam: PRESENT: conjunctiva pink, EOMI, PERRLA. ABSENT: scleral icterus Ear exam: PRESENT: normal external ear exam Mouth exam: PRESENT: moist, tongue midline Neck exam: PRESENT: full ROM. ABSENT: carotid bruit, JVD, lymphadenopathy, thyromegaly Respiratory exam: PRESENT: clear to auscultation irma Cardiovascular exam: PRESENT: RRR. ABSENT: diastolic murmur, rubs, systolic murmur Pulses: PRESENT: normal dorsalis pedis pul, +2 pedal pulses bilateral Vascular exam: PRESENT: normal capillary refill GI/Abdominal exam: PRESENT: normal bowel sounds, soft. ABSENT: distended, guarding, mass, organolmegaly, rebound, tenderness Rectal exam: PRESENT: deferred Extremities exam: ABSENT: pedal edema Neurological exam: PRESENT: alert, awake, oriented to person, oriented to place , oriented to time, oriented to situation, CN II-XII grossly intact. ABSENT: motor sensory deficit Psychiatric exam: PRESENT: appropriate affect, normal mood. ABSENT: homicidal ideation, suicidal ideation Skin exam: PRESENT: dry, intact, warm. ABSENT: cyanosis, rash Results Laboratory Results: 03/19/18 07:39 03/19/18 05:46 03/19/18 03/19/18 03/19/18 05:46 05:46 07:39 WBC Cancelled 18.4 H RBC Cancelled 3.77 Hgb Cancelled 11.5 L D Hct Cancelled 36.8 MCV Cancelled 98 H MCH Cancelled 30.5 MCHC Cancelled 31.2 L RDW Cancelled 18.3 H Plt Count Cancelled 358 Seg Neutrophils % Cancelled Not Reportable Lymphocytes % Cancelled Not Reportable Monocytes % Cancelled Not Reportable Eosinophils % Cancelled Not Reportable Basophils % Cancelled Not Reportable Absolute Neutrophils Cancelled Not Reportable Absolute Lymphocytes Cancelled Not Reportable Absolute Monocytes Cancelled Not Reportable Absolute Eosinophils Cancelled Not Reportable Absolute Basophils Cancelled Not Reportable Sodium 139.8 Potassium 5.1 H Chloride 96 L Carbon Dioxide 20 L Anion Gap 24 H BUN 58 H Creatinine 4.43 H Est GFR ( Amer) 11 L Est GFR (Non-Af Amer) 9 L Glucose 78 Calcium 9.7 Total Bilirubin 1.3 AST 12 L ALT 9 Alkaline Phosphatase 137 H Total Protein 7.1 Albumin 3.7 Impressions: Chest X-Ray 03/18/18 14:06 IMPRESSION: Trace bilateral pleural effusions Mild right basilar airspace disease atelectasis versus pneumonia Assessment & Plan - Diagnosis (1) Pneumonia Qualifiers: Qualified Code(s): J18.9 - Pneumonia, unspecified organism Is this a current diagnosis for this admission?: Yes Plan: Continues IV antibiotic (2) Acute respiratory distress Is this a current diagnosis for this admission?: Yes Plan: Currently all resolved after the BiPAP (3) Chronic obstructive pulmonary disease Qualifiers: Qualified Code(s): J43.9 - Emphysema, unspecified Is this a current diagnosis for this admission?: Yes Plan: Continues to nebulizer treatments (4) Dialysis AV fistula malfunction Qualifiers: Qualified Code(s): T82.590A - Other mechanical complication of surgically created arteriovenous fistula, initial encounter Is this a current diagnosis for this admission?: Yes Plan: As per discussed with Dr. Edilson Navarro will be scheduled tomorrow after the dialysisPatients remain afebrile (5) End stage renal disease on dialysis Is this a current diagnosis for this admission?: Yes Plan: Consult Dr. Rodriguez nephrology (6) Hypertension Qualifiers: Qualified Code(s): I10 - Essential (primary) hypertension Is this a current diagnosis for this admission?: Yes Plan: Continues to current medications (7) CAD (coronary artery disease) Is this a current diagnosis for this admission?: Yes Plan: Currently stable (8) Diabetes mellitus Is this a current diagnosis for this admission?: Yes Plan: Continues to current sliding scale (9) CHF (congestive heart failure) Is this a current diagnosis for this admission?: Yes Plan: Continues to hemodialysis and the Lasix (10) Dementia Qualifiers: Qualified Code(s): F03.90 - Unspecified dementia without behavioral disturbance Is this a current diagnosis for this admission?: Yes - Time Time Spent with patient: 15-24 minutes Medications reviewed and adjusted accordingly: Yes Anticipated discharge: Home Within: Other - Inpatient Certification Medical Necessity: Need Close Monitoring Due to Risk of Patient Decompensation, Need for IV Antibiotics Post Hospital Care: D/C Ed Transporter Documentation - Plan Summary Plan Summary: Continues to IV antibioticThis with the daughter on the bedside regarding the patient's current conditions
[2018-03-19] MEDS: OXYCODONE HCL IR 5 MG TABLET PO PRN ×2 (14:51→22:51)
--- NOTE | 2018-03-19 15:48 | PDOC CONSULTATION ---
Consultation Consult Date: 03/19/18 Consult reason:: For hemodialysis. History of Present Illness Admission Date/PCP: 03/18/18 18:50 [facility] GONZALEZ MD History of Present Illness: DAVID FLETCHER is a 87 year old female with a history of hypertension, Diastolic congestive heart failure, COPD and ESRD on hemodialysis on Sunday, Sunday and Sunday was admitted to the hospital yesterday when he was found to be developing progressive shortness of breath and some lethargy on dialysis.She has been diagnosed to have a right pneumonia with sepsis and has been begun on IV antibiotics. Today she feels a whole lot better and is confirmed by her daughter Mari who is by her bedside.She did receive approximately 45 minutes of dialysis yesterday. Labs and medications were reviewed with patient. Today she denies any history of chest pain, shortness of breath, fever or chills. Past Medical History Cardiac Medical History: Reports: Coronary Artery Disease, Hyperlipidemia, Hypertension-primary, Myocardial Infarction - PER EKG READING ON 03/25/14 Pulmonary Medical History: Reports: Chronic Obstructive Pulmonary Disease (COPD) , Pneumonia - Hx of 12/2014 Denies: Asthma, Bronchitis, Tuberculosis EENT Medical History: Denies: Nose, Throat Neurological Medical History: Denies: Multiple Sclerosis, Seizures Endocrine Medical History: Reports: Diabetes Mellitus Type 2 Renal/ Medical History: Reports: End Stage Renal Disease, Secondary Hyperparathyroidism GI Medical History: Reports: Gastroesophageal Reflux Disease Musculoskeltal Medical History: Reports: Arthritis Skin Medical History: Denies: Eczema, Psoriasis Psychiatric Medical History: Reports: Dementia Denies: Depression Traumatic Medical History: Denies: Gunshot Wound, Stab Wound, Traumatic Brain Injury Infectious Medical History: Denies: HIV Hematology Medical History: Reports Anemia of Chronic Kidney Disease Past Surgical History Past Surgical History: Reports: Hysterectomy, Orthopedic Surgery - left knee, Vascular Surgery Social History Smoking Status: Never Smoker Frequency of Alcohol Use: None Hx Recreational Drug Use: No Drugs: None Hx Prescription Drug Abuse: No Family History Parental Family History Reviewed: Yes - Negative for ESRD Children Family History Reviewed: Yes - Negative for CKD Sibling(s) Family History Reviewed.: No Medication/Allergy Home Medications: Allopurinol [Zyloprim 100 mg Tablet] 100 mg PO DAILY 03/18/18 Amlodipine Besylate [Norvasc 10 mg Tablet] 10 mg PO DAILY 03/18/18 Aspirin [Ecotrin 81 mg EC Tablet] 81 mg PO DAILY 03/18/18 Citalopram Hydrobromide [Celexa] 10 mg PO DAILY 03/18/18 Clonidine HCl [Catapres 0.1 mg Tablet] 0.1 mg PO Q8 03/18/18 Docusate Sodium [Colace] 100 mg PO BIDP PRN 03/18/18 Furosemide [Lasix 40 mg Tablet] 40 mg PO BID 03/18/18 Guaifenesin [Mucinex] 600 mg PO Q12 03/18/18 Ipratropium/Albuterol Sulfate [Duoneb 3 ml Ampul] 3 ml NEB RTQ6HP PRN 03/18/18 Levothyroxine Sodium [Synthroid] 50 mcg PO Q6AM 03/18/18 Lubiprostone [Amitiza 24 Mcg Capsule] 24 mcg PO DAILYP PRN 03/18/18 Melatonin 40 mg PO QHS 03/18/18 Methocarbamol [Robaxin 500 mg Tablet] 500 mg PO DAILYP PRN 03/18/18 Omeprazole 40 mg PO DAILY 03/18/18 Ondansetron [Zofran Odt 4 mg Tablet] 4 mg PO Q4HP PRN 03/18/18 Oxycodone HCl [Oxy-Ir 5 mg Tablet] 5 mg PO TID 03/18/18 Polyethylene Glycol 3350 [Miralax Powder 17 gm/Packet] 1 packet PO DAILYP PRN Sevelamer HCl [Renagel] 2,400 mg PO AC 03/18/18 Allergies/Adverse Reactions: rosuvastatin calcium [From Crestor] Allergy (Unknown, Verified 08/06/17 19:01) "Symptoms like the flu" Review of Systems Constitutional: PRESENT: fatigue. ABSENT: fever(s), headache(s), night sweats Nose, Mouth, and Throat: ABSENT: mouth pain, sore throat Cardiovascular: PRESENT: dyspnea on exertion. ABSENT: chest pain, edema, orthropnea Gastrointestinal: ABSENT: abdominal pain, diarrhea, dysphagia, hematemesis, hematochezia, melena, nausea Integumentary: ABSENT: lesions, pruritus Neurological: ABSENT: abnormal speech, confusion, convulsions, focal weakness Psychiatric: ABSENT: anxiety Hematologic/Lymphatic: ABSENT: easy bleeding, easy bruising Physical Exam Vital Signs: Temp Pulse Resp BP Pulse Ox 98.2 F 73 18 144/48 H 100 03/19/18 12:00 03/19/18 14:20 03/19/18 14:20 03/19/18 12:00 03/19/18 12:00 Intake & Output 03/18/18 03/19/18 03/20/18 06:59 06:59 06:59 Intake Total 550 0 Output Total 0 Balance 550 0 Weight 43.9 kg General appearance: PRESENT: no acute distress Eye exam: PRESENT: conjunctiva pink, EOMI, PERRLA Ear exam: PRESENT: normal external ear exam Mouth exam: PRESENT: moist, neck supple Neck exam: ABSENT: lymphadenopathy, meningismus, tenderness, thyromegaly, tracheal deviation Respiratory exam: PRESENT: clear to auscultation irma, crackles Cardiovascular exam: PRESENT: +S1, +S2, systolic murmur GI/Abdominal exam: PRESENT: normal bowel sounds, soft. ABSENT: organomegaly, tenderness Extremities exam: ABSENT: pedal edema Neurological exam: PRESENT: alert, awake, oriented to place, oriented to time Skin exam: ABSENT: cyanosis, erythema, mottled Results Laboratory Results: 03/19/18 07:39 03/19/18 05:46 03/19/18 03/19/18 03/19/18 05:46 05:46 07:39 WBC Cancelled 18.4 H RBC Cancelled 3.77 Hgb Cancelled 11.5 L D Hct Cancelled 36.8 MCV Cancelled 98 H MCH Cancelled 30.5 MCHC Cancelled 31.2 L RDW Cancelled 18.3 H Plt Count Cancelled 358 Seg Neutrophils % Cancelled Not Reportable Lymphocytes % Cancelled Not Reportable Monocytes % Cancelled Not Reportable Eosinophils % Cancelled Not Reportable Basophils % Cancelled Not Reportable Absolute Neutrophils Cancelled Not Reportable Absolute Lymphocytes Cancelled Not Reportable Absolute Monocytes Cancelled Not Reportable Absolute Eosinophils Cancelled Not Reportable Absolute Basophils Cancelled Not Reportable Sodium 139.8 Potassium 5.1 H Chloride 96 L Carbon Dioxide 20 L Anion Gap 24 H BUN 58 H Creatinine 4.43 H Est GFR ( Amer) 11 L Est GFR (Non-Af Amer) 9 L Glucose 78 Calcium 9.7 Total Bilirubin 1.3 AST 12 L ALT 9 Alkaline Phosphatase 137 H Total Protein 7.1 Albumin 3.7 Impressions: Chest X-Ray 03/18/18 14:06 IMPRESSION: Trace bilateral pleural effusions Mild right basilar airspace disease atelectasis versus pneumonia Assessment & Plan - Diagnosis (1) Acute respiratory distress Is this a current diagnosis for this admission?: Yes Plan: From pneumonia. It seems to be improving after initiation with antibiotics. Stable now. (2) Pneumonia Qualifiers: Pneumonia type: due to unspecified organism Laterality: right Lung location: unspecified part of lung Qualified Code(s): J18.9 - Pneumonia, unspecified organism Is this a current diagnosis for this admission?: Yes Plan: Begun on IV antibiotics. One could switch her to IV Rocephin and Z-Sha on a daily basis if needs to be otherwise continue on present antibiotics postdialysis. (3) Anemia due to chronic kidney disease treated with erythropoietin Plan: Stable. No indications for erythropoietin currently. (4) End stage renal disease on dialysis Is this a current diagnosis for this admission?: Yes Plan: Plan for next dialysis in the morning. No acute indications for dialysis now. Discussed with patient and her daughter by the bedside. (5) Hypertension Qualifiers: Hypertension type: essential hypertension Qualified Code(s): I10 - Essential (primary) hypertension Is this a current diagnosis for this admission?: Yes (6) Diastolic congestive heart failure Plan: Stable.
[2018-03-19] MEDS: SEVELAMER HCL 400 MG TABLET PO SCH (17:39)
[2018-03-19] MEDS ORDERED: MELATONIN 40 MG PO SCH (22:00)
[2018-03-19] MEDS: METHOCARBAMOL 500 MG TABLET PO PRN (22:50)
[2018-03-19] MEDS: FAMOTIDINE INJ/PF 20 MG/2 ML SDV IV SCH (22:54)
[2018-03-20] MEDS: HEPARIN SOD (PORCINE) 5,000 UNIT/ML 1 ML SYRINGE SUBCUT SCH ×4 (05:10→21:45)
[2018-03-20 07:13] LABS: HEMATOCRIT 36.7 % (36.0-47.0); HEMOGLOBIN 11.7 g/dL (12.0-15.5); MEAN CORPUSCULAR HEMOGLOBIN 30.7 pg (27.0-33.4); MEAN CORPUSCULAR HGB CONC 31.9 g/dL (32.0-36.0); MEAN CORPUSCULAR VOLUME 97 fl (80-97); PLATELET COUNT 463 10^3/uL (150-450); RED CELL DISTRIBUTION WIDTH 17.9 % (11.5-14.0); WHITE BLOOD COUNT 17.4 10^3/uL (4.0-10.5)
[2018-03-20 07:15] LABS: ALANINE AMINOTRANSFERASE 16 U/L (9-52); ALBUMIN 3.1 g/dL (3.5-5.0); ALKALINE PHOSPHATASE 114 U/L (38-126); ASPARTATE AMINO TRANSFERASE 9 U/L (14-36); BILIRUBIN,DIRECT 1.3 mg/dL (0.0-0.4); BILIRUBIN,TOTAL 1.3 mg/dL (0.2-1.3); BLOOD UREA NITROGEN 64 mg/dL (7-20); CALCIUM 9.3 mg/dL (8.4-10.2); CARBON DIOXIDE 15 mmol/L (22-30); CHLORIDE 99 mmol/L (98-107); GLUCOSE 54 mg/dL (75-110); POTASSIUM 5.6 mmol/L (3.6-5.0); SODIUM 137.3 mmol/L (137-145); TOTAL PROTEIN 5.9 g/dL (6.3-8.2)
[2018-03-20 07:24] LABS: ANION GAP 23 (5-19)
[2018-03-20] MEDS ORDERED: LIDOCAINE 0.5% INJ-PF (5 MG/ML) 50 ML SDV ONE (07:45)
[2018-03-20 07:54] LABS: ABSOLUTE LYMPHOCYTES# (MANUAL) 0.2 10^3/uL (0.5-4.7); ABSOLUTE MONOCYTES # (MANUAL) 0.2 10^3/uL (0.1-1.4); ABSOLUTE NEUTROPHILS# (MANUAL) 17.1 10^3/uL (1.7-8.2); BASOPHILS % (MANUAL) 0 % (0-2); EOSINOPHILS % (MANUAL) 0 % (0-6); LYMPHOCYTES % (MANUAL) 1 % (13-45); MONOCYTES % (MANUAL) 1 % (3-13); SEGMENTED NEUTROPHILS % (MAN) 98 % (42-78); TOTAL CELLS COUNTED 100
[2018-03-20 07:57] LABS: ANISOCYTOSIS 1+; OVALOCYTES 1+; PLATELET COMMENT INCREASED; POIKILOCYTOSIS 1+
[2018-03-20] MEDS ORDERED: FENTANYL CITRATE INJ/PF 100 MCG/2 ML AMPUL ONE (07:59)
[2018-03-20] MEDS ORDERED: MIDAZOLAM 2 MG/2 ML INJ ONE (07:59)
[2018-03-20] MEDS ORDERED: HEPARIN SOD (PORCINE) 5,000 UNIT/ML 1 ML SYRINGE ONE (07:59)
--- NOTE | 2018-03-20 08:28 | RADIOLOGY REPORT (SQ) ---
EXAM DESCRIPTION: CHEST SINGLE VIEW COMPLETED DATE/TIME: 03/20/2018 8:16 am REASON FOR STUDY: SOB COMPARISON: 03/18/2018 NUMBER OF VIEWS: One view. TECHNIQUE: Single frontal radiographic image of the chest acquired. LIMITATIONS: Positioning. FINDINGS: LUNGS AND PLEURA: Improved aeration in both lungs with residual pleural effusions, right g reater than left. MEDIASTINUM AND HEART: Stable heart size and mediastinal structures. BONY STRUCTURES: No acute findings. HARDWARE: Left axillary clips. OTHER: No other significant finding. IMPRESSION: Improving pneumonia or asymmetric edema. TECHNICAL DOCUMENTATION: JOB ID: [id number] Reading location - IP/workstation name: [email or web address]
[2018-03-20] MEDS ORDERED: FUROSEMIDE INJ/PF 40 MG/4 ML SDV IV ONE (08:30)
[2018-03-20] MEDS: IPRATROPIUM/ALBUTEROL 0.5-2.5 MG/3 ML AMPUL NEB SCH ×3 (08:35→20:30)
[2018-03-20 08:43] LABS: ARTERIAL BLOOD FIO2 2L; ARTERIAL BLOOD H2CO3 0.97 mmol/L (1.05-1.35); ARTERIAL BLOOD HCO3 16.8 mmol/L (20-26); ARTERIAL BLOOD O2 SATURATION 94.2 % (94-98); ARTERIAL BLOOD PCO2 32.1 mmHg (35-45); ARTERIAL BLOOD PH 7.34 (7.35-7.45); ARTERIAL BLOOD PO2 73.8 mmHg (80-100); ARTERIAL BLOOD TOTAL CO2 17.8 mmol/L (21-25)
[2018-03-20] MEDS: CLONIDINE HCL 0.1 MG TABLET PO SCH ×3 (09:09→21:52)
[2018-03-20] MEDS: SEVELAMER HCL 400 MG TABLET PO SCH ×3 (09:09→18:41)
[2018-03-20] MEDS: FUROSEMIDE 40 MG TABLET PO SCH ×2 (09:09→18:40)
[2018-03-20] MEDS: LANSOPRAZOLE 30 MG TAB.RAP.DR PO SCH (09:09)
--- NOTE | 2018-03-20 10:46 | PDOC PROGRESS REPORT ---
Subjective Progress Note for:: 03/20/18 Subjective:: Patient is more short of breath this morning when I saw it Patient scheduled for the hemodialysis today and is scheduled for the fistula repair but currently hold due to the patient is complaining more short of breath and discussed with the nephrology and suggest maybe after the dialysis Patient's chest x-ray is currently stable She is denied any chest pain Reason For Visit: PNEUMONIA t82.858a Physical Exam Vital Signs: Temp Pulse Resp BP Pulse Ox 99.4 F 75 16 159/43 H 96 03/20/18 07:08 03/20/18 08:35 03/20/18 08:35 03/20/18 07:08 03/20/18 08:35 Intake & Output 03/19/18 03/20/18 03/21/18 06:59 06:59 06:59 Intake Total 550 60 Output Total 0 Balance 550 60 Weight 43.9 kg 46.3 kg General appearance: PRESENT: mild distress Head exam: PRESENT: atraumatic, normocephalic Eye exam: PRESENT: conjunctiva pink, EOMI, PERRLA. ABSENT: scleral icterus Ear exam: PRESENT: normal external ear exam Mouth exam: PRESENT: moist, tongue midline Neck exam: PRESENT: full ROM. ABSENT: carotid bruit, JVD, lymphadenopathy, thyromegaly Respiratory exam: PRESENT: decreased breath sounds Cardiovascular exam: PRESENT: RRR. ABSENT: diastolic murmur, rubs, systolic murmur Pulses: PRESENT: normal dorsalis pedis pul, +2 pedal pulses bilateral Vascular exam: PRESENT: normal capillary refill GI/Abdominal exam: PRESENT: normal bowel sounds, soft. ABSENT: distended, guarding, mass, organolmegaly, rebound, tenderness Rectal exam: PRESENT: deferred Extremities exam: ABSENT: pedal edema Neurological exam: PRESENT: alert, awake, oriented to person. ABSENT: motor sensory deficit Psychiatric exam: PRESENT: appropriate affect, normal mood. ABSENT: homicidal ideation, suicidal ideation Skin exam: PRESENT: dry, intact, warm. ABSENT: cyanosis, rash Results Laboratory Results: 03/20/18 05:49 03/20/18 05:49 03/20/18 03/20/18 03/20/18 05:49 05:49 08:30 WBC 17.4 H RBC 3.80 Hgb 11.7 L Hct 36.7 MCV 97 MCH 30.7 MCHC 31.9 L RDW 17.9 H Plt Count 463 H Seg Neutrophils % Not Reportable Lymphocytes % Not Reportable Monocytes % Not Reportable Eosinophils % Not Reportable Basophils % Not Reportable Absolute Neutrophils Not Reportable Absolute Lymphocytes Not Reportable Absolute Monocytes Not Reportable Absolute Eosinophils Not Reportable Absolute Basophils Not Reportable Carbonic Acid 0.97 L HCO3/H2CO3 Ratio 17:1 ABG pH 7.34 L ABG pCO2 32.1 L ABG pO2 73.8 L ABG HCO3 16.8 L ABG O2 Saturation 94.2 ABG Base Excess -8.0 FiO2 2L Sodium 137.3 Potassium 5.6 H Chloride 99 Carbon Dioxide 15 L Anion Gap 23 H BUN 64 H Creatinine 5.28 H Est GFR ( Amer) 9 L Est GFR (Non-Af Amer) 8 L Glucose 54 L Calcium 9.3 Total Bilirubin 1.3 AST 9 L ALT 16 Alkaline Phosphatase 114 Total Protein 5.9 L Albumin 3.1 L Impressions: Chest X-Ray 03/20/18 00:00 IMPRESSION: Improving pneumonia or asymmetric edema. Assessment & Plan - Diagnosis (1) Pneumonia Qualifiers: Pneumonia type: due to unspecified organism Laterality: right Lung location: unspecified part of lung Qualified Code(s): J18.9 - Pneumonia, unspecified organism Is this a current diagnosis for this admission?: Yes Plan: Continues IV antibiotic (2) Acute respiratory distress Is this a current diagnosis for this admission?: Yes Plan: Will get the ABG (3) Chronic obstructive pulmonary disease Qualifiers: Emphysema type: unspecified Is this a current diagnosis for this admission?: Yes Plan: Continues to nebulizer treatments (4) Dialysis AV fistula malfunction Qualifiers: Encounter type: initial encounter Qualified Code(s): T82.590A - Other mechanical complication of surgically created arteriovenous fistula, initial encounter Is this a current diagnosis for this admission?: Yes Plan: Will wait up the patient's more stable (5) End stage renal disease on dialysis Is this a current diagnosis for this admission?: Yes Plan: Consult Dr. Rodriguez nephrology (6) Hypertension Qualifiers: Hypertension type: essential hypertension Qualified Code(s): I10 - Essential (primary) hypertension Is this a current diagnosis for this admission?: Yes Plan: Continues to current medications (7) CAD (coronary artery disease) Qualifiers: Coronary Disease-Associated Artery/Lesion type: unspecified vessel or lesion type Is this a current diagnosis for this admission?: Yes Plan: Currently stable (8) Diabetes mellitus Qualifiers: Diabetes mellitus type: type 2 Is this a current diagnosis for this admission?: Yes Plan: Continues to current sliding scale (9) CHF (congestive heart failure) Qualifiers: Heart failure type: diastolic Is this a current diagnosis for this admission?: Yes Plan: Continues to hemodialysis and the Lasix (10) Dementia Qualifiers: Dementia type: unspecified type Dementia behavioral disturbance: without behavioral disturbance Qualified Code(s): F03.90 - Unspecified dementia without behavioral disturbance Is this a current diagnosis for this admission?: Yes Plan: Currently all stable - Time Time Spent with patient: 15-24 minutes Medications reviewed and adjusted accordingly: Yes Anticipated discharge: Other Within: Other - Inpatient Certification Medical Necessity: Need Close Monitoring Due to Risk of Patient Decompensation Post Hospital Care: D/C Paste 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 Edilson Navarro to hold the procedure and discussed with the Dr. Rodriguez about the dialysis and discussed with Dr. Guajardo and discussed with the daughter Frances regarding the patient's current conditions
--- NOTE | 2018-03-20 13:34 | PDOC PROGRESS REPORT ---
Subjective Progress Note for:: 03/20/18 Reason For Visit: Seen on dialysis today. Dated 03/20/18. She is undergoing dialysis but does not look very healthy like she was and I saw her yesterday. She is short of breath but denies any history of fever or chills. Labs and medications were reviewed. Orders were discussed with the treating dialysis nurse. Physical Exam Vital Signs: Temp Pulse Resp BP Pulse Ox 99.4 F 75 16 159/43 H 96 03/20/18 07:08 03/20/18 08:35 03/20/18 08:35 03/20/18 07:08 03/20/18 08:35 Intake & Output 03/19/18 03/20/18 03/21/18 06:59 06:59 06:59 Intake Total 550 60 Output Total 0 0 Balance 550 60 0 Weight 43.9 kg 46.3 kg General appearance: PRESENT: mild distress Respiratory exam: PRESENT: clear to auscultation irma, crackles - Scattered especially in the right lungs, rhonchi - A few in both lungs Cardiovascular exam: PRESENT: +S1, +S2, systolic murmur GI/Abdominal exam: PRESENT: normal bowel sounds, soft. ABSENT: organomegaly, tenderness Extremities exam: PRESENT: pedal edema Neurological exam: PRESENT: oriented to person Psychiatric exam: PRESENT: depressed Skin exam: ABSENT: cyanosis, erythema, mottled, rash Results Laboratory Results: 03/20/18 05:49 03/20/18 05:49 03/20/18 03/20/18 03/20/18 05:49 05:49 08:30 WBC 17.4 H RBC 3.80 Hgb 11.7 L Hct 36.7 MCV 97 MCH 30.7 MCHC 31.9 L RDW 17.9 H Plt Count 463 H Seg Neutrophils % Not Reportable Lymphocytes % Not Reportable Monocytes % Not Reportable Eosinophils % Not Reportable Basophils % Not Reportable Absolute Neutrophils Not Reportable Absolute Lymphocytes Not Reportable Absolute Monocytes Not Reportable Absolute Eosinophils Not Reportable Absolute Basophils Not Reportable Carbonic Acid 0.97 L HCO3/H2CO3 Ratio 17:1 ABG pH 7.34 L ABG pCO2 32.1 L ABG pO2 73.8 L ABG HCO3 16.8 L ABG O2 Saturation 94.2 ABG Base Excess -8.0 FiO2 2L Sodium 137.3 Potassium 5.6 H Chloride 99 Carbon Dioxide 15 L Anion Gap 23 H BUN 64 H Creatinine 5.28 H Est GFR ( Amer) 9 L Est GFR (Non-Af Amer) 8 L Glucose 54 L Calcium 9.3 Total Bilirubin 1.3 AST 9 L ALT 16 Alkaline Phosphatase 114 Total Protein 5.9 L Albumin 3.1 L Impressions: Chest X-Ray 03/20/18 00:00 IMPRESSION: Improving pneumonia or asymmetric edema. Assessment & Plan - Diagnosis (1) End stage renal disease on dialysis Is this a current diagnosis for this admission?: Yes Plan: Patient being seen on dialysis today. Is being supervised to ensure safe and smooth procedure. Vital signs are stable. Patient does not look as good as she was yesterday because she is a bit more short of breath. However she is undergoing dialysis without any complications. We will plan to remove approximately 3 L of fluid as tolerated. Orders were again reviewed with the treating dialysis nurse. (2) Acute respiratory distress Is this a current diagnosis for this admission?: Yes Plan: Combination of pneumonia and early congestive heart failure. See how she responds to dialysis. Orders were reviewed with the treating dialysis nurse. (3) Pneumonia Qualifiers: Pneumonia type: due to unspecified organism Laterality: right Lung location: unspecified part of lung Qualified Code(s): J18.9 - Pneumonia, unspecified organism Is this a current diagnosis for this admission?: Yes Plan: Improving radiologically. On appropriate antibiotics. (4) Anemia due to chronic kidney disease treated with erythropoietin Plan: Stable. No indication for Procrit. (5) Hypertension Qualifiers: Hypertension type: essential hypertension Qualified Code(s): I10 - Essential (primary) hypertension Is this a current diagnosis for this admission?: Yes Plan: Controlled. (6) Diastolic congestive heart failure Plan: See response to dialysis. Orders reviewed with the treating dialysis nurse. (7) Hyperkalemia Plan: Should respond to dialysis. Monitor.
[2018-03-20] MEDS: CITALOPRAM HYDROBROMIDE 20 MG TABLET PO SCH (13:54)
[2018-03-20] MEDS: LEVOTHYROXINE SODIUM 0.05 MG TABLET PO SCH (13:55)
[2018-03-20] MEDS: AMLODIPINE BESYLATE 10 MG TABLET PO SCH (13:55)
[2018-03-20] MEDS: ASPIRIN 81 MG TABLET, ENT COATED PO SCH (13:55)
[2018-03-20] MEDS: ALLOPURINOL 100 MG TABLET PO SCH (13:55)
[2018-03-20] MEDS: GUAIFENESIN 600 MG TABLET.SA PO SCH ×2 (13:56→21:40)
[2018-03-20] MEDS: OXYCODONE HCL IR 5 MG TABLET PO PRN (14:18)
[2018-03-20] MEDS: VANCOMYCIN HCL 750 MG in DEXTROSE 5%-WATER 250 ML IV SCH (18:41)
--- NOTE | 2018-03-20 18:45 | EKG REPORT ---
SEVERITY:- ABNORMAL ECG - SINUS TACHYCARDIA LOW VOLTAGE IN FRONTAL LEADS BORDERLINE R WAVE PROGRESSION, ANTERIOR LEADS BORDERLINE T ABNORMALITIES, ANTERIOR LEADS : Confirmed by: Ebenezer Hutchins MD 20-Mar-2018 18:45:04
[2018-03-20] MEDS: METHOCARBAMOL 500 MG TABLET PO PRN (20:29)
[2018-03-20] MEDS: CEFEPIME 2 GM/D5W RTU 2 GM/50 ML RTUPB IV SCH (21:38)
[2018-03-20] MEDS: FAMOTIDINE INJ/PF 20 MG/2 ML SDV IV SCH (21:40)
[2018-03-21] MEDS: OXYCODONE HCL IR 5 MG TABLET PO PRN (02:33)
[2018-03-21] MEDS: HEPARIN SOD (PORCINE) 5,000 UNIT/ML 1 ML SYRINGE SUBCUT SCH ×3 (05:39→22:04)
[2018-03-21] MEDS: LEVOTHYROXINE SODIUM 0.05 MG TABLET PO SCH (05:39)
[2018-03-21] MEDS: CLONIDINE HCL 0.1 MG TABLET PO SCH ×3 (05:39→22:03)
[2018-03-21 05:56] LABS: ABSOLUTE EOSINOPHILS # (AUTO) 0.1 10^3/uL (0.0-0.6); ABSOLUTE LYMPHOCYTES (AUTO) 0.9 10^3/uL (0.5-4.7); ABSOLUTE MONOCYTES (AUTO) 1.3 10^3/uL (0.1-1.4); ABSOLUTE NEUT (AUTO) 13.6 10^3/uL (1.7-8.2); BASOPHILS % (AUTO) 0.3 % (0-2); EOSINOPHILS % (AUTO) 0.9 % (0-6); HEMATOCRIT 35.3 % (36.0-47.0); HEMOGLOBIN 11.1 g/dL (12.0-15.5); LYMPHOCYTES % (AUTO) 5.6 % (13-45); MEAN CORPUSCULAR HGB CONC 31.4 g/dL (32.0-36.0); MEAN CORPUSCULAR VOLUME 96 fl (80-97); MONOCYTES % (AUTO) 8.1 % (3-13); PLATELET COUNT 434 10^3/uL (150-450); RED CELL DISTRIBUTION WIDTH 17.7 % (11.5-14.0); SEGMENTED NEUTROPHILS % (AUTO) 85.1 % (42-78); TOTAL CELLS COUNTED % (AUTO) 100 %
[2018-03-21] MEDS: LANSOPRAZOLE 30 MG TAB.RAP.DR PO SCH (05:57)
[2018-03-21 06:21] LABS: ALANINE AMINOTRANSFERASE 15 U/L (9-52); ALBUMIN 3.1 g/dL (3.5-5.0); ALKALINE PHOSPHATASE 112 U/L (38-126); ANION GAP 17 (5-19); ASPARTATE AMINO TRANSFERASE 12 U/L (14-36); BILIRUBIN,DIRECT 1.2 mg/dL (0.0-0.4); BILIRUBIN,TOTAL 1.2 mg/dL (0.2-1.3); BLOOD UREA NITROGEN 46 mg/dL (7-20); CALCIUM 9.2 mg/dL (8.4-10.2); CARBON DIOXIDE 23 mmol/L (22-30); CHLORIDE 99 mmol/L (98-107); GLUCOSE 89 mg/dL (75-110); POTASSIUM 4.7 mmol/L (3.6-5.0); SODIUM 138.8 mmol/L (137-145); TOTAL PROTEIN 5.9 g/dL (6.3-8.2)
[2018-03-21] MEDS: SEVELAMER HCL 400 MG TABLET PO SCH ×3 (07:53→17:22)
--- NOTE | 2018-03-21 08:38 | PDOC PROGRESS REPORT ---
Subjective Progress Note for:: 03/21/18 Subjective:: Patient is currently doing fair little bit better than compared to yesterday Patient's denied any chest pain denied any shortness of the breath Family and the bedside no other concern No nursing concern Reason For Visit: PNEUMONIA t82.858a Physical Exam Vital Signs: Temp Pulse Resp BP Pulse Ox 98.4 F 76 15 150/53 H 91 L 03/21/18 07:35 03/21/18 07:35 03/21/18 07:35 03/21/18 07:35 03/21/18 07:35 Intake & Output 03/20/18 03/21/18 03/22/18 06:59 06:59 06:59 Intake Total 60 1486 Output Total 2200 Balance 60 -714 Weight 46.3 kg 43.9 kg General appearance: PRESENT: no acute distress, well-developed, well-nourished Head exam: PRESENT: atraumatic, normocephalic Eye exam: PRESENT: conjunctiva pink, EOMI, PERRLA. ABSENT: scleral icterus Ear exam: PRESENT: normal external ear exam Mouth exam: PRESENT: moist, tongue midline Neck exam: PRESENT: full ROM. ABSENT: carotid bruit, JVD, lymphadenopathy, thyromegaly Respiratory exam: PRESENT: clear to auscultation irma Cardiovascular exam: PRESENT: RRR. ABSENT: diastolic murmur, rubs, systolic murmur Pulses: PRESENT: normal dorsalis pedis pul, +2 pedal pulses bilateral Vascular exam: PRESENT: normal capillary refill GI/Abdominal exam: PRESENT: normal bowel sounds, soft. ABSENT: distended, guarding, mass, organolmegaly, rebound, tenderness Rectal exam: PRESENT: deferred Neurological exam: PRESENT: alert, awake, oriented to person. ABSENT: motor sensory deficit Psychiatric exam: PRESENT: appropriate affect, normal mood. ABSENT: homicidal ideation, suicidal ideation Skin exam: PRESENT: dry, intact, warm. ABSENT: cyanosis, rash Results Laboratory Results: 03/21/18 05:27 03/21/18 05:27 03/20/18 03/21/18 03/21/18 08:30 05:27 05:27 WBC 16.0 H RBC 3.70 L Hgb 11.1 L Hct 35.3 L MCV 96 MCH 30.0 MCHC 31.4 L RDW 17.7 H Plt Count 434 Seg Neutrophils % 85.1 H Lymphocytes % 5.6 L Monocytes % 8.1 Eosinophils % 0.9 Basophils % 0.3 Absolute Neutrophils 13.6 H Absolute Lymphocytes 0.9 Absolute Monocytes 1.3 Absolute Eosinophils 0.1 Absolute Basophils 0.0 Carbonic Acid 0.97 L HCO3/H2CO3 Ratio 17:1 ABG pH 7.34 L ABG pCO2 32.1 L ABG pO2 73.8 L ABG HCO3 16.8 L ABG O2 Saturation 94.2 ABG Base Excess -8.0 FiO2 2L Sodium 138.8 Potassium 4.7 Chloride 99 Carbon Dioxide 23 Anion Gap 17 BUN 46 H Creatinine 3.90 H Est GFR ( Amer) 13 L Est GFR (Non-Af Amer) 11 L Glucose 89 Calcium 9.2 Total Bilirubin 1.2 AST 12 L ALT 15 Alkaline Phosphatase 112 Total Protein 5.9 L Albumin 3.1 L Impressions: Chest X-Ray 03/20/18 00:00 IMPRESSION: Improving pneumonia or asymmetric edema. Assessment & Plan - Diagnosis (1) Pneumonia Qualifiers: Pneumonia type: due to unspecified organism Laterality: right Lung location: unspecified part of lung Qualified Code(s): J18.9 - Pneumonia, unspecified organism Is this a current diagnosis for this admission?: Yes Plan: Continues to antibiotic (2) Acute respiratory distress Is this a current diagnosis for this admission?: Yes Plan: Currently all stable (3) Chronic obstructive pulmonary disease Qualifiers: Emphysema type: unspecified Is this a current diagnosis for this admission?: Yes Plan: Continues to nebulizer treatments (4) Dialysis AV fistula malfunction Qualifiers: Encounter type: initial encounter Qualified Code(s): T82.590A - Other mechanical complication of surgically created arteriovenous fistula, initial encounter Is this a current diagnosis for this admission?: Yes (5) End stage renal disease on dialysis Is this a current diagnosis for this admission?: Yes Plan: Currently on hemodialysis (6) Hypertension Qualifiers: Hypertension type: essential hypertension Qualified Code(s): I10 - Essential (primary) hypertension Is this a current diagnosis for this admission?: Yes Plan: Continues to current medications (7) CAD (coronary artery disease) Qualifiers: Coronary Disease-Associated Artery/Lesion type: unspecified vessel or lesion type Is this a current diagnosis for this admission?: Yes Plan: Currently stable (8) Diabetes mellitus Qualifiers: Diabetes mellitus type: type 2 Is this a current diagnosis for this admission?: Yes Plan: Continues to current sliding scale (9) CHF (congestive heart failure) Qualifiers: Heart failure type: diastolic Is this a current diagnosis for this admission?: Yes Plan: Continues to hemodialysis and the Lasix (10) Dementia Qualifiers: Dementia type: unspecified type Dementia behavioral disturbance: without behavioral disturbance Qualified Code(s): F03.90 - Unspecified dementia without behavioral disturbance Is this a current diagnosis for this admission?: Yes - Time Time Spent with patient: 15-24 minutes Medications reviewed and adjusted accordingly: Yes Anticipated discharge: Home Within: Other - Inpatient Certification Medical Necessity: Need Close Monitoring Due to Risk of Patient Decompensation, Need for IV Antibiotics Post Hospital Care: D/C Donation Worker Documentation - Plan Summary Plan Summary: Discussed with the family and the bedside regarding the patient's current conditions Continues IV antibiotic
[2018-03-21] MEDS: IPRATROPIUM/ALBUTEROL 0.5-2.5 MG/3 ML AMPUL NEB SCH ×3 (08:48→19:51)
[2018-03-21] MEDS: ALLOPURINOL 100 MG TABLET PO SCH (11:20)
[2018-03-21] MEDS: AMLODIPINE BESYLATE 10 MG TABLET PO SCH (11:20)
[2018-03-21] MEDS: CITALOPRAM HYDROBROMIDE 20 MG TABLET PO SCH (11:20)
[2018-03-21] MEDS: FUROSEMIDE 40 MG TABLET PO SCH ×2 (11:20→17:22)
[2018-03-21] MEDS: ASPIRIN 81 MG TABLET, ENT COATED PO SCH (11:21)
--- NOTE | 2018-03-21 13:26 | PDOC PROGRESS REPORT ---
Subjective Progress Note for:: 03/21/18 Subjective:: resting;confused Reason For Visit: PNEUMONIA t82.858a Physical Exam Vital Signs: Temp Pulse Resp BP Pulse Ox 98.4 F 101 H 20 150/53 H 98 03/21/18 07:35 03/21/18 08:48 03/21/18 08:48 03/21/18 07:35 03/21/18 08:48 Intake & Output 03/20/18 03/21/18 03/22/18 06:59 06:59 06:59 Intake Total 60 1486 100 Output Total 2200 Balance 60 -714 100 Weight 46.3 kg 43.9 kg General appearance: PRESENT: no acute distress, disheveled, well-developed. ABSENT: cooperative Head exam: PRESENT: atraumatic, normocephalic Eye exam: PRESENT: conjunctiva pale, EOMI. ABSENT: nystagmus, periorbital swelling, PERRLA Mouth exam: PRESENT: moist, neck supple, tongue midline Neck exam: ABSENT: carotid bruit, JVD, lymphadenopathy, thyromegaly, tracheal deviation, tracheostomy Respiratory exam: PRESENT: decreased breath sounds, prolonged expiratory phas, rales - decreased, rhonchi, unlabored. ABSENT: retraction, stridor, tachypnea Cardiovascular exam: PRESENT: RRR, +S1, +S2 Pulses: PRESENT: normal radial pulses GI/Abdominal exam: PRESENT: normal bowel sounds, soft Extremities exam: ABSENT: calf tenderness, clubbing, full ROM, joint swelling Musculoskeletal exam: ABSENT: ambulatory, deformity, dislocation, full ROM Neurological exam: PRESENT: awake, oriented to person Skin exam: PRESENT: dry, warm Results Laboratory Results: 03/21/18 05:27 03/21/18 05:27 03/21/18 03/21/18 05:27 05:27 WBC 16.0 H RBC 3.70 L Hgb 11.1 L Hct 35.3 L MCV 96 MCH 30.0 MCHC 31.4 L RDW 17.7 H Plt Count 434 Seg Neutrophils % 85.1 H Lymphocytes % 5.6 L Monocytes % 8.1 Eosinophils % 0.9 Basophils % 0.3 Absolute Neutrophils 13.6 H Absolute Lymphocytes 0.9 Absolute Monocytes 1.3 Absolute Eosinophils 0.1 Absolute Basophils 0.0 Sodium 138.8 Potassium 4.7 Chloride 99 Carbon Dioxide 23 Anion Gap 17 BUN 46 H Creatinine 3.90 H Est GFR ( Amer) 13 L Est GFR (Non-Af Amer) 11 L Glucose 89 Calcium 9.2 Total Bilirubin 1.2 AST 12 L ALT 15 Alkaline Phosphatase 112 Total Protein 5.9 L Albumin 3.1 L Impressions: Chest X-Ray 03/20/18 00:00 IMPRESSION: Improving pneumonia or asymmetric edema. Assessment & Plan - Diagnosis (1) Acute respiratory distress Is this a current diagnosis for this admission?: No (2) Dementia Qualifiers: Dementia type: unspecified type Dementia behavioral disturbance: without behavioral disturbance Qualified Code(s): F03.90 - Unspecified dementia without behavioral disturbance Is this a current diagnosis for this admission?: Yes Plan: unchanged (3) Pneumonia Qualifiers: Pneumonia type: due to unspecified organism Laterality: right Lung location: unspecified part of lung Qualified Code(s): J18.9 - Pneumonia, unspecified organism Is this a current diagnosis for this admission?: Yes Plan: wbc decreasing cxr improved (4) 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
--- NOTE | 2018-03-21 13:43 | PDOC PROGRESS REPORT ---
Subjective Progress Note for:: 03/21/18 Subjective:: Patient was laying in bed on her side when I saw her. Continues to look weak and in pain. At the time she denied SOB or chest pressure. She did not appear to have labored breathing like she did yesterday. Denies fevers, chills, N/V/D/ C. Reason For Visit: PNEUMONIA t82.858a Physical Exam Vital Signs: Temp Pulse Resp BP Pulse Ox 98.4 F 101 H 20 150/53 H 98 03/21/18 07:35 03/21/18 08:48 03/21/18 08:48 03/21/18 07:35 03/21/18 08:48 Intake & Output 03/20/18 03/21/18 03/22/18 06:59 06:59 06:59 Intake Total 60 1486 100 Output Total 2200 Balance 60 -714 100 Weight 46.3 kg 43.9 kg General appearance: PRESENT: no acute distress, well-developed, well-nourished Mouth exam: PRESENT: moist. ABSENT: neck supple Neck exam: PRESENT: full ROM. ABSENT: JVD Respiratory exam: PRESENT: rales, rhonchi. ABSENT: accessory muscle use, clear to auscultation irma, crackles, wheezes Cardiovascular exam: PRESENT: +S1, +S2, systolic murmur GI/Abdominal exam: PRESENT: normal bowel sounds, soft. ABSENT: organomegaly, tenderness Extremities exam: ABSENT: pedal edema, tenderness, +1 edema, +2 edema Neurological exam: PRESENT: alert, awake, oriented to person, oriented to place Psychiatric exam: PRESENT: appropriate affect, normal mood Skin exam: PRESENT: dry, intact, warm. ABSENT: cyanosis Results Laboratory Results: 03/21/18 05:27 03/21/18 05:27 03/21/18 03/21/18 05:27 05:27 WBC 16.0 H RBC 3.70 L Hgb 11.1 L Hct 35.3 L MCV 96 MCH 30.0 MCHC 31.4 L RDW 17.7 H Plt Count 434 Seg Neutrophils % 85.1 H Lymphocytes % 5.6 L Monocytes % 8.1 Eosinophils % 0.9 Basophils % 0.3 Absolute Neutrophils 13.6 H Absolute Lymphocytes 0.9 Absolute Monocytes 1.3 Absolute Eosinophils 0.1 Absolute Basophils 0.0 Sodium 138.8 Potassium 4.7 Chloride 99 Carbon Dioxide 23 Anion Gap 17 BUN 46 H Creatinine 3.90 H Est GFR ( Amer) 13 L Est GFR (Non-Af Amer) 11 L Glucose 89 Calcium 9.2 Total Bilirubin 1.2 AST 12 L ALT 15 Alkaline Phosphatase 112 Total Protein 5.9 L Albumin 3.1 L Impressions: Chest X-Ray 03/20/18 00:00 IMPRESSION: Improving pneumonia or asymmetric edema. Assessment & Plan - Diagnosis (1) Acute respiratory distress Is this a current diagnosis for this admission?: No Plan: Currently stable after receiving a couple of days of antibiotics and dialysis. (2) End stage renal disease on dialysis Is this a current diagnosis for this admission?: Yes Plan: no current indication for dialysis today. Will look to do dialysis tomorrow (3) Diastolic congestive heart failure Plan: improving, will remove more fluid with dialysis (4) Anemia due to chronic kidney disease treated with erythropoietin Is this a current diagnosis for this admission?: Yes Plan: on epogen with dialysis. (5) Pneumonia Qualifiers: Pneumonia type: due to unspecified organism Laterality: right Lung location: lower lobe of lung Qualified Code(s): J18.1 - Lobar pneumonia, unspecified organism Plan: currently on cefepime and vanc (6) Hypertension Qualifiers: Hypertension type: essential hypertension Qualified Code(s): I10 - Essential (primary) hypertension Is this a current diagnosis for this admission?: Yes Plan: mostly controlled (7) Hyperkalemia Plan: resolved
[2018-03-21] MEDS ORDERED: METHOCARBAMOL 500 MG TABLET PO PRN (16:49)
[2018-03-21] MEDS: GUAIFENESIN 600 MG TABLET.SA PO SCH (22:03)
[2018-03-22] MEDS: OXYCODONE HCL IR 5 MG TABLET PO PRN (03:12)
[2018-03-22 06:30] LABS: HEMATOCRIT 36.5 % (36.0-47.0); HEMOGLOBIN 11.7 g/dL (12.0-15.5); MEAN CORPUSCULAR HEMOGLOBIN 30.4 pg (27.0-33.4); MEAN CORPUSCULAR HGB CONC 31.9 g/dL (32.0-36.0); MEAN CORPUSCULAR VOLUME 95 fl (80-97); PLATELET COUNT 436 10^3/uL (150-450); RED BLOOD COUNT 3.83 10^6/uL (3.72-5.28); RED CELL DISTRIBUTION WIDTH 17.5 % (11.5-14.0); WHITE BLOOD COUNT 20.2 10^3/uL (4.0-10.5)
[2018-03-22 06:54] LABS: BLOOD UREA NITROGEN 56 mg/dL (7-20); CALCIUM 9.4 mg/dL (8.4-10.2); GLUCOSE 69 mg/dL (75-110); POTASSIUM 5.2 mmol/L (3.6-5.0)
[2018-03-22 07:00] LABS: CARBON DIOXIDE 20 mmol/L (22-30); CHLORIDE 100 mmol/L (98-107); SODIUM 140.1 mmol/L (137-145)
[2018-03-22 07:02] LABS: ABSOLUTE LYMPHOCYTES# (MANUAL) 0.6 10^3/uL (0.5-4.7); ABSOLUTE NEUTROPHILS# (MANUAL) 18.4 10^3/uL (1.7-8.2); BAND NEUTROPHILS % (MANUAL) 1 % (3-5); BASOPHILS % (MANUAL) 0 % (0-2); EOSINOPHILS % (MANUAL) 1 % (0-6); LYMPHOCYTES % (MANUAL) 3 % (13-45); MONOCYTES % (MANUAL) 5 % (3-13); SEGMENTED NEUTROPHILS % (MAN) 90 % (42-78); TOTAL CELLS COUNTED 100
[2018-03-22 07:03] LABS: ANISOCYTOSIS 1+; OVALOCYTES SLIGHT; PLATELET COMMENT ADEQUATE; POIKILOCYTOSIS SLIGHT; TEAR DROP CELLS SLIGHT
[2018-03-22 07:09] LABS: ANION GAP 20 (5-19)
[2018-03-22] MEDS: SEVELAMER HCL 400 MG TABLET PO SCH ×3 (08:02→16:03)
[2018-03-22] MEDS: CLONIDINE HCL 0.1 MG TABLET PO SCH ×3 (08:02→23:53)
[2018-03-22] MEDS: HEPARIN SOD (PORCINE) 5,000 UNIT/ML 1 ML SYRINGE SUBCUT SCH ×3 (08:02→23:53)
[2018-03-22] MEDS: LANSOPRAZOLE 30 MG TAB.RAP.DR PO SCH (08:02)
[2018-03-22] MEDS: LEVOTHYROXINE SODIUM 0.05 MG TABLET PO SCH (08:02)
[2018-03-22] MEDS: IPRATROPIUM/ALBUTEROL 0.5-2.5 MG/3 ML AMPUL NEB SCH ×3 (08:04→19:51)
[2018-03-22] MEDS ORDERED: HYDROMORPHONE HCL INJ/PF 2 MG/ML AMPULE ONE (08:16)
--- NOTE | 2018-03-22 10:13 | PDOC CONSULTATION ---
Consultation Consult Date: 03/19/18 Attending physician:: MC GONZALEZ Consult reason:: resp distress History of Present Illness Admission Date/PCP: 03/18/18 18:50 MC GONZALEZ MD History of Present Illness: DAVID FLETCHER is a 87 year old female demented on hemo-dyalysis;very confused reported to have temp and cough. Past Medical History Cardiac Medical History: Reports: Congestive Heart Failure, Coronary Artery Disease, Myocardial Infarction - PER EKG READING ON 03/25/14, Hyperlipidema, Hypertension Pulmonary Medical History: Reports: Chronic Obstructive Pulmonary Disease (COPD) , Pneumonia - Hx of 12/2014 Denies: Asthma, Bronchitis, Tuberculosis EENT Medical History: Denies: Nose, Throat Neurological Medical History: Denies: Multiple Sclerosis, Seizures Endocrine Medical History: Reports: Diabetes Mellitus Type 2 Renal/ Medical History: Reports: End Stage Renal Disease GI Medical History: Reports: Gastroesophageal Reflux Disease Musculoskeltal Medical History: Reports: Arthritis Skin Medical History: Denies: Eczema, Psoriasis Psychiatric Medical History: Reports: Dementia Denies: Depression Traumatic Medical History: Denies: Gunshot Wound, Stab Wound, Traumatic Brain Injury Hematology: Reports: Anemia Denies: Hemophilia Infectious Medical History: Denies: HIV Past Surgical History Past Surgical History: Reports: Hysterectomy, Orthopedic Surgery - left knee, Vascular Surgery Social History Information Source: Relative, [facility] Records Smoking Status: Never Smoker Passive smoke exposure as: Adult Frequency of Alcohol Use: None Hx Recreational Drug Use: No Drugs: None Hx Prescription Drug Abuse: No Do you have pets?: No Have you had any respiratory illnesses as a child?: No Have you been exposed to any sick contacts recently?: No Have you had any recent respiratory illnesses?: No Have you travelled outside of [place] in the past 12 months?: No Family History Parental Family History Reviewed: No Children Family History Reviewed: No Sibling(s) Family History Reviewed.: No Medication/Allergy Home Medications: Allopurinol [Zyloprim 100 mg Tablet] 100 mg PO DAILY 03/18/18 Amlodipine Besylate [Norvasc 10 mg Tablet] 10 mg PO DAILY 03/18/18 Aspirin [Ecotrin 81 mg EC Tablet] 81 mg PO DAILY 03/18/18 Citalopram Hydrobromide [Celexa] 10 mg PO DAILY 03/18/18 Clonidine HCl [Catapres 0.1 mg Tablet] 0.1 mg PO Q8 03/18/18 Docusate Sodium [Colace] 100 mg PO BIDP PRN 03/18/18 Furosemide [Lasix 40 mg Tablet] 40 mg PO BID 03/18/18 Guaifenesin [Mucinex] 600 mg PO Q12 03/18/18 Ipratropium/Albuterol Sulfate [Duoneb 3 ml Ampul] 3 ml NEB RTQ6HP PRN 03/18/18 Levothyroxine Sodium [Synthroid] 50 mcg PO Q6AM 03/18/18 Lubiprostone [Amitiza 24 Mcg Capsule] 24 mcg PO DAILYP PRN 03/18/18 Melatonin 40 mg PO QHS 03/18/18 Methocarbamol [Robaxin 500 mg Tablet] 500 mg PO DAILYP PRN 03/18/18 Omeprazole 40 mg PO DAILY 03/18/18 Ondansetron [Zofran Odt 4 mg Tablet] 4 mg PO Q4HP PRN 03/18/18 Oxycodone HCl [Oxy-Ir 5 mg Tablet] 5 mg PO TID 03/18/18 Polyethylene Glycol 3350 [Miralax Powder 17 gm/Packet] 1 packet PO DAILYP PRN Sevelamer HCl [Renagel] 2,400 mg PO AC 03/18/18 Allergies/Adverse Reactions: rosuvastatin calcium [From Crestor] Allergy (Unknown, Verified 08/06/17 19:01) "Symptoms like the flu" Review of Systems ROS unobtainable: Due to mental status Physical Exam Vital Signs: Temp Pulse Resp BP Pulse Ox 97.6 F 73 16 130/33 H 100 03/19/18 07:07 03/19/18 08:27 03/19/18 08:27 03/19/18 07:07 03/19/18 07:07 Intake & Output 03/18/18 03/19/18 03/20/18 06:59 06:59 06:59 Intake Total 550 Output Total 0 Balance 550 Weight 43.9 kg General appearance: PRESENT: no acute distress, cooperative, disheveled Head exam: PRESENT: atraumatic, normocephalic Eye exam: PRESENT: conjunctiva pale, EOMI, PERRLA. ABSENT: nystagmus, periorbital swelling, scleral icterus Mouth exam: PRESENT: dry mucosa, neck supple, tongue midline Respiratory exam: PRESENT: rales, rhonchi, unlabored. ABSENT: retraction, wheezes Cardiovascular exam: PRESENT: RRR, +S1, +S2 Pulses: PRESENT: normal radial pulses GI/Abdominal exam: PRESENT: normal bowel sounds, soft Extremities exam: ABSENT: calf tenderness, clubbing, joint swelling Musculoskeletal exam: ABSENT: deformity, dislocation Neurological exam: PRESENT: awake. ABSENT: oriented to person Psychiatric exam: PRESENT: flat affect Skin exam: PRESENT: dry, warm Results Laboratory Results: 03/19/18 07:39 03/19/18 05:46 03/19/18 03/19/18 03/19/18 05:46 05:46 07:39 WBC Cancelled 18.4 H RBC Cancelled 3.77 Hgb Cancelled 11.5 L D Hct Cancelled 36.8 MCV Cancelled 98 H MCH Cancelled 30.5 MCHC Cancelled 31.2 L RDW Cancelled 18.3 H Plt Count Cancelled 358 Seg Neutrophils % Cancelled Not Reportable Lymphocytes % Cancelled Not Reportable Monocytes % Cancelled Not Reportable Eosinophils % Cancelled Not Reportable Basophils % Cancelled Not Reportable Absolute Neutrophils Cancelled Not Reportable Absolute Lymphocytes Cancelled Not Reportable Absolute Monocytes Cancelled Not Reportable Absolute Eosinophils Cancelled Not Reportable Absolute Basophils Cancelled Not Reportable Sodium 139.8 Potassium 5.1 H Chloride 96 L Carbon Dioxide 20 L Anion Gap 24 H BUN 58 H Creatinine 4.43 H Est GFR ( Amer) 11 L Est GFR (Non-Af Amer) 9 L Glucose 78 Calcium 9.7 Total Bilirubin 1.3 AST 12 L ALT 9 Alkaline Phosphatase 137 H Total Protein 7.1 Albumin 3.7 Impressions: Chest X-Ray 03/18/18 14:06 IMPRESSION: Trace bilateral pleural effusions Mild right basilar airspace disease atelectasis versus pneumonia Assessment & Plan - Diagnosis (1) Acute respiratory distress Is this a current diagnosis for this admission?: Yes (2) Dementia Qualifiers: Dementia type: unspecified type Dementia behavioral disturbance: without behavioral disturbance Qualified Code(s): F03.90 - Unspecified dementia without behavioral disturbance Is this a current diagnosis for this admission?: Yes Plan: unchanged (3) Pneumonia Qualifiers: Pneumonia type: due to unspecified organism Laterality: right Lung location: unspecified part of lung Qualified Code(s): J18.9 - Pneumonia, unspecified organism Is this a current diagnosis for this admission?: Yes Plan: wbc decreasing cxr improved (4) Anemia due to chronic kidney disease treated with erythropoietin Is this a current diagnosis for this admission?: Yes (5) Dialysis AV fistula malfunction Qualifiers: Encounter type: initial encounter Qualified Code(s): T82.590A - Other mechanical complication of surgically created arteriovenous fistula, initial encounter Is this a current diagnosis for this admission?: Yes (6) Fever and chills Plan: afebrile
--- NOTE | 2018-03-22 10:16 | PDOC PROGRESS REPORT ---
Subjective Progress Note for:: 03/22/18 Subjective:: confused and combative Reason For Visit: PNEUMONIA t82.858a Physical Exam Vital Signs: Temp Pulse Resp BP Pulse Ox 99.7 F 107 H 20 163/47 H 98 03/22/18 07:21 03/22/18 07:21 03/22/18 07:21 03/22/18 07:21 03/22/18 07:21 Intake & Output 03/21/18 03/22/18 03/23/18 06:59 06:59 06:59 Intake Total 1486 130 Output Total 2200 0 Balance -714 130 Weight 43.9 kg 43.9 kg General appearance: PRESENT: no acute distress, disheveled. ABSENT: cooperative Head exam: PRESENT: atraumatic, normocephalic Eye exam: PRESENT: conjunctiva pale, EOMI. ABSENT: nystagmus, periorbital swelling, scleral icterus Mouth exam: PRESENT: dry mucosa, neck supple, tongue midline Neck exam: ABSENT: carotid bruit, JVD, lymphadenopathy, thyromegaly, tracheal deviation, tracheostomy Respiratory exam: PRESENT: decreased breath sounds, prolonged expiratory phas, rales, rhonchi, unlabored. ABSENT: retraction, stridor Cardiovascular exam: PRESENT: RRR, +S1, +S2 Pulses: PRESENT: normal radial pulses GI/Abdominal exam: PRESENT: hypoactive bowel sounds, soft Extremities exam: ABSENT: calf tenderness, clubbing, joint swelling Musculoskeletal exam: ABSENT: deformity, dislocation Neurological exam: ABSENT: oriented to person, oriented to place, oriented to time, oriented to situation Psychiatric exam: PRESENT: agitated Skin exam: PRESENT: dry, warm Results Laboratory Results: 03/22/18 06:00 03/22/18 06:00 03/22/18 03/22/18 06:00 06:00 WBC 20.2 H RBC 3.83 Hgb 11.7 L Hct 36.5 MCV 95 MCH 30.4 MCHC 31.9 L RDW 17.5 H Plt Count 436 Seg Neutrophils % Not Reportable Lymphocytes % Not Reportable Monocytes % Not Reportable Eosinophils % Not Reportable Basophils % Not Reportable Absolute Neutrophils Not Reportable Absolute Lymphocytes Not Reportable Absolute Monocytes Not Reportable Absolute Eosinophils Not Reportable Absolute Basophils Not Reportable Sodium 140.1 Potassium 5.2 H Chloride 100 Carbon Dioxide 20 L Anion Gap 20 H BUN 56 H Creatinine 4.99 H Est GFR ( Amer) 10 L Est GFR (Non-Af Amer) 8 L Glucose 69 L Calcium 9.4 Impressions: Chest X-Ray 03/20/18 00:00 IMPRESSION: Improving pneumonia or asymmetric edema. Assessment & Plan - Diagnosis (1) Acute respiratory distress Is this a current diagnosis for this admission?: No (2) Dementia Qualifiers: Dementia type: unspecified type Dementia behavioral disturbance: without behavioral disturbance Qualified Code(s): F03.90 - Unspecified dementia without behavioral disturbance Is this a current diagnosis for this admission?: Yes Plan: worse today (3) Pneumonia Qualifiers: Pneumonia type: due to unspecified organism Laterality: right Lung location: unspecified part of lung Qualified Code(s): J18.9 - Pneumonia, unspecified organism Is this a current diagnosis for this admission?: Yes Plan: wbc decreasing cxr improved (4) Anemia due to chronic kidney disease treated with erythropoietin Is this a current diagnosis for this admission?: Yes (5) Dialysis AV fistula malfunction Qualifiers: Encounter type: initial encounter Qualified Code(s): T82.590A - Other mechanical complication of surgically created arteriovenous fistula, initial encounter Is this a current diagnosis for this admission?: Yes
--- NOTE | 2018-03-22 12:36 | PDOC PROGRESS REPORT ---
Subjective Progress Note for:: 03/22/18 Subjective:: Patient is currently feeling more sick not able to take any p.o. daughter and the bedside when the patient on a dialysis bed but unable to cooperate Reason For Visit: PNEUMONIA t82.858a Physical Exam Vital Signs: Temp Pulse Resp BP Pulse Ox 99.7 F 107 H 20 163/47 H 98 03/22/18 07:21 03/22/18 07:21 03/22/18 07:21 03/22/18 07:21 03/22/18 07:21 Intake & Output 03/21/18 03/22/18 03/23/18 06:59 06:59 06:59 Intake Total 1486 130 Output Total 2200 0 Balance -714 130 Weight 43.9 kg 43.9 kg General appearance: PRESENT: no acute distress Eye exam: PRESENT: PERRLA Mouth exam: PRESENT: neck supple Respiratory exam: PRESENT: decreased breath sounds Cardiovascular exam: PRESENT: +S1, +S2 GI/Abdominal exam: PRESENT: normal bowel sounds, soft Extremities exam: ABSENT: pedal edema Neurological exam: PRESENT: alert, altered, awake Psychiatric exam: PRESENT: agitated, anxious Results Laboratory Results: 03/22/18 06:00 03/22/18 06:00 03/22/18 03/22/18 06:00 06:00 WBC 20.2 H RBC 3.83 Hgb 11.7 L Hct 36.5 MCV 95 MCH 30.4 MCHC 31.9 L RDW 17.5 H Plt Count 436 Seg Neutrophils % Not Reportable Lymphocytes % Not Reportable Monocytes % Not Reportable Eosinophils % Not Reportable Basophils % Not Reportable Absolute Neutrophils Not Reportable Absolute Lymphocytes Not Reportable Absolute Monocytes Not Reportable Absolute Eosinophils Not Reportable Absolute Basophils Not Reportable Sodium 140.1 Potassium 5.2 H Chloride 100 Carbon Dioxide 20 L Anion Gap 20 H BUN 56 H Creatinine 4.99 H Est GFR ( Amer) 10 L Est GFR (Non-Af Amer) 8 L Glucose 69 L Calcium 9.4 Impressions: Chest X-Ray 03/20/18 00:00 IMPRESSION: Improving pneumonia or asymmetric edema. Assessment & Plan - Diagnosis (1) Pneumonia Qualifiers: Pneumonia type: due to unspecified organism Laterality: right Lung location: unspecified part of lung Qualified Code(s): J18.9 - Pneumonia, unspecified organism Is this a current diagnosis for this admission?: Yes Plan: Continues to antibiotic (2) Acute respiratory distress Is this a current diagnosis for this admission?: No Plan: Currently all stable (3) Chronic obstructive pulmonary disease Qualifiers: Emphysema type: unspecified Is this a current diagnosis for this admission?: Yes Plan: Continues to nebulizer treatments (4) Dialysis AV fistula malfunction Qualifiers: Encounter type: initial encounter Qualified Code(s): T82.590A - Other mechanical complication of surgically created arteriovenous fistula, initial encounter Is this a current diagnosis for this admission?: Yes (5) End stage renal disease on dialysis Is this a current diagnosis for this admission?: Yes Plan: Currently on hemodialysis (6) Hypertension Qualifiers: Hypertension type: essential hypertension Qualified Code(s): I10 - Essential (primary) hypertension Is this a current diagnosis for this admission?: Yes Plan: Continues to current medications (7) CAD (coronary artery disease) Qualifiers: Coronary Disease-Associated Artery/Lesion type: unspecified vessel or lesion type Is this a current diagnosis for this admission?: Yes Plan: Currently stable (8) Diabetes mellitus Qualifiers: Diabetes mellitus type: type 2 Is this a current diagnosis for this admission?: Yes (9) CHF (congestive heart failure) Qualifiers: Heart failure type: diastolic Is this a current diagnosis for this admission?: Yes (10) Dementia Qualifiers: Dementia type: unspecified type Dementia behavioral disturbance: without behavioral disturbance Qualified Code(s): F03.90 - Unspecified dementia without behavioral disturbance Is this a current diagnosis for this admission?: Yes Plan: Currently all stable - Time Time Spent with patient: 15-24 minutes Medications reviewed and adjusted accordingly: Yes Anticipated discharge: Other Within: Other - Inpatient Certification Medical Necessity: Need Close Monitoring Due to Risk of Patient Decompensation Post Hospital Care: D/C Local Delivery Driver Documentation - Plan Summary Plan Summary: Discussed with the daughter with the patient several multiple comorbidity patient have a lot of pain issue due to the compression fracture and severe also osteoarthritis daughter wants to try some IV pain medications and try to make her more comfortable We will start the patient on the Dilaudid 0.5 mg IV every 4 as needed and discussed with the daughter and as per Dr. Rodriguez if the patient is not comfortable then he is not prefer to get the dialysis in the daughters pretty much once the patient's more comfortable If the pain medication works and patient is comfortable then the dialysis nurses suggest that she will do the dialysis as per Dr. Rodriguez otherwise patient 's sister currently DNR/DNI and comfort measures Discussed with the patient's daughter and agree
[2018-03-22] MEDS: HYDROMORPHONE HCL INJ/PF 2 MG/ML AMPULE IV PRN ×3 (13:00→21:07)
[2018-03-22] MEDS: CITALOPRAM HYDROBROMIDE 20 MG TABLET PO SCH (13:02)
[2018-03-22] MEDS: AMLODIPINE BESYLATE 10 MG TABLET PO SCH (13:02)
[2018-03-22] MEDS: FUROSEMIDE 40 MG TABLET PO SCH ×2 (13:03→17:25)
[2018-03-22] MEDS: ALLOPURINOL 100 MG TABLET PO SCH (13:03)
[2018-03-22] MEDS: ASPIRIN 81 MG TABLET, ENT COATED PO SCH (13:07)
[2018-03-22] MEDS: GUAIFENESIN 600 MG TABLET.SA PO SCH ×2 (13:07→23:53)
--- NOTE | 2018-03-22 13:27 | PDOC PROGRESS REPORT ---
Subjective Progress Note for:: 03/22/18 Reason For Visit: Patient seen today on dialysis. She is currently sedated with IV Dilaudid after she was delirious earlier today. Had a long discussion with Dr. Zamorano and he has discussed the patient with her daughter. In spite of the fact that she is a DNR the daughter wanted to continue on dialysis if it was possible. Since the Dilaudid has been administered the patient is sleeping and dialysis is in process without any issues in the moment.There is no apparent history of any headaches or witnessed seizures. No apparent history of any fever or chills. Patient is on antibiotics for her pneumonia. Labs and medications were reviewed. Orders were reviewed with the treating dialysis nurse. Physical Exam Vital Signs: Temp Pulse Resp BP Pulse Ox 99.7 F 107 H 20 163/47 H 98 03/22/18 07:21 03/22/18 07:21 03/22/18 07:21 03/22/18 07:21 03/22/18 07:21 Intake & Output 03/21/18 03/22/18 03/23/18 06:59 06:59 06:59 Intake Total 1486 130 Output Total 2200 0 Balance -714 130 Weight 43.9 kg 43.9 kg Exam: Patient is sedated and looking comfortable and sleeping. Did not try to wake her up. Respiratory exam: PRESENT: clear to auscultation irma. ABSENT: crackles Cardiovascular exam: PRESENT: +S1, +S2, systolic murmur GI/Abdominal exam: PRESENT: normal bowel sounds, soft. ABSENT: organomegaly, tenderness Extremities exam: ABSENT: pedal edema Neurological exam: PRESENT: altered Results Laboratory Results: 03/22/18 06:00 03/22/18 06:00 03/22/18 03/22/18 06:00 06:00 WBC 20.2 H RBC 3.83 Hgb 11.7 L Hct 36.5 MCV 95 MCH 30.4 MCHC 31.9 L RDW 17.5 H Plt Count 436 Seg Neutrophils % Not Reportable Lymphocytes % Not Reportable Monocytes % Not Reportable Eosinophils % Not Reportable Basophils % Not Reportable Absolute Neutrophils Not Reportable Absolute Lymphocytes Not Reportable Absolute Monocytes Not Reportable Absolute Eosinophils Not Reportable Absolute Basophils Not Reportable Sodium 140.1 Potassium 5.2 H Chloride 100 Carbon Dioxide 20 L Anion Gap 20 H BUN 56 H Creatinine 4.99 H Est GFR ( Amer) 10 L Est GFR (Non-Af Amer) 8 L Glucose 69 L Calcium 9.4 Impressions: Chest X-Ray 03/20/18 00:00 IMPRESSION: Improving pneumonia or asymmetric edema. Assessment & Plan - Diagnosis (1) End stage renal disease on dialysis Is this a current diagnosis for this admission?: Yes Plan: Patient being seen on dialysis today. Is being supervised to ensure safe and smooth procedure. Vital signs are stable. As mentioned earlier the patient was delirious this morning. She was then given IV Dilaudid and seems to be resting comfortably and sleeping. She is undergoing dialysis now without any issues. However We will plan to remove approximately 1 L of fluid as tolerated. Orders were again reviewed with the treating dialysis nurse. (2) Acute respiratory distress Is this a current diagnosis for this admission?: No Plan: Combination of pneumonia and early congestive heart failure. She has done well since admission. (3) Pneumonia Qualifiers: Pneumonia type: due to unspecified organism Laterality: right Lung location: unspecified part of lung Qualified Code(s): J18.9 - Pneumonia, unspecified organism Is this a current diagnosis for this admission?: Yes Plan: She has now worsening leukocytosis.This could be an indication that she has probably aspirated although is some drug-resistant bacteria. She looks critical at the moment. However given her age and comorbidities I would rather she be kept comfortable. (4) Anemia due to chronic kidney disease treated with erythropoietin Is this a current diagnosis for this admission?: Yes Plan: Stable. No indication for Procrit. (5) Hypertension Qualifiers: Hypertension type: essential hypertension Qualified Code(s): I10 - Essential (primary) hypertension Is this a current diagnosis for this admission?: Yes Plan: Controlled. (6) Diastolic congestive heart failure Plan: See response to dialysis. Orders reviewed with the treating dialysis nurse. (7) Hyperkalemia Plan: Should respond to dialysis. Monitor.
[2018-03-22] MEDS: VANCOMYCIN HCL 750 MG in DEXTROSE 5%-WATER 250 ML IV SCH (17:20)
[2018-03-22] MEDS: CEFEPIME 2 GM/D5W RTU 2 GM/50 ML RTUPB IV SCH (23:50)
[2018-03-23] MEDS: HYDROMORPHONE HCL INJ/PF 2 MG/ML AMPULE IV PRN ×4 (00:50→17:50)
[2018-03-23] MEDS: CLONIDINE HCL 0.1 MG TABLET PO SCH ×3 (05:41→21:11)
[2018-03-23] MEDS: HEPARIN SOD (PORCINE) 5,000 UNIT/ML 1 ML SYRINGE SUBCUT SCH ×3 (05:41→21:11)
[2018-03-23] MEDS: LANSOPRAZOLE 30 MG TAB.RAP.DR PO SCH (05:41)
[2018-03-23] MEDS: LEVOTHYROXINE SODIUM 0.05 MG TABLET PO SCH (05:41)
[2018-03-23] MEDS: IPRATROPIUM/ALBUTEROL 0.5-2.5 MG/3 ML AMPUL NEB SCH ×3 (08:37→19:56)
[2018-03-23] MEDS: FUROSEMIDE 40 MG TABLET PO SCH ×2 (10:12→17:11)
[2018-03-23] MEDS: ASPIRIN 81 MG TABLET, ENT COATED PO SCH (10:13)
[2018-03-23] MEDS: SEVELAMER HCL 400 MG TABLET PO SCH ×3 (10:13→15:32)
[2018-03-23] MEDS: CITALOPRAM HYDROBROMIDE 20 MG TABLET PO SCH (10:13)
[2018-03-23] MEDS: AMLODIPINE BESYLATE 10 MG TABLET PO SCH (10:13)
[2018-03-23] MEDS: GUAIFENESIN 600 MG TABLET.SA PO SCH ×2 (10:13→21:11)
[2018-03-23] MEDS: ALLOPURINOL 100 MG TABLET PO SCH (10:13)
[2018-03-23] MEDS ORDERED: ALPRAZOLAM 0.25 MG TABLET PO PRN (16:02)
--- NOTE | 2018-03-23 16:02 | PDOC PROGRESS REPORT ---
Subjective Progress Note for:: 03/23/18 Subjective:: Nursing staff reported anxiety and expressed discomfort from pain. Poor oral intake. Family at bedside during time of my visit. Remain on DNR status. Reason For Visit: PNEUMONIA t82.858a Physical Exam Vital Signs: Temp Pulse Resp BP Pulse Ox 98.9 F 98 14 159/52 H 96 03/23/18 15:16 03/23/18 15:16 03/23/18 15:16 03/23/18 15:16 03/23/18 15:16 Intake & Output 03/22/18 03/23/18 03/24/18 06:59 06:59 06:59 Intake Total 130 370 0 Output Total 0 900 Balance 130 -530 0 Weight 43.9 kg 42.5 kg General appearance: PRESENT: mild distress Head exam: PRESENT: atraumatic, normocephalic Mouth exam: PRESENT: moist - fairly moist Respiratory exam: PRESENT: decreased breath sounds Cardiovascular exam: PRESENT: RRR, +S1, +S2. ABSENT: diastolic murmur, rubs, systolic murmur Vascular exam: ABSENT: pallor GI/Abdominal exam: PRESENT: normal bowel sounds, soft Neurological exam: PRESENT: alert, awake Psychiatric exam: PRESENT: agitated, anxious Skin exam: PRESENT: dry, warm, other - left arm AV fistula site dressing okay. Results Laboratory Results: 03/22/18 06:00 03/22/18 06:00 Impressions: Chest X-Ray 03/20/18 00:00 IMPRESSION: Improving pneumonia or asymmetric edema. Assessment & Plan - Diagnosis (1) Pneumonia Qualifiers: Pneumonia type: due to unspecified organism Laterality: right Lung location: unspecified part of lung Qualified Code(s): J18.9 - Pneumonia, unspecified organism Is this a current diagnosis for this admission?: Yes Plan: See covering attending physician orders. (2) Acute respiratory distress Is this a current diagnosis for this admission?: No Plan: See covering attending physician orders. (3) Chronic obstructive pulmonary disease Qualifiers: Emphysema type: unspecified Is this a current diagnosis for this admission?: Yes Plan: See covering attending physician orders. (4) Dementia with behavioral disturbance Qualifiers: Dementia type: Alzheimer's disease Alzheimer's disease onset: late-onset Qualified Code(s): G30.1 - Alzheimer's disease with late onset; F02.81 - Dementia in other diseases classified elsewhere with behavioral disturbance; F02.81 - Dementia in other diseases classified elsewhere with behavioral disturbance; F02.81 - Dementia in other diseases classified elsewhere with behavioral disturbance Is this a current diagnosis for this admission?: Yes Plan: See covering attending physician orders. (5) Weakness generalized Is this a current diagnosis for this admission?: Yes Plan: See covering attending physician orders. - Time Time Spent with patient: 25-34 minutes Medications reviewed and adjusted accordingly: Yes Anticipated discharge: Home with Homehealth Within: Other - Inpatient Certification Based on my medical assessment, after consideration of the patient's comorbidities, presenting symptoms, or acuity I expect that the services needed warrant INPATIENT care.: Yes I certify that my determination is in accordance with my understanding of Medicare's requirements for reasonable and necessary INPATIENT services [42 CFR 412.3e].: Yes Medical Necessity: Need Close Monitoring Due to Risk of Patient Decompensation, Need For IV Fluids, Need For Continuous Telemetry Monitoring, Need for IV Antibiotics, Risk of Complication if Not Cared For in Hospital Post Hospital Care: D/C Window Maker Documentation - Plan Summary Plan Summary: See covering attending physician orders.
[2018-03-23] MEDS: GLUCAGON,HUMAN RECOMB 1 MG INJ IM PRN ×2 (16:14→17:00)
[2018-03-23] MEDS: DEXTROSE 50%-WATER 25 GM/50 ML DISP.SYRIN IV PRN (17:39)
[2018-03-24] MEDS: DEXTROSE 50%-WATER 25 GM/50 ML DISP.SYRIN IV PRN ×2 (00:24→01:59)
[2018-03-24] MEDS: HYDROMORPHONE HCL INJ/PF 2 MG/ML AMPULE IV PRN ×5 (00:32→20:21)
[2018-03-24] MEDS: LORAZEPAM INJ 2 MG/1 ML VIAL IV PRN (03:45)
[2018-03-24] MEDS: HEPARIN SOD (PORCINE) 5,000 UNIT/ML 1 ML SYRINGE SUBCUT SCH ×3 (05:15→20:40)
[2018-03-24] MEDS: LEVOTHYROXINE SODIUM 0.05 MG TABLET PO SCH (05:15)
[2018-03-24] MEDS: LANSOPRAZOLE 30 MG TAB.RAP.DR PO SCH (05:15)
[2018-03-24] MEDS: CLONIDINE HCL 0.1 MG TABLET PO SCH ×3 (05:15→20:40)
[2018-03-24] MEDS: SEVELAMER HCL 400 MG TABLET PO SCH ×3 (07:30→15:38)
[2018-03-24] MEDS ORDERED: ACETAMINOPHEN 650 MG SUPP.RECT PR PRN ×2 (07:55→08:00)
[2018-03-24] MEDS: IPRATROPIUM/ALBUTEROL 0.5-2.5 MG/3 ML AMPUL NEB SCH ×3 (08:43→20:17)
[2018-03-24] MEDS: ASPIRIN 81 MG TABLET, ENT COATED PO SCH (10:01)
[2018-03-24] MEDS: GUAIFENESIN 600 MG TABLET.SA PO SCH ×2 (10:01→20:40)
[2018-03-24] MEDS: FUROSEMIDE 40 MG TABLET PO SCH ×2 (10:01→17:13)
[2018-03-24] MEDS: CITALOPRAM HYDROBROMIDE 20 MG TABLET PO SCH (10:01)
[2018-03-24] MEDS: ALLOPURINOL 100 MG TABLET PO SCH (10:01)
[2018-03-24] MEDS: AMLODIPINE BESYLATE 10 MG TABLET PO SCH (10:01)
--- NOTE | 2018-03-24 19:20 | PDOC PROGRESS REPORT ---
Subjective Progress Note for:: 03/24/18 Subjective:: Her poor oral intake persist, mainly sip on orange juice. Family at bedside during time of my visit. Remain on DNR status. Reason For Visit: PNEUMONIA t82.858a Physical Exam Vital Signs: Temp Pulse Resp BP Pulse Ox 98.9 F 85 15 158/55 H 100 03/24/18 15:14 03/24/18 15:14 03/24/18 15:14 03/24/18 15:14 03/24/18 15:14 Intake & Output 03/23/18 03/24/18 03/25/18 06:59 06:59 06:59 Intake Total 370 170 40 Output Total 900 Balance -530 170 40 Weight 42.5 kg 42.8 kg Physical Exam: General appearance: PRESENT: mild distress Head exam: PRESENT: atraumatic, normocephalic Mouth exam: PRESENT: moist - fairly moist Respiratory exam: PRESENT: decreased breath sounds Cardiovascular exam: PRESENT: RRR, +S1, +S2. ABSENT: diastolic murmur, rubs, systolic murmur Vascular exam: ABSENT: pallor GI/Abdominal exam: PRESENT: normal bowel sounds, soft Neurological exam: PRESENT: alert, awake Psychiatric exam: PRESENT: agitated, anxious Skin exam: PRESENT: dry, warm, other - left arm AV fistula site dressing okay. Results Laboratory Results: 03/22/18 06:00 03/22/18 06:00 03/18/18 21:56 Blood Blood Culture - Final NO GROWTH IN 5 DAYS 03/18/18 19:35 Blood Blood Culture - Final NO GROWTH IN 5 DAYS Impressions: Chest X-Ray 03/20/18 00:00 IMPRESSION: Improving pneumonia or asymmetric edema. Assessment & Plan - Diagnosis (1) Pneumonia Qualifiers: Pneumonia type: due to unspecified organism Laterality: right Lung location: unspecified part of lung Qualified Code(s): J18.9 - Pneumonia, unspecified organism Is this a current diagnosis for this admission?: Yes (2) Acute respiratory distress Is this a current diagnosis for this admission?: No (3) Chronic obstructive pulmonary disease Qualifiers: Emphysema type: unspecified Is this a current diagnosis for this admission?: Yes (4) Dementia with behavioral disturbance Qualifiers: Dementia type: Alzheimer's disease Alzheimer's disease onset: late-onset Qualified Code(s): G30.1 - Alzheimer's disease with late onset; F02.81 - Dementia in other diseases classified elsewhere with behavioral disturbance; F02.81 - Dementia in other diseases classified elsewhere with behavioral disturbance; F02.81 - Dementia in other diseases classified elsewhere with behavioral disturbance Is this a current diagnosis for this admission?: Yes (5) Weakness generalized Is this a current diagnosis for this admission?: Yes - Time Time Spent with patient: 25-34 minutes Medications reviewed and adjusted accordingly: Yes Anticipated discharge: Home with Homehealth Within: Other - Inpatient Certification Based on my medical assessment, after consideration of the patient's comorbidities, presenting symptoms, or acuity I expect that the services needed warrant INPATIENT care.: Yes I certify that my determination is in accordance with my understanding of Medicare's requirements for reasonable and necessary INPATIENT services [42 CFR 412.3e].: Yes Medical Necessity: Need Close Monitoring Due to Risk of Patient Decompensation, Need For IV Fluids, Risk of Complication if Not Cared For in Hospital 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 Overall prognosis remain poor.
[2018-03-24] MEDS ORDERED: DEXTROSE 5%-NORMAL SALINE 1,000 ML IV PRN (20:28)
[2018-03-25] MEDS ORDERED: NORMAL SALINE 1000 ML 1,000 ML IV PRN (00:27)
[2018-03-25] MEDS: HYDROMORPHONE HCL INJ/PF 2 MG/ML AMPULE IV PRN ×6 (01:21→23:11)
[2018-03-25] MEDS: LORAZEPAM INJ 2 MG/1 ML VIAL IV PRN ×3 (02:51→21:56)
[2018-03-25] MEDS: HEPARIN SOD (PORCINE) 5,000 UNIT/ML 1 ML SYRINGE SUBCUT SCH ×3 (05:40→23:12)
[2018-03-25] MEDS: CLONIDINE HCL 0.1 MG TABLET PO SCH ×3 (05:40→22:11)
[2018-03-25] MEDS: LANSOPRAZOLE 30 MG TAB.RAP.DR PO SCH (05:40)
[2018-03-25] MEDS: LEVOTHYROXINE SODIUM 0.05 MG TABLET PO SCH (05:40)
[2018-03-25] MEDS: IPRATROPIUM/ALBUTEROL 0.5-2.5 MG/3 ML AMPUL NEB SCH ×3 (08:27→20:03)
[2018-03-25] MEDS: SEVELAMER HCL 400 MG TABLET PO SCH ×3 (09:00→15:16)
[2018-03-25] MEDS: AMLODIPINE BESYLATE 10 MG TABLET PO SCH (11:25)
[2018-03-25] MEDS: ALLOPURINOL 100 MG TABLET PO SCH (11:25)
[2018-03-25] MEDS: ASPIRIN 81 MG TABLET, ENT COATED PO SCH (11:25)
[2018-03-25] MEDS: FUROSEMIDE 40 MG TABLET PO SCH ×2 (11:25→18:46)
[2018-03-25] MEDS: GUAIFENESIN 600 MG TABLET.SA PO SCH ×2 (11:25→22:11)
[2018-03-25] MEDS: CITALOPRAM HYDROBROMIDE 20 MG TABLET PO SCH (11:25)
[2018-03-25 12:02] LABS: HEMATOCRIT 35.4 % (36.0-47.0); MEAN CORPUSCULAR HEMOGLOBIN 30.2 pg (27.0-33.4); MEAN CORPUSCULAR HGB CONC 31.1 g/dL (32.0-36.0); MEAN CORPUSCULAR VOLUME 97 fl (80-97); PLATELET COUNT 373 10^3/uL (150-450); RED BLOOD COUNT 3.65 10^6/uL (3.72-5.28); WHITE BLOOD COUNT 17.7 10^3/uL (4.0-10.5)
[2018-03-25 12:06] LABS: ANION GAP 18 (5-19); BLOOD UREA NITROGEN 51 mg/dL (7-20); CALCIUM 8.9 mg/dL (8.4-10.2); CARBON DIOXIDE 24 mmol/L (22-30); CHLORIDE 105 mmol/L (98-107); GLUCOSE 77 mg/dL (75-110); POTASSIUM 4.6 mmol/L (3.6-5.0); SODIUM 146.8 mmol/L (137-145)
[2018-03-25 12:29] LABS: ABSOLUTE LYMPHOCYTES# (MANUAL) 1.2 10^3/uL (0.5-4.7); ABSOLUTE MONOCYTES # (MANUAL) 0.5 10^3/uL (0.1-1.4); ABSOLUTE NEUTROPHILS# (MANUAL) 15.8 10^3/uL (1.7-8.2); BAND NEUTROPHILS % (MANUAL) 1 % (3-5); BASOPHILS % (MANUAL) 1 % (0-2); EOSINOPHILS % (MANUAL) 0 % (0-6); LYMPHOCYTES % (MANUAL) 7 % (13-45); METAMYELOCYTES % (MANUAL) 1 % (0); MONOCYTES % (MANUAL) 3 % (3-13); SEGMENTED NEUTROPHILS % (MAN) 87 % (42-78); TOTAL CELLS COUNTED 100
[2018-03-25 12:31] LABS: ANISOCYTOSIS 2+; PLATELET CLUMPS PRESENT
[2018-03-25 12:32] LABS: HYPOCHROMASIA 1+; OVALOCYTES 1+; POIKILOCYTOSIS 1+
--- NOTE | 2018-03-25 15:23 | PDOC PROGRESS REPORT ---
Subjective Progress Note for:: 03/25/18 - Coverage for Dr. Rodriguez Subjective:: I am seeing the patient on dialysis this afternoon. Patient is seen to be very restless while the nurses are trying to get an IV line on her right arm. After the IV line was inserted the patient calmed down. Initially the daughter who is at bedside and is tearful is consenting on stopping the dialysis right now because she was so restless and seems to be hurting. However once the patient calmed down and seems to be tolerating the procedure well she agreed to continue dialysis for as long as she tolerates. So we will continue to monitor the patient and if at any time she becomes unstable or become restless again then we will stop dialysis treatment. Patient apparently was also given Dilaudid earlier. Reason For Visit: ESRD on hemodialysis Physical Exam Vital Signs: Temp Pulse Resp BP Pulse Ox 98.2 F 85 14 159/53 H 100 03/25/18 11:35 03/25/18 11:35 03/25/18 11:35 03/25/18 11:35 03/25/18 11:35 Intake & Output 03/24/18 03/25/18 03/26/18 06:59 06:59 06:59 Intake Total 170 190 0 Balance 170 190 0 Weight 42.8 kg Vitals during dialysis: Blood pressure 154/65, heart rate of 62, blood flow rate of 400 mL/min, dialysate flow rate 800 mL/min using her AV fistula. Exam: General appearance: PRESENT: no acute respiratory distress, initially restless both calmed down after IV was inserted, patient does not verbalize complaints, looks emaciated Head exam: PRESENT: atraumatic, normocephalic Eye exam: PRESENT: conjunctiva pale, PERRLA. ABSENT: scleral icterus Neck exam: ABSENT: JVD Respiratory exam: PRESENT: Diminished breath sounds. ABSENT: crackles, rales, rhonchi, unlabored, wheezes Cardiovascular exam: PRESENT: Irregular rate rhythm -+S1, +S2. ABSENT: diastolic murmur, systolic murmur GI/Abdominal exam: PRESENT: normal bowel sounds, soft. ABSENT: guarding, mass, tenderness Extremities exam: ABSENT: No edema Neurological exam: PRESENT: Awake, confused. Does not follow commands nor answer any questions Skin exam: PRESENT: dry, warm, Cardiovascular exam: PRESENT: +S1, +S2, systolic murmur GI/Abdominal exam: PRESENT: normal bowel sounds, soft. ABSENT: organomegaly, tenderness Results Laboratory Results: 03/25/18 11:45 03/25/18 11:45 03/25/18 03/25/18 03/25/18 06:03 06:03 10:05 WBC Cancelled RBC Cancelled Hgb Cancelled Hct Cancelled MCV Cancelled MCH Cancelled MCHC Cancelled RDW Cancelled Plt Count Cancelled Seg Neutrophils % Cancelled Lymphocytes % Cancelled Monocytes % Cancelled Eosinophils % Cancelled Basophils % Cancelled Absolute Neutrophils Cancelled Absolute Lymphocytes Cancelled Absolute Monocytes Cancelled Absolute Eosinophils Cancelled Absolute Basophils Cancelled Sodium Cancelled Cancelled Potassium Cancelled Cancelled Chloride Cancelled Cancelled Carbon Dioxide Cancelled Cancelled Anion Gap Cancelled Cancelled BUN Cancelled Cancelled Creatinine Cancelled Cancelled Est GFR ( Amer) Cancelled Cancelled Est GFR (Non-Af Amer) Cancelled Cancelled Glucose Cancelled Cancelled Calcium Cancelled Cancelled 03/25/18 03/25/18 03/25/18 10:05 11:45 11:45 WBC Cancelled 17.7 H RBC Cancelled 3.65 L Hgb Cancelled 11.0 L Hct Cancelled 35.4 L MCV Cancelled 97 MCH Cancelled 30.2 MCHC Cancelled 31.1 L RDW Cancelled 17.0 H Plt Count Cancelled 373 Seg Neutrophils % Cancelled Not Reportable Lymphocytes % Cancelled Not Reportable Monocytes % Cancelled Not Reportable Eosinophils % Cancelled Not Reportable Basophils % Cancelled Not Reportable Absolute Neutrophils Cancelled Not Reportable Absolute Lymphocytes Cancelled Not Reportable Absolute Monocytes Cancelled Not Reportable Absolute Eosinophils Cancelled Not Reportable Absolute Basophils Cancelled Not Reportable Sodium 146.8 H Potassium 4.6 Chloride 105 Carbon Dioxide 24 Anion Gap 18 BUN 51 H Creatinine 5.24 H Est GFR ( Amer) 9 L Est GFR (Non-Af Amer) 8 L Glucose 77 Calcium 8.9 Impressions: Chest X-Ray 03/20/18 00:00 IMPRESSION: Improving pneumonia or asymmetric edema. Assessment & Plan - Diagnosis (1) End stage renal disease on dialysis Is this a current diagnosis for this admission?: Yes Plan: We will do dialysis today for 3 hours, however the patient shows any instability hemodynamically or restlessness then we are going to have to reduce treatment time, using the patient's AV fistula, with 2 potassium bath, blood flow rate of 400 mL per minute, dialysate flow rate of 800 mL per minute, ultrafiltration 500-1000 mL as tolerated only, no heparin and no Procrit during dialysis. Patient will be monitored throughout the course of hemodialysis treatment. Daughter aware and consented about continued dialysis treatment for now. (2) Pneumonia Qualifiers: Pneumonia type: due to unspecified organism Laterality: right Lung location: unspecified part of lung Qualified Code(s): J18.9 - Pneumonia, unspecified organism Is this a current diagnosis for this admission?: Yes Plan: On antibiotics. (3) Diastolic congestive heart failure Is this a current diagnosis for this admission?: Yes Plan: Improved per chest x-ray on 03/20. (4) Anemia due to chronic kidney disease treated with erythropoietin Is this a current diagnosis for this admission?: Yes Plan: She does not need Procrit today. (5) Hypertension Qualifiers: Hypertension type: essential hypertension Qualified Code(s): I10 - Essential (primary) hypertension Is this a current diagnosis for this admission?: Yes Plan: Continue current medications. (6) Dementia Qualifiers: Dementia type: unspecified type Dementia behavioral disturbance: without behavioral disturbance Qualified Code(s): F03.90 - Unspecified dementia without behavioral disturbance Is this a current diagnosis for this admission?: Yes - Notes Notes: Discussed plan with patient's daughter at bedside to continue dialysis as long as she tolerates and she agrees for now. - Time Time with patient: 15-25 minutes
[2018-03-25 18:13] LABS: VANCOMYCIN,TROUGH 15.9 ug/mL (5.0-20.0)
--- NOTE | 2018-03-25 18:14 | PDOC PROGRESS REPORT ---
Subjective Progress Note for:: 03/25/18 Subjective:: Patient had episode of agitation earlier today but presently calm. Daughter at bedside. PO intake remain poor. Remain on DNR status. I had extensive discussion with daughter who has POA for the patient and at this time decided to make patient comfort care. Reason For Visit: PNEUMONIA t82.858a Physical Exam Vital Signs: Temp Pulse Resp BP Pulse Ox 98.2 F 106 H 14 159/53 H 100 03/25/18 11:35 03/25/18 14:00 03/25/18 11:35 03/25/18 11:35 03/25/18 11:35 Intake & Output 03/24/18 03/25/18 03/26/18 06:59 06:59 06:59 Intake Total 170 190 0 Balance 170 190 0 Weight 42.8 kg Physical Exam: General appearance: PRESENT: mild distress Head exam: PRESENT: atraumatic, normocephalic Mouth exam: PRESENT: moist - fairly moist Respiratory exam: PRESENT: decreased breath sounds Cardiovascular exam: PRESENT: RRR, +S1, +S2. ABSENT: diastolic murmur, rubs, systolic murmur Vascular exam: ABSENT: pallor GI/Abdominal exam: PRESENT: normal bowel sounds, soft Neurological exam: PRESENT: alert, awake Psychiatric exam: PRESENT: agitated, anxious Skin exam: PRESENT: dry, warm, other - left arm AV fistula site dressing okay. Results Laboratory Results: 03/25/18 11:45 03/25/18 11:45 03/25/18 03/25/18 03/25/18 06:03 06:03 10:05 WBC Cancelled RBC Cancelled Hgb Cancelled Hct Cancelled MCV Cancelled MCH Cancelled MCHC Cancelled RDW Cancelled Plt Count Cancelled Seg Neutrophils % Cancelled Lymphocytes % Cancelled Monocytes % Cancelled Eosinophils % Cancelled Basophils % Cancelled Absolute Neutrophils Cancelled Absolute Lymphocytes Cancelled Absolute Monocytes Cancelled Absolute Eosinophils Cancelled Absolute Basophils Cancelled Sodium Cancelled Cancelled Potassium Cancelled Cancelled Chloride Cancelled Cancelled Carbon Dioxide Cancelled Cancelled Anion Gap Cancelled Cancelled BUN Cancelled Cancelled Creatinine Cancelled Cancelled Est GFR ( Amer) Cancelled Cancelled Est GFR (Non-Af Amer) Cancelled Cancelled Glucose Cancelled Cancelled Calcium Cancelled Cancelled 03/25/18 03/25/18 03/25/18 10:05 11:45 11:45 WBC Cancelled 17.7 H RBC Cancelled 3.65 L Hgb Cancelled 11.0 L Hct Cancelled 35.4 L MCV Cancelled 97 MCH Cancelled 30.2 MCHC Cancelled 31.1 L RDW Cancelled 17.0 H Plt Count Cancelled 373 Seg Neutrophils % Cancelled Not Reportable Lymphocytes % Cancelled Not Reportable Monocytes % Cancelled Not Reportable Eosinophils % Cancelled Not Reportable Basophils % Cancelled Not Reportable Absolute Neutrophils Cancelled Not Reportable Absolute Lymphocytes Cancelled Not Reportable Absolute Monocytes Cancelled Not Reportable Absolute Eosinophils Cancelled Not Reportable Absolute Basophils Cancelled Not Reportable Sodium 146.8 H Potassium 4.6 Chloride 105 Carbon Dioxide 24 Anion Gap 18 BUN 51 H Creatinine 5.24 H Est GFR ( Amer) 9 L Est GFR (Non-Af Amer) 8 L Glucose 77 Calcium 8.9 Impressions: Chest X-Ray 03/20/18 00:00 IMPRESSION: Improving pneumonia or asymmetric edema. Assessment & Plan - Diagnosis (1) Pneumonia Qualifiers: Pneumonia type: due to unspecified organism Laterality: right Lung location: unspecified part of lung Qualified Code(s): J18.9 - Pneumonia, unspecified organism Is this a current diagnosis for this admission?: Yes (2) Acute respiratory distress Is this a current diagnosis for this admission?: No (3) Chronic obstructive pulmonary disease Qualifiers: Emphysema type: unspecified Is this a current diagnosis for this admission?: Yes (4) Dementia with behavioral disturbance Qualifiers: Dementia type: Alzheimer's disease Alzheimer's disease onset: late-onset Qualified Code(s): G30.1 - Alzheimer's disease with late onset; F02.81 - Dementia in other diseases classified elsewhere with behavioral disturbance; F02.81 - Dementia in other diseases classified elsewhere with behavioral disturbance; F02.81 - Dementia in other diseases classified elsewhere with behavioral disturbance Is this a current diagnosis for this admission?: Yes (5) Weakness generalized Is this a current diagnosis for this admission?: Yes - Time Time Spent with patient: 25-34 minutes Medications reviewed and adjusted accordingly: Yes Anticipated discharge: Hospice Within: Other - Inpatient Certification Based on my medical assessment, after consideration of the patient's comorbidities, presenting symptoms, or acuity I expect that the services needed warrant INPATIENT care.: Yes I certify that my determination is in accordance with my understanding of Medicare's requirements for reasonable and necessary INPATIENT services [42 CFR 412.3e].: Yes Medical Necessity: Need Close Monitoring Due to Risk of Patient Decompensation, Need For IV Fluids, Need For Continuous Telemetry Monitoring, Risk of Complication if Not Cared For in Hospital 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
[2018-03-25] MEDS: VANCOMYCIN HCL 750 MG in DEXTROSE 5%-WATER 250 ML IV SCH (19:42)
[2018-03-25] MEDS: CEFEPIME 2 GM/D5W RTU 2 GM/50 ML RTUPB IV SCH (21:57)
[2018-03-26] MEDS: HYDROMORPHONE HCL INJ/PF 2 MG/ML AMPULE IV PRN ×8 (05:39→23:13)
[2018-03-26] MEDS: LANSOPRAZOLE 30 MG TAB.RAP.DR PO SCH (06:24)
[2018-03-26] MEDS: HEPARIN SOD (PORCINE) 5,000 UNIT/ML 1 ML SYRINGE SUBCUT SCH ×3 (06:24→21:24)
[2018-03-26] MEDS: CLONIDINE HCL 0.1 MG TABLET PO SCH ×3 (06:24→21:24)
[2018-03-26] MEDS: LEVOTHYROXINE SODIUM 0.05 MG TABLET PO SCH (06:24)
[2018-03-26] MEDS: SEVELAMER HCL 400 MG TABLET PO SCH ×3 (07:39→15:11)
[2018-03-26] MEDS: IPRATROPIUM/ALBUTEROL 0.5-2.5 MG/3 ML AMPUL NEB SCH ×3 (07:49→20:33)
[2018-03-26] MEDS: ASPIRIN 81 MG TABLET, ENT COATED PO SCH (09:12)
[2018-03-26] MEDS: ALLOPURINOL 100 MG TABLET PO SCH (09:12)
[2018-03-26] MEDS: AMLODIPINE BESYLATE 10 MG TABLET PO SCH (09:12)
[2018-03-26] MEDS: GUAIFENESIN 600 MG TABLET.SA PO SCH ×2 (09:12→21:24)
[2018-03-26] MEDS: CITALOPRAM HYDROBROMIDE 20 MG TABLET PO SCH (09:12)
[2018-03-26] MEDS: FUROSEMIDE 40 MG TABLET PO SCH ×2 (09:12→17:10)
--- NOTE | 2018-03-26 12:21 | PDOC PROGRESS REPORT ---
Subjective Progress Note for:: 03/26/18 Subjective:: obtunded Reason For Visit: PNEUMONIA t82.858a Physical Exam Vital Signs: Temp Pulse Resp BP Pulse Ox 98.4 F 78 17 162/78 H 100 03/26/18 07:13 03/26/18 07:13 03/26/18 07:13 03/26/18 07:13 03/26/18 07:13 Intake & Output 03/25/18 03/26/18 03/27/18 06:59 06:59 06:59 Intake Total 190 820 Output Total 450 Balance 190 370 Weight 41.6 kg General appearance: PRESENT: no acute distress, disheveled, well-developed. ABSENT: cooperative Head exam: PRESENT: atraumatic, normocephalic Eye exam: PRESENT: conjunctiva pale, EOMI. ABSENT: nystagmus, periorbital swelling, scleral icterus Mouth exam: PRESENT: dry mucosa, neck supple, tongue midline Neck exam: ABSENT: carotid bruit, JVD, lymphadenopathy, thyromegaly, tracheal deviation, tracheostomy Respiratory exam: PRESENT: decreased breath sounds, prolonged expiratory phas, rhonchi, unlabored. ABSENT: retraction, stridor, tachypnea Cardiovascular exam: PRESENT: RRR, +S1, +S2 Pulses: PRESENT: normal radial pulses GI/Abdominal exam: PRESENT: organolmegaly, soft Extremities exam: ABSENT: calf tenderness, clubbing Musculoskeletal exam: ABSENT: deformity, dislocation Neurological exam: PRESENT: awake. ABSENT: oriented to person, oriented to place, oriented to time, oriented to situation Psychiatric exam: PRESENT: agitated Focused psych exam: PRESENT: internal stimuli Skin exam: PRESENT: dry, warm Results Laboratory Results: 03/25/18 11:45 03/25/18 11:45 03/25/18 11:45 WBC 17.7 H RBC 3.65 L Hgb 11.0 L Hct 35.4 L MCV 97 MCH 30.2 MCHC 31.1 L RDW 17.0 H Plt Count 373 Seg Neutrophils % Not Reportable Lymphocytes % Not Reportable Monocytes % Not Reportable Eosinophils % Not Reportable Basophils % Not Reportable Absolute Neutrophils Not Reportable Absolute Lymphocytes Not Reportable Absolute Monocytes Not Reportable Absolute Eosinophils Not Reportable Absolute Basophils Not Reportable Impressions: Chest X-Ray 03/20/18 00:00 IMPRESSION: Improving pneumonia or asymmetric edema. Assessment & Plan - Diagnosis (1) Acute respiratory distress Is this a current diagnosis for this admission?: No (2) Dementia Qualifiers: Dementia type: unspecified type Dementia behavioral disturbance: without behavioral disturbance Qualified Code(s): F03.90 - Unspecified dementia without behavioral disturbance Is this a current diagnosis for this admission?: Yes Plan: worse today (3) Pneumonia Qualifiers: Pneumonia type: due to unspecified organism Laterality: right Lung location: unspecified part of lung Qualified Code(s): J18.9 - Pneumonia, unspecified organism Is this a current diagnosis for this admission?: Yes Plan: wbc decreasing cxr improved (4) 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 - Plan Summary Plan Summary: will sign off for now please call if I can be of additional assistance thank you very much for me see Ms. Crane and help participate in her care
--- NOTE | 2018-03-26 14:02 | PDOC PROGRESS REPORT ---
Subjective Progress Note for:: 03/26/18 Subjective:: Patient is more declining for the last weekend and the family decided to put in a comfort care and no more dialysis And examined bedside and the patient is morning with the pain Reason For Visit: PNEUMONIA t82.858a Physical Exam Vital Signs: Temp Pulse Resp BP Pulse Ox 98.4 F 78 17 162/78 H 100 03/26/18 07:13 03/26/18 07:13 03/26/18 07:13 03/26/18 07:13 03/26/18 07:13 Intake & Output 03/25/18 03/26/18 03/27/18 06:59 06:59 06:59 Intake Total 190 820 Output Total 450 Balance 190 370 Weight 41.6 kg General appearance: PRESENT: no acute distress Head exam: PRESENT: normocephalic Eye exam: PRESENT: PERRLA Respiratory exam: PRESENT: clear to auscultation irma Cardiovascular exam: PRESENT: +S1, +S2 Extremities exam: ABSENT: pedal edema Neurological exam: PRESENT: alert, altered Results Laboratory Results: 03/25/18 11:45 03/25/18 11:45 Impressions: Chest X-Ray 03/20/18 00:00 IMPRESSION: Improving pneumonia or asymmetric edema. Assessment & Plan - Diagnosis (1) Pneumonia Qualifiers: Pneumonia type: due to unspecified organism Laterality: right Lung location: unspecified part of lung Qualified Code(s): J18.9 - Pneumonia, unspecified organism Is this a current diagnosis for this admission?: Yes (2) Acute respiratory distress Is this a current diagnosis for this admission?: No (3) Chronic obstructive pulmonary disease Qualifiers: Emphysema type: unspecified Is this a current diagnosis for this admission?: Yes (4) Dialysis AV fistula malfunction Qualifiers: Encounter type: initial encounter Qualified Code(s): T82.590A - Other mechanical complication of surgically created arteriovenous fistula, initial encounter Is this a current diagnosis for this admission?: Yes (5) End stage renal disease on dialysis Is this a current diagnosis for this admission?: Yes (6) Hypertension Qualifiers: Hypertension type: essential hypertension Qualified Code(s): I10 - Essential (primary) hypertension Is this a current diagnosis for this admission?: Yes (7) CAD (coronary artery disease) Qualifiers: Coronary Disease-Associated Artery/Lesion type: unspecified vessel or lesion type Is this a current diagnosis for this admission?: Yes (8) Diabetes mellitus Qualifiers: Diabetes mellitus type: type 2 Is this a current diagnosis for this admission?: Yes (9) CHF (congestive heart failure) Qualifiers: Heart failure type: diastolic Is this a current diagnosis for this admission?: Yes (10) Dementia Qualifiers: Dementia type: unspecified type Dementia behavioral disturbance: without behavioral disturbance Qualified Code(s): F03.90 - Unspecified dementia without behavioral disturbance Is this a current diagnosis for this admission?: Yes - Time Time Spent with patient: 15-24 minutes Medications reviewed and adjusted accordingly: Yes Anticipated discharge: Hospice Within: Other - Inpatient Certification Medical Necessity: Need Close Monitoring Due to Risk of Patient Decompensation 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
[2018-03-26] MEDS: LORAZEPAM INJ 2 MG/1 ML VIAL IV PRN (18:10)
[2018-03-27] MEDS: LORAZEPAM INJ 2 MG/1 ML VIAL IV PRN ×8 (00:16→22:13)
[2018-03-27] MEDS: HYDROMORPHONE HCL INJ/PF 2 MG/ML AMPULE IV PRN ×9 (01:45→22:12)
[2018-03-27] MEDS: HEPARIN SOD (PORCINE) 5,000 UNIT/ML 1 ML SYRINGE SUBCUT SCH ×3 (05:16→22:23)
[2018-03-27] MEDS: LEVOTHYROXINE SODIUM 0.05 MG TABLET PO SCH (05:16)
[2018-03-27] MEDS: LANSOPRAZOLE 30 MG TAB.RAP.DR PO SCH (05:16)
[2018-03-27] MEDS: CLONIDINE HCL 0.1 MG TABLET PO SCH ×3 (05:16→22:23)
[2018-03-27] MEDS: SEVELAMER HCL 400 MG TABLET PO SCH ×3 (08:29→17:39)
[2018-03-27] MEDS: IPRATROPIUM/ALBUTEROL 0.5-2.5 MG/3 ML AMPUL NEB SCH ×3 (08:37→20:04)
[2018-03-27] MEDS: ASPIRIN 81 MG TABLET, ENT COATED PO SCH (10:33)
[2018-03-27] MEDS: GUAIFENESIN 600 MG TABLET.SA PO SCH ×2 (10:33→22:23)
[2018-03-27] MEDS: CITALOPRAM HYDROBROMIDE 20 MG TABLET PO SCH (10:33)
[2018-03-27] MEDS: AMLODIPINE BESYLATE 10 MG TABLET PO SCH (10:33)
[2018-03-27] MEDS: ALLOPURINOL 100 MG TABLET PO SCH (10:33)
[2018-03-27] MEDS: FUROSEMIDE 40 MG TABLET PO SCH ×2 (10:33→17:39)
--- NOTE | 2018-03-27 11:02 | PDOC PROGRESS REPORT ---
Subjective Progress Note for:: 03/27/18 Subjective:: Patient is currently on a comfort care lying in the bed without any distressed family on a bedside Reason For Visit: PNEUMONIA t82.858a Physical Exam Vital Signs: Temp Pulse Resp BP Pulse Ox 98.6 F 76 16 168/73 H 97 03/26/18 20:07 03/27/18 07:43 03/27/18 07:43 03/27/18 07:43 03/27/18 07:43 Intake & Output 03/26/18 03/27/18 03/28/18 06:59 06:59 06:59 Intake Total 820 40 Output Total 450 Balance 370 40 Weight 41.6 kg Physical Exam: Currently on comfort care General appearance: PRESENT: no acute distress Results Laboratory Results: 03/25/18 11:45 03/25/18 11:45 Impressions: Chest X-Ray 03/20/18 00:00 IMPRESSION: Improving pneumonia or asymmetric edema. Assessment & Plan - Diagnosis (1) Pneumonia Qualifiers: Pneumonia type: due to unspecified organism Laterality: right Lung location: unspecified part of lung Qualified Code(s): J18.9 - Pneumonia, unspecified organism Is this a current diagnosis for this admission?: Yes (2) Acute respiratory distress Is this a current diagnosis for this admission?: No (3) Chronic obstructive pulmonary disease Qualifiers: Emphysema type: unspecified Is this a current diagnosis for this admission?: Yes (4) Dialysis AV fistula malfunction Qualifiers: Encounter type: initial encounter Qualified Code(s): T82.590A - Other mechanical complication of surgically created arteriovenous fistula, initial encounter Is this a current diagnosis for this admission?: Yes (5) End stage renal disease on dialysis Is this a current diagnosis for this admission?: Yes (6) Hypertension Qualifiers: Hypertension type: essential hypertension Qualified Code(s): I10 - Essential (primary) hypertension Is this a current diagnosis for this admission?: Yes (7) CAD (coronary artery disease) Qualifiers: Coronary Disease-Associated Artery/Lesion type: unspecified vessel or lesion type Is this a current diagnosis for this admission?: Yes (8) Diabetes mellitus Qualifiers: Diabetes mellitus type: type 2 Is this a current diagnosis for this admission?: Yes (9) CHF (congestive heart failure) Qualifiers: Heart failure type: diastolic Is this a current diagnosis for this admission?: Yes (10) Dementia Qualifiers: Dementia type: unspecified type Dementia behavioral disturbance: without behavioral disturbance Qualified Code(s): F03.90 - Unspecified dementia without behavioral disturbance Is this a current diagnosis for this admission?: Yes - Time Time Spent with patient: Less than 15 minutes Medications reviewed and adjusted accordingly: Yes Anticipated discharge: Hospice Within: Other - Plan Summary Plan Summary: Continues to comfort care
[2018-03-27] MEDS: CEFEPIME 2 GM/D5W RTU 2 GM/50 ML RTUPB IV SCH (22:23)
[2018-03-28] MEDS: HYDROMORPHONE HCL INJ/PF 2 MG/ML AMPULE IV PRN ×9 (01:33→20:29)
[2018-03-28] MEDS: LORAZEPAM INJ 2 MG/1 ML VIAL IV PRN ×9 (01:33→22:19)
[2018-03-28] MEDS: HEPARIN SOD (PORCINE) 5,000 UNIT/ML 1 ML SYRINGE SUBCUT SCH ×3 (05:33→22:22)
[2018-03-28] MEDS: LANSOPRAZOLE 30 MG TAB.RAP.DR PO SCH (05:33)
[2018-03-28] MEDS: CLONIDINE HCL 0.1 MG TABLET PO SCH ×3 (05:33→22:22)
[2018-03-28] MEDS: LEVOTHYROXINE SODIUM 0.05 MG TABLET PO SCH (05:33)
[2018-03-28] MEDS: SEVELAMER HCL 400 MG TABLET PO SCH ×3 (07:15→15:11)
[2018-03-28] MEDS: IPRATROPIUM/ALBUTEROL 0.5-2.5 MG/3 ML AMPUL NEB SCH ×3 (08:10→20:41)
[2018-03-28] MEDS: GUAIFENESIN 600 MG TABLET.SA PO SCH ×2 (10:28→22:22)
[2018-03-28] MEDS: FUROSEMIDE 40 MG TABLET PO SCH ×2 (10:28→17:20)
[2018-03-28] MEDS: CITALOPRAM HYDROBROMIDE 20 MG TABLET PO SCH (10:28)
[2018-03-28] MEDS: ALLOPURINOL 100 MG TABLET PO SCH (10:28)
[2018-03-28] MEDS: AMLODIPINE BESYLATE 10 MG TABLET PO SCH (10:28)
[2018-03-28] MEDS: ASPIRIN 81 MG TABLET, ENT COATED PO SCH (10:28)
--- NOTE | 2018-03-28 12:14 | PDOC PROGRESS REPORT ---
Subjective Progress Note for:: 03/28/18 Subjective:: Patient is currently in a comfort care Reason For Visit: PNEUMONIA t82.858a Physical Exam Vital Signs: Temp Pulse Resp BP Pulse Ox 99.6 F 90 14 146/49 H 99 03/28/18 07:41 03/28/18 07:41 03/28/18 07:41 03/28/18 07:41 03/28/18 07:41 Intake & Output 03/27/18 03/28/18 03/29/18 06:59 06:59 06:59 Intake Total 40 20 Balance 40 20 Results Laboratory Results: 03/25/18 11:45 03/25/18 11:45 Impressions: Chest X-Ray 03/20/18 00:00 IMPRESSION: Improving pneumonia or asymmetric edema. Assessment & Plan - Diagnosis (1) Pneumonia Qualifiers: Pneumonia type: due to unspecified organism Laterality: right Lung location: unspecified part of lung Qualified Code(s): J18.9 - Pneumonia, unspecified organism Is this a current diagnosis for this admission?: Yes (2) Acute respiratory distress Is this a current diagnosis for this admission?: No (3) Chronic obstructive pulmonary disease Qualifiers: Emphysema type: unspecified Is this a current diagnosis for this admission?: Yes (4) Dialysis AV fistula malfunction Qualifiers: Encounter type: initial encounter Qualified Code(s): T82.590A - Other mechanical complication of surgically created arteriovenous fistula, initial encounter Is this a current diagnosis for this admission?: Yes (5) End stage renal disease on dialysis Is this a current diagnosis for this admission?: Yes (6) Hypertension Qualifiers: Hypertension type: essential hypertension Qualified Code(s): I10 - Essential (primary) hypertension Is this a current diagnosis for this admission?: Yes (7) CAD (coronary artery disease) Qualifiers: Coronary Disease-Associated Artery/Lesion type: unspecified vessel or lesion type Is this a current diagnosis for this admission?: Yes (8) Diabetes mellitus Qualifiers: Diabetes mellitus type: type 2 Is this a current diagnosis for this admission?: Yes (9) CHF (congestive heart failure) Qualifiers: Heart failure type: diastolic Is this a current diagnosis for this admission?: Yes (10) Dementia Qualifiers: Dementia type: unspecified type Dementia behavioral disturbance: without behavioral disturbance Qualified Code(s): F03.90 - Unspecified dementia without behavioral disturbance Is this a current diagnosis for this admission?: Yes - Time Time Spent with patient: 15-24 minutes Medications reviewed and adjusted accordingly: Yes Anticipated discharge: Hospice Within: within 24 hours - Plan Summary Plan Summary: Discussed with the daughter and the bedside's possible inpatient hospice tomorrow
[2018-03-29] MEDS: HYDROMORPHONE HCL INJ/PF 2 MG/ML AMPULE IV PRN ×10 (00:23→13:50)
[2018-03-29] MEDS: LORAZEPAM INJ 2 MG/1 ML VIAL IV PRN ×11 (00:24→14:51)
[2018-03-29] MEDS: LEVOTHYROXINE SODIUM 0.05 MG TABLET PO SCH (05:11)
[2018-03-29] MEDS: HEPARIN SOD (PORCINE) 5,000 UNIT/ML 1 ML SYRINGE SUBCUT SCH (05:11)
[2018-03-29] MEDS: LANSOPRAZOLE 30 MG TAB.RAP.DR PO SCH (05:11)
[2018-03-29] MEDS: CLONIDINE HCL 0.1 MG TABLET PO SCH (05:11)
[2018-03-29] MEDS: SEVELAMER HCL 400 MG TABLET PO SCH (07:53)
[2018-03-29] MEDS: IPRATROPIUM/ALBUTEROL 0.5-2.5 MG/3 ML AMPUL NEB SCH (08:24)
[2018-03-29 08:32] VITALS: BP 154/58
--- NOTE | 2018-03-29 08:54 | PDOC PROGRESS REPORT ---
Subjective Progress Note for:: 03/29/18 Subjective:: Patient is currently in a comfort care Reason For Visit: PNEUMONIA t82.858a Physical Exam Vital Signs: Temp Pulse Resp BP Pulse Ox 100.3 F 103 H 18 154/58 H 93 03/29/18 08:09 03/29/18 08:09 03/29/18 08:09 03/29/18 08:09 03/29/18 08:09 Intake & Output 03/28/18 03/29/18 03/30/18 06:59 06:59 06:59 Intake Total 20 75 Balance 20 75 Weight 43.7 kg Results Laboratory Results: 03/25/18 11:45 03/25/18 11:45 Impressions: Chest X-Ray 03/20/18 00:00 IMPRESSION: Improving pneumonia or asymmetric edema. Assessment & Plan - Diagnosis (1) Pneumonia Qualifiers: Pneumonia type: due to unspecified organism Laterality: right Lung location: unspecified part of lung Qualified Code(s): J18.9 - Pneumonia, unspecified organism Is this a current diagnosis for this admission?: Yes (2) Acute respiratory distress Is this a current diagnosis for this admission?: No (3) Chronic obstructive pulmonary disease Qualifiers: Emphysema type: unspecified Is this a current diagnosis for this admission?: Yes (4) Dialysis AV fistula malfunction Qualifiers: Encounter type: initial encounter Qualified Code(s): T82.590A - Other mechanical complication of surgically created arteriovenous fistula, initial encounter Is this a current diagnosis for this admission?: Yes (5) End stage renal disease on dialysis Is this a current diagnosis for this admission?: Yes (6) Hypertension Qualifiers: Hypertension type: essential hypertension Qualified Code(s): I10 - Essential (primary) hypertension Is this a current diagnosis for this admission?: Yes (7) CAD (coronary artery disease) Qualifiers: Coronary Disease-Associated Artery/Lesion type: unspecified vessel or lesion type Is this a current diagnosis for this admission?: Yes (8) Diabetes mellitus Qualifiers: Diabetes mellitus type: type 2 Is this a current diagnosis for this admission?: Yes (9) CHF (congestive heart failure) Qualifiers: Heart failure type: diastolic Is this a current diagnosis for this admission?: Yes (10) Dementia Qualifiers: Dementia type: unspecified type Dementia behavioral disturbance: without behavioral disturbance Qualified Code(s): F03.90 - Unspecified dementia without behavioral disturbance Is this a current diagnosis for this admission?: Yes - Plan Summary Plan Summary: Discussed with the daughter and the bedside and examined the patient patient's currently increased the Dilaudid and Ativan to make him more comfortable and hopefully waiting for the inpatient hospice
[2018-03-29] MEDS ORDERED: ATROPINE SULFATE 1% OPH SOLN 5 ML BOTTLE SL PRN (13:11)
[2018-03-29] MEDS ORDERED: HYDROMORPHONE HCL INJ/PF 2 MG/ML AMPULE IV PRN (14:26)
[2018-03-29] MEDS ORDERED: HYDROMORPHONE HCL INJ/PF 2 MG/ML AMPULE ONE (14:36)
--- NOTE | 2018-03-29 17:20 | Death Summary ---
Summary Date : 03/29/18 Autopsy: No Resuscitation Status: Comfort Measures Only - Final Diagnosis (1) Pneumonia Is this a current diagnosis for this admission?: Yes (2) Acute respiratory distress Is this a current diagnosis for this admission?: No (3) Chronic obstructive pulmonary disease Is this a current diagnosis for this admission?: Yes (4) Dialysis AV fistula malfunction Is this a current diagnosis for this admission?: Yes (5) End stage renal disease on dialysis Is this a current diagnosis for this admission?: Yes (6) Hypertension Is this a current diagnosis for this admission?: Yes (7) CAD (coronary artery disease) Is this a current diagnosis for this admission?: Yes (8) Diabetes mellitus Is this a current diagnosis for this admission?: Yes (9) CHF (congestive heart failure) Is this a current diagnosis for this admission?: Yes (10) Dementia Is this a current diagnosis for this admission?: Yes Hospital Course:: This is a 87-year-old female with the multiple medical problems admitting in the hospital with a pneumonia and end-stage renal disease with the patient have a history of this chronic pain and osteoarthritis And underlying dementia patient was initially in the hospital for several month was doing okay and take it off and again patients came to the ER from the same symptoms Underwent further dialysis Patient have a very hard time to dialyze due to the patient is very uncomfortable in a lot of pain at this point the family decided to put the patient on the comfort care and according to the Dr. Rodriguez patients probably appropriate for the hospice and comfort care and patient at this point' s for the comfort care and patients possibly in a 03/29/18
== END 2018-03-29 16:36 | DRG 193 ==
LOC: ER 13:24 → EH 18:50 → 3S 22:24
PROVIDERS: ADMIT Family Medicine; ATTEND Family Medicine
PROC: 5A1D70Z Performance of Urinary Filtration, Intermittent, Less than 6 Hours Per Day (ICD-10-PCS; 2018-03-20)
PROC: 5A1D70Z Performance of Urinary Filtration, Intermittent, Less than 6 Hours Per Day (ICD-10-PCS; 2018-03-22)
PROC: 5A1D70Z Performance of Urinary Filtration, Intermittent, Less than 6 Hours Per Day (ICD-10-PCS; principal; 2018-03-25)
DX: J18.9 Pneumonia, unspecified organism (principal); N18.6 End stage renal disease; I13.2 Hypertensive heart and chronic kidney disease with heart failure and with stage 5 chronic kidney disease, or end stage renal disease; I50.32 Chronic diastolic (congestive) heart failure; J44.0 Chronic obstructive pulmonary disease with (acute) lower respiratory infection; T82.590A Other mechanical complication of surgically created arteriovenous fistula, initial encounter; E11.22 Type 2 diabetes mellitus with diabetic chronic kidney disease; Z99.2 Dependence on renal dialysis; J44.9 Chronic obstructive pulmonary disease, unspecified; I25.10 Atherosclerotic heart disease of native coronary artery without angina pectoris; E78.5 Hyperlipidemia, unspecified; I25.2 Old myocardial infarction; K21.9 Gastro-esophageal reflux disease without esophagitis; M19.90 Unspecified osteoarthritis, unspecified site; R06.03 Acute respiratory distress; D63.1 Anemia in chronic kidney disease; G89.29 Other chronic pain; M54.9 Dorsalgia, unspecified; E87.5 Hyperkalemia; G30.1 Alzheimer's disease with late onset; F02.80 Dementia in other diseases classified elsewhere, unspecified severity, without behavioral disturbance, psychotic disturbance, mood disturbance, and anxiety; Z51.5 Encounter for palliative care; Z66 Do not resuscitate; Z90.710 Acquired absence of both cervix and uterus; Z79.82 Long term (current) use of aspirin; Z79.899 Other long term (current) drug therapy; Z88.8 Allergy status to other drugs, medicaments and biological substances; Y83.2 Surgical operation with anastomosis, bypass or graft as the cause of abnormal reaction of the patient, or of later complication, without mention of misadventure at the time of the procedure; Y83.8 Other surgical procedures as the cause of abnormal reaction of the patient, or of later complication, without mention of misadventure at the time of the procedure
CPT/HCPCS: 36415; 51701; 71045; 80048; 80053; 80202; 81001; 82803; 82962; 85025; 87040; 87086; 93005; 93010; 94640; 99285; C1752; C1769; C1894; J0360; J0692; J1170; J1610; J1644; J1940; J2060; J2250; J3010; J3370; J3490; J7060; J7620; Q9967; S0028